=== PATIENT | female | born 1950 | race Caucasian/White ===

== ENCOUNTER 2020-03-05 12:56 | Inpatient (IN) | payer MEDICARE, BC ==
[~2020-03-05] VITALS: Ht 165.1 cm; Wt 76.0 kg
[2020-03-05 16:20] VITALS: BP 187/70
[2020-03-05 17:00] VITALS: BP 168/80
--- NOTE | 2020-03-05 17:10 | HPEPDOC ---
[facility] Medical History & Physical Date of Admission Mar 05, 2020 Date of Service: Mar 05, 2020 History and Physical CHIEF COMPLAINT: facial droop HISTORY OF PRESENT ILLNESS: 69yo F with a hx of L sided CVA (4 years ago, with no residual deficits), [place] (10 years ago, s/p stenting), HTN, GERD, HLD, was transfered from [facility]. She presented there on 03/04/20 after she developed severe R sided temporal headache and nasal pain which was accompanied by profuse and repeated vomiting. On examination in the ER, she was noted to have R sided facial droop, as well as drift to upper extremities. Pateint was noted to in hypertensive urgency in ED with SBP [address] head showed as ymmetric atrophy worse on R, global volume loss with no hemorrhage, shift, or mass-effect. Per OSH notes, patient having difficulty speaking, had hoarse voice, and was unable to hold food in mouth as well as coughing/choking. Patient was transferred to [facility] for further CVA workup, as OSH facility did not have MRI capabilities, and no [employer] service. On arrival to [facility], patient was hypertensive SBP 180s. MRI brain wo contrast was ordered on arrival. Spoke to radiologist, patient has a L sided ischemic cerebellar infarct, along with R carotid artery stenosis. PAST MEDICAL HISTORY: HTN [place] s/p stenting CVA HLD GERD PAST SURGICAL HISTORY: Reviewed with patient, reports no prior surgery SOCIAL HISTORY: Active smoker, 1/2 ppd denies etoh use denies illicit drug use FAMILY HISTORY: Reviewed with patient, reports no pertinent family history ALLERGIES: Please see below. REVIEW OF SYSTEMS: CONSTITUTIONAL: patient denies fevers, chills HEENT: patient denies blurred vision, loss of vision, headache,. CARDIOVASCULAR: patient denies chest pain, palpitations. RESPIRATORY: patient denies shortness of breath, cough, hemoptysis. GASTROINTESTINAL: patient denies abdominal pain, n/v/d, blood in stool. GENITOURINARY: patient denies dysuria, discharge. SKIN: patient denies rashes. MUSCULOSKELETAL: patient denies joint pain, neck pain. NEUROLOGICAL: R facial drop, slurred speech, choking, unable to hold food in mouth, hoarse voice, dysathria. PSYCHIATRIC: patient denies SI/HI. ENDOCRINE: patient denies polyuria, heat intolerance, cold intolerance. HEMATOLOGIC/LYMPHATIC: patient denies easy bruising. HOME MEDICATIONS: Please see below. PHYSICAL EXAMINATION: VITAL SIGNS: please see below General: NAD, comfortable HEENT: PERRLA, EOMI, sclerae clear. R facial droop. Neck: supple, normal ROM, no JVD Respiratory: lungs CTAB, no wheeze, no rales, no crackles CVS: RRR, normal S1, S2, no murmurs Abdo: soft, no masses, no hepatosplenomegaly, BS+, no rebound tenderness Extremities: no edema, pulses 2+ MSK: no joint deformities, normal ROM Neuro: RUE pronator drift. 4 out of 5 strength in the right upper extremity. 4/5 strength in the right lower extremity. No loss of visual funes. 5 out of 5 strength in the left upper extremity and the left lower extremity. Cerebellar examination positive for past-pointing. Horizontal nystagmus. Psych: calm, cooperative, AAO x 3 LABORATORY DATA: See below. IMAGING: CXR 03/05/20: TECHNIQUE: Imaging protocol: XR of the chest Views: 1 view. COMPARISON: No relevant prior studies available. FINDINGS: Lungs: Unremarkable. No consolidation. Pleural space: Unremarkable. No pleural effusion. No pneumothorax. Heart/Mediastinum: Unremarkable. No cardiomegaly. Bones/joints: Unremarkable. IMPRESSION: No acute findings. MICROBIOLOGY: Please see below. ASSESSMENT: . PLAN: # L cerebllar CVA: - MRI showing acute/subacute L cerebellar CVA. Last known normal > 24 hours. tPA was not administered at outside hospital. MRA showing R carotid occlusion. L internal carotid stenosis 50-69% with increased velocities. - Discussed with Dr. Crow Reviewed MRI. Patient has a large 3-4 cm left cerebellar hemisphere stroke extending into the pontine midbrain junction. Check CT brain in am and 24 hours later to follow up on edema. Given 300 mg ASA ND. Check 2D echo. Check lipid panel. PT/OT. [employer] eval for dysphagia/aphasia. NPO for now. Start asa/plavix with lipitor 80 mg qhs. #R internal carotid occlusion: - d/w Dr. Gonzales, no further operative management #L internal carotid stenosis - 50-69%, consulted vascular surgery - Dr. Gonzales will see patient, review imaging - will need outpatient surveillance #HTN: labetalol 10 mg IV prn for SBP > 180 mmHg. takes bystolic 20 mg daily. #CAD: c/w asa/statin #HDL: statin Vital Signs Vital Signs Date Time Temp Pulse Resp B/P (MAP) Pulse Ox O2 Delivery O2 Flow Rate FiO2 03/05/20 16:20 97.1 63 20 187/70 (109) 91 Nasal Cannula 2.0 Home Medications Scheduled Aspirin (Aspirin) 81 Mg Tab.chew, 324 MG PO DAILY Nebivolol HCl (Bystolic) 20 Mg Tablet, 20 MG PO DAILY Allergies Coded Allergies: No Known Allergies (Verified Allergy, Unknown, 03/05/20) A-FIB/CHADSVASC A-FIB History Current/History of A-Fib/PAF?: No Current PO Anticoag Therapy: No DADA PAUL MD Mar 05, 2020 17:10
[2020-03-05] MEDS ORDERED: MOM 30ML SUSPENSION UDC PO PRN (17:15)
[2020-03-05] MEDS ORDERED: MAALOX 30 ML SUSP *UDC PO PRN (17:15)
[2020-03-05] MEDS ORDERED: ACETAMINOPHEN TAB 650MG DOSE (2X325MG) PO PRN (17:15)
--- NOTE | 2020-03-05 17:29 | REPVR ---
PROCEDURE INFORMATION: Exam: XR Chest, 1 View Exam date and time: 03/05/2020 5:24 PM Age: 69 years old Clinical indication: Other: Fluid overload; Additional info: Suspected fluid overload TECHNIQUE: Imaging protocol: XR of the chest Views: 1 view. COMPARISON: No relevant prior studies available. FINDINGS: Lungs: Unremarkable. No consolidation. Pleural space: Unremarkable. No pleural effusion. No pneumothorax. Heart/Mediastinum: Unremarkable. No cardiomegaly. Bones/joints: Unremarkable. IMPRESSION: No acute findings. Electronically signed by: Akbar Reyes On 03/05/2020 17:29:52 PM
[2020-03-05 18:30] VITALS: BP 172/78
[2020-03-05] MEDS ORDERED: SLF 3 ML SYR IV PRN (18:30)
--- NOTE | 2020-03-05 18:31 | REPVR ---
PROCEDURE INFORMATION: Exam: MR Head Without Contrast Exam date and time: 03/05/2020 5:09 PM Age: 69 years old Clinical indication: Speech disturbance and weakness, extremity; Bilateral; Unspecified; Additional info: Suspected CVA TECHNIQUE: Imaging protocol: MR of the head without contrast. COMPARISON: No relevant prior studies available. FINDINGS: Brain: Large focus of acute ischemia demonstrated on diffusion weighted and ADC map images in the left cerebellar hemisphere which is T1 dark and T2 bright suggesting and acute to subacute infarct. Multiple foci of T2 lengthening are demonstrated in the subcortical, periventricular and centrum semiovale white matter consistent with age-related small vessel gliosis. There is mild parenchymal atrophy. Cerebral ventricles: Normal. No ventriculomegaly. Bones/joints: Unremarkable. Paranasal sinuses: Normal as visualized. No acute sinusitis. Mastoid air cells: Normal as visualized. No mastoid effusion. Orbits: Unremarkable. Soft tissues: Unremarkable. IMPRESSION: 1. Large focus of acute ischemia demonstrated on diffusion weighted and ADC map images in the left cerebellar hemisphere which is T1 dark and T2 bright suggesting and acute to subacute infarct. 2. Multiple foci of T2 lengthening are demonstrated in the subcortical, periventricular and centrum semiovale white matter consistent with age-related small vessel gliosis. Electronically signed by: Akbar Reyes On 03/05/2020 18:31:19 PM
[2020-03-05] MEDS ORDERED: BYST20TA2 PO (18:35)
--- NOTE | 2020-03-05 18:35 | REPVR ---
PROCEDURE INFORMATION: Exam: MR Angiogram Head Without Contrast, Arteries Exam date and time: 03/05/2020 5:09 PM Age: 69 years old Clinical indication: Speech disturbance and weakness; Type not specified; Additional info: Suspected CVA TECHNIQUE: Imaging protocol: MR angiogram head without contrast. Exam focused on the arteries. COMPARISON: No relevant prior studies available. FINDINGS: ANTERIOR CIRCULATION: Right internal carotid artery: Occluded right carotid artery. Right middle cerebral artery: No occlusion or significant stenosis. No aneurysm. Right anterior cerebral artery: No occlusion or significant stenosis. No aneurysm. Left internal carotid artery: Atherosclerotic changes in the left cavernous carotid artery. Left middle cerebral artery: No occlusion or significant stenosis. No aneurysm. Left anterior cerebral artery: No occlusion or significant stenosis. No aneurysm. POSTERIOR CIRCULATION: Right vertebral artery: No occlusion or significant stenosis. No aneurysm. Left vertebral artery: No occlusion or significant stenosis. No aneurysm. Basilar artery: No occlusion or significant stenosis. No aneurysm. Right posterior cerebral artery: Right posterior cerebral artery fills via the posterior communicating and basilar arteries. Left posterior cerebral artery: No occlusion or significant stenosis. No aneurysm. IMPRESSION: Occluded right carotid artery. THIS REPORT CONTAINS FINDINGS THAT MAY BE CRITICAL TO PATIENT CARE. The findings were verbally communicated via telephone conference with DADA PAUL at 6:34 PM EDT on 03/05/2020. The findings were acknowledged and understood. Electronically signed by: Akbar Reyes On 03/05/2020 18:35:22 PM
[2020-03-05 18:49] LABS: BASO % 0.4 % (0.0-1.0); EOS # 0.2 10^3/uL (0.0-0.5); EOS % 2.1 % (0.0-3.0); HEMATOCRIT 40.2 % (36.0-47.0); HEMOGLOBIN 13.2 g/dl (12.0-15.5); LYMPH # 2.3 10^3/uL (1.5-5.0); LYMPH % 25.8 % (24.0-44.0); MEAN CORPUSCULAR HEMOGLOBIN 29.9 pg (27.0-33.0); MEAN CORPUSCULAR HGB CONC 32.8 g/dl (32.0-36.5); MONO # 0.8 10^3/uL (0.0-0.8); MONO % 9.1 % (0.0-5.0); NEUTROPHILS # 5.6 10^3/uL (1.5-8.5); NEUTROPHILS % 62.3 % (36.0-66.0); PLATELET COUNT, AUTOMATED 219 10^3/uL (150-450); RED BLOOD COUNT 4.42 10^6/uL (4.00-5.40)
--- NOTE | 2020-03-05 19:02 | REPVR ---
PROCEDURE INFORMATION: Exam: US Duplex Bilateral Extracranial Arteries Exam date and time: 03/05/2020 6:14 PM Age: 69 years old Clinical indication: Speech disturbance; Slurred speech; Additional info: Suspected CVA, weakness TECHNIQUE: Imaging protocol: Real-time Duplex ultrasound scan of the bilateral carotid and vertebral arteries combining grubbs scale, color Doppler and spectral waveform analysis. Bilateral exam. COMPARISON: MRI-Brain without Contrast 03/05/2020 5:44 PM FINDINGS: Right common carotid artery: Mild atherosclerosis in intimal thickening. No occlusion or significant stenosis. Waveforms are normal. Right internal carotid artery: Occluded. Right ICA/CCA ratio: Within normal limits. Right external carotid artery: No stenosis in the origin. Right vertebral artery: Atherosclerotic narrowing at the origin. Otherwise unremarkable. Antegrade flow. Left common carotid artery: Diffuse intimal thickening. No occlusion or significant stenosis. Waveforms are normal. Left internal carotid artery: Moderate atherosclerosis. Elevated peak systolic velocity 235 cm/s. Unremarkable. No occlusion or stenosis. Spectral broadening demonstrated in the waveform. Left ICA/CCA ratio: Within normal limits. Left external carotid artery: No stenosis in the origin. Left vertebral artery: Atherosclerotic narrowing at the origin. Otherwise unremarkable. Antegrade flow. Thryroid: Large calcified thyroid nodule on the right measures 3.2 x 1.4 x 1.5 cm. IMPRESSION: 1. Occluded right carotid artery. 2. Moderate atherosclerotic changes with elevated velocities in the proximal left internal carotid artery consistent with a 50-69% or moderate stenosis. 3. Antegrade flow in the vertebral arteries. 4. Large calcified right thyroid nodule. REFERENCES: SRU CRITERIA. The degree of internal carotid artery stenosis is based on criteria defined by the Society of Radiologists in Ultrasound (SRU). Normal is no stenosis. Mild is less than 50% stenosis. Moderate is 50-69% stenosis. Severe is greater than 69% stenosis to near occlusion. Near occlusion is a markedly narrowed lumen. Total occlusion is no detectable patent lumen. Electronically signed by: Akbar Reyes On 03/05/2020 19:02:18 PM
[2020-03-05 19:11] LABS: HEMOGLOBIN A1c 5.3 %; TROPONIN I 0.03 NG/ML (< 0.10)
[2020-03-05 19:17] LABS: ALBUMIN 3.3 GM/DL (3.2-5.2); BILIRUBIN,TOTAL 0.3 MG/DL (0.2-1.0); CALCIUM LEVEL 9.3 MG/DL (8.8-10.2); CHOLESTEROL RISK RATIO 4.525 (<5); CREATININE FOR GFR 1.16 MG/DL (0.55-1.30); GLOMERULAR FILTRATION RATE 49.5 (>45); MAGNESIUM LEVEL 2.3 MG/DL (1.8-2.4); PHOSPHORUS LEVEL 3.2 MG/DL (2.5-4.9); POTASSIUM SERUM 3.5 MEQ/L (3.5-5.1); THYROID STIMULATING HORMONE 0.684 uIU/ML (0.358-3.740); TOTAL PROTEIN 6.3 GM/DL (6.4-8.2)
[2020-03-05 19:19] LABS: FOLATE 15.9 NG/ML (>5.4)
[2020-03-05 20:00] VITALS: BP 184/86
[2020-03-05] MEDS ORDERED: ASPI81CH48 PO (20:02)
[2020-03-05] MEDS ORDERED: NS 1,000 ML IV SCH (20:09)
[2020-03-05] MEDS: DOCUSATE SODIUM 100 MG CAP PO SCH (20:10)
[2020-03-05] MEDS ORDERED: ASPIRIN 300 MG SUPP PR ONE (20:30)
[2020-03-05] MEDS: SLF 3 ML SYR IV SCH (21:09)
[2020-03-05] MEDS: LABETALOL 100MG/20ML VIAL IV SCH (21:10)
[2020-03-05 22:00] VITALS: BP 172/92
[2020-03-05] MEDS: hydrALAZINE 20MG/ML 1ML VIAL (J0360 PER 20MG) IV SCH (23:21)
[2020-03-06] VITALS (8 sets, daily range): BP systolic 143–198; BP diastolic 73–96
[2020-03-06 05:18] LABS: BASO # 0.1 10^3/uL (0.0-0.2); BASO % 0.5 % (0.0-1.0); EOS # 0.2 10^3/uL (0.0-0.5); EOS % 2.1 % (0.0-3.0); HEMATOCRIT 44.7 % (36.0-47.0); HEMOGLOBIN 14.9 g/dl (12.0-15.5); LYMPH # 1.9 10^3/uL (1.5-5.0); LYMPH % 19.3 % (24.0-44.0); MEAN CORPUSCULAR HEMOGLOBIN 30.1 pg (27.0-33.0); MEAN CORPUSCULAR HGB CONC 33.3 g/dl (32.0-36.5); MEAN CORPUSCULAR VOLUME 90.3 fl (80.0-96.0); MONO # 0.7 10^3/uL (0.0-0.8); MONO % 7.4 % (0.0-5.0); NEUTROPHILS # 6.9 10^3/uL (1.5-8.5); NEUTROPHILS % 70.4 % (36.0-66.0); PLATELET COUNT, AUTOMATED 240 10^3/uL (150-450); RED BLOOD COUNT 4.95 10^6/uL (4.00-5.40); WHITE BLOOD COUNT 9.7 10^3/uL (4.0-10.0)
[2020-03-06 05:45] LABS: ALBUMIN 3.4 GM/DL (3.2-5.2); BILIRUBIN,TOTAL 0.6 MG/DL (0.2-1.0); CALCIUM LEVEL 8.8 MG/DL (8.8-10.2); CREATININE FOR GFR 1.02 MG/DL (0.55-1.30); GLOMERULAR FILTRATION RATE 57.4 (>45); MAGNESIUM LEVEL 2.3 MG/DL (1.8-2.4); POTASSIUM SERUM 3.5 MEQ/L (3.5-5.1); TOTAL PROTEIN 6.5 GM/DL (6.4-8.2)
[2020-03-06] MEDS: SLF 3 ML SYR IV SCH ×3 (06:30→21:44)
[2020-03-06] MEDS: hydrALAZINE 20MG/ML 1ML VIAL (J0360 PER 20MG) IV SCH ×3 (06:30→17:46)
--- NOTE | 2020-03-06 07:30 | IPNPDOC ---
Date Seen The patient was seen on 03/06/20. Progress Note SUBJECTIVE: Patient appears comfortable in bed. She is alert and oriented 3. She denies any new weakness or numbness. She is moving all 4 extremities. She denies chest pain, shortness of breath, fevers, chills as well as nausea, vomiting and diarrhea. She remains nothing by mouth until speech therapy evaluation. OBJECTIVE PHYSICAL EXAMINATION: VITAL SIGNS: Please see below. General: NAD, comfortable HEENT: PERRLA, EOMI, sclerae clear. R facial droop. Neck: supple, normal ROM, no JVD Respiratory: lungs CTAB, no wheeze, no rales, no crackles CVS: RRR, normal S1, S2, no murmurs Abdo: soft, no masses, no hepatosplenomegaly, BS+, no rebound tenderness Extremities: no edema, pulses 2+ MSK: no joint deformities, normal ROM Neuro: RUE pronator drift. Noted improvement in R hemiplegia. 4+/5 strength in the right upper extremity. 4+/5 strength in the right lower extremity. No loss of visual funes. 5 out of 5 strength in the left upper extremity and the left lower extremity. Cerebellar examination positive for past-pointing. Horizontal nystagmus. Psych: calm, cooperative, AAO x 3 LABORATORY DATA, IMAGING STUDIES, MICROBIOLOGY: Please see below. CT head (03/06/20): FINDINGS: Brain: Examination reveals stable appearance of large acute hypodense infarction involving the superior left cerebellar hemisphere and extending into the adjacent carson and midbrain with stable mild mass effect but without significant midline shift. No acute hemorrhage, mass or midline shift is seen. There is mild ill-defined patchy hypodensity within the bilateral cerebral periventricular white matter, consistent with chronic microvascular ischemic changes. There is mild diffuse cerebral atrophy present, consistent with this patient's age. Cerebral ventricles: The ventricular system demonstrates mild diffuse compensatory enlargement. Bones/joints: Unremarkable. No acute fracture. Paranasal sinuses: Visualized sinuses are unremarkable. No fluid levels. Mastoid air cells: Visualized mastoid air cells are well aerated. Vasculature: There is atherosclerotic calcification of the bilateral cavernous carotid arteries. There is moderate dolichoectasia and atherosclerotic calcification of the vertebrobasilar system. Soft tissues: Unremarkable. IMPRESSION: Examination reveals stable appearance of large acute hypodense infarction involving the superior left cerebellar hemisphere and extending into the adjacent carson and midbrain with stable mild mass effect but without significant midline shift. No acute hemorrhage, mass or midline shift is seen. Echocardiogram: 2D echo ordered and pending. DVT prophylaxis ordered?: stephy Whaley ASSESSMENT AND PLAN: 69 yo F with a history of HTN, CVA, [place] (s/p stenting), GERD, presenting to [facility] with R facial droop, R hemiplegia and dysarthria. CT imaging at outside hospital showed R cortical atrophy, without hemorrhage, edema or midline shift. MRI at [facility] showing large (3-4 cm) L hemisphere cerebellar ischemic infarct extending to the pontine-midbrain junction. MRA showing R IC occlusion, L IC stenosis. Neurology and vascualar surgery consulted. Pending repeat CT brain to evaluate for edema/shift given size of ischemic infarct. Pending eval with PT/OT/ST given concerns for gait instability and risk for aspiration. # L cerebllar CVA: - MRI showing acute/subacute L cerebellar CVA. Last known normal > 24 hours. tPA was not administered at outside hospital. MRA showing R carotid occlusion. L internal carotid stenosis 50-69% with increased velocities. - Discussed with Dr. Crow Reviewed MRI. Patient has a large 3-4 cm left cerebellar hemisphere stroke extending into the pontine midbrain junction. Given 300 mg ASA IA. Check 2D echo. Check lipid panel. 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 NPO for now. - asa/plavix with lipitor 80 mg qhs. - CT head 03/06/20 showing stable mild mass effect without midline shift - repeat CT planned for 03/25/20 - ARU consult placed #R internal carotid occlusion: - d/w Dr. Gonzales, no further operative management #L internal carotid stenosis - 50-69%, consulted vascular surgery - Dr. Gonzales will see patient, review imaging - will need outpatient surveillance #HTN: labetalol 10 mg IV prn for SBP > 180 mmHg. takes bystolic 20 mg daily. #CAD: c/w asa/statin. EKG at OSH showing q wave in lead III, c/w prior infarct. #HDL: atorvastatin 80 mg qhs. Dispo: patient will required PT/OT/ST evaluation, possibility for acute/subacute rehab after discharge pending medical clearance. VS, I&O, 24H, Fishbone Vital Signs/I&O Vital Signs Date Time Temp Pulse Resp B/P (MAP) Pulse Ox O2 Delivery O2 Flow Rate FiO2 03/06/20 06:31 184/89 (120) 03/06/20 04:00 97.5 68 18 93 Nasal Cannula 2.0 I&O- Last 24 Hours up to 6 AM 03/06/20 05:59 Intake Total 200 ml Output Total 300 ml Balance -100 ml Laboratory Data 24H LABS Laboratory Tests 2 03/05/20 18:27: Immature Granulocyte % (Auto) 0.3, Neutrophils (%) (Auto) 62.3, Lymphocytes (%) (Auto) 25.8, Monocytes (%) (Auto) 9.1H, Eosinophils (%) (Auto) 2.1, Basophils (% ) (Auto) 0.4, Neutrophils # (Auto) 5.6, Lymphocytes # (Auto) 2.3, Monocytes # (Auto) 0.8, Eosinophils # (Auto) 0.2, Basophils # (Auto) 0.0, Nucleated Red Blood Cells % (auto) 0.0, Anion Gap 6L, Glomerular Filtration Rate 49.5, Estimated Mean Plasma Glucose 105, Hemoglobin A1c 5.3, Calcium Level 9.3, Phosphorus Level 3.2, Magnesium Level 2.3, Total Bilirubin 0.3, Aspartate Amino Transf (AST/SGOT) 17, Alanine Aminotransferase (ALT/SGPT) 15, Alkaline Phosphatase 93, Troponin I 0.03, LA-Lcl-W-Type Natriuretic Peptide 8092H, Total Protein 6.3L, Albumin 3.3, Albumin/Globulin Ratio 1.1L, Triglycerides Level 79, Total Cholesterol 181, LDL Cholesterol 125H, Non-HDL Cholesterol (LDL + VLDL) 141, Total HDL Cholesterol 40, Cholesterol/HDL Ratio 4.525, Folate 15.9, Thyroid Stimulating Hormone (TSH) 0.684 03/06/20 04:43: Immature Granulocyte % (Auto) 0.3, Neutrophils (%) (Auto) 70.4H, Lymphocytes (%) (Auto) 19.3L, Monocytes (%) (Auto) 7.4H, Eosinophils (%) (Auto) 2.1, Basophils (%) (Auto) 0.5, Neutrophils # (Auto) 6.9, Lymphocytes # (Auto) 1.9, Monocytes # (Auto) 0.7, Eosinophils # (Auto) 0.2, Basophils # (Auto) 0.1, Nucleated Red Blood Cells % (auto) 0.0, Anion Gap 6L, Glomerular Filtration Rate 57.4, Calcium Level 8.8, Magnesium Level 2.3, Total Bilirubin 0.6#, Aspartate Amino Transf (AST/SGOT) 24, Alanine Aminotransferase (ALT/SGPT) 14, Alkaline Phosphatase 91, Total Protein 6.5, Albumin 3.4, Albumin/Globulin Ratio 1.1L CBC/BMP Laboratory Tests 03/05/20 18:27 03/06/20 04:43 DADA PAUL MD Mar 06, 2020 07:30
--- NOTE | 2020-03-06 08:10 | REPVR ---
PROCEDURE INFORMATION: Exam: CT Head Without Contrast Exam date and time: 03/06/2020 7:22 AM Age: 69 years old Clinical indication: Other: CVA; Additional info: R/O edema given large L cerebellar CVA TECHNIQUE: Imaging protocol: Computed tomography of the head without contrast. Radiation optimization: All CT scans at this facility use at least one of these dose optimization techniques: automated exposure control; mA and/or kV adjustment per patient size (includes targeted exams where dose is matched to clinical indication); or iterative reconstruction. Other technique: STROKE PROTOCOL was implemented. COMPARISON: MRI-Brain without Contrast 03/05/2020 5:44 PM FINDINGS: Brain: Examination reveals stable appearance of large acute hypodense infarction involving the superior left cerebellar hemisphere and extending into the adjacent carson and midbrain with stable mild mass effect but without significant midline shift. No acute hemorrhage, mass or midline shift is seen. There is mild ill-defined patchy hypodensity within the bilateral cerebral periventricular white matter, consistent with chronic microvascular ischemic changes. There is mild diffuse cerebral atrophy present, consistent with this patient's age. Cerebral ventricles: The ventricular system demonstrates mild diffuse compensatory enlargement. Bones/joints: Unremarkable. No acute fracture. Paranasal sinuses: Visualized sinuses are unremarkable. No fluid levels. Mastoid air cells: Visualized mastoid air cells are well aerated. Vasculature: There is atherosclerotic calcification of the bilateral cavernous carotid arteries. There is moderate dolichoectasia and atherosclerotic calcification of the vertebrobasilar system. Soft tissues: Unremarkable. IMPRESSION: Examination reveals stable appearance of large acute hypodense infarction involving the superior left cerebellar hemisphere and extending into the adjacent carson and midbrain with stable mild mass effect but without significant midline shift. No acute hemorrhage, mass or midline shift is seen. ASSESSMENT: ASPECTS ([place] Stroke Program Early CT Score) is 10. Electronically signed by: Van Trejo On 03/06/2020 08:10:41 AM
[2020-03-06] MEDS: ASPIRIN 81 MG CHEW TABLET PO SCH (09:00)
[2020-03-06] MEDS ORDERED: ASPIRIN 81 MG ENTERIC TAB PO SCH (09:00)
[2020-03-06] MEDS ORDERED: NEBIVOLOL 5 MG TAB (BYSTOLIC) PO SCH (09:00)
[2020-03-06] MEDS: DOCUSATE SODIUM 100 MG CAP PO SCH ×2 (09:00→21:44)
[2020-03-06] MEDS: ENOXAPARIN 40MG/0.4ML SYRINGE (J1650 PER 10MG) SC SCH (09:00)
[2020-03-06] MEDS: CLOPIDOGREL 75 MG TAB PO SCH (09:00)
--- NOTE | 2020-03-06 14:27 | CR.PDOC ---
General Date of Consultation: Mar 06, [address] Gonzales REASON FOR CONSULTATION: Carotid stenosis HISTORY OF PRESENT ILLNESS: The patient is a 69-year-old female with history of left-sided CVA 4 years ago with no residual deficits, transferred from outside hospital after presenting there 03/04/20 with right sided temporal headache, accompanied by vomiting. In the emergency room there she was noted to have right-sided facial droop, dysarthria, hoarseness of her voice, and dysphagia. Blood pressure was elevated to 215 systolic. Vascular surgery is consulted regarding carotid stenosis. ALLERGIES: Please see below. HOME MEDICATIONS: Please see below. PAST MEDICAL HISTORY: Hypertension CAD/[place]/cardiac stent 2009 CVA Dyslipidemia GERD PAST SURGICAL HISTORY: Denies any prior surgeries FAMILY HISTORY: Hypertension SOCIAL HISTORY: Smoker, one half pack per day. REVIEW OF SYSTEMS: As noted in HPI otherwise 11 point review of systems is unremarkable. PHYSICAL EXAMINATION: General: NAD HEENT: MMM, R facial droop. Neck: supple, Respiratory: lungs CTA CV: S1S2 RRR Abdo: soft,NT Extremities: no edema Psych: A/O Imaging. Carotid ultrasound IMPRESSION: 1. Occluded right carotid artery. 2. Moderate atherosclerotic changes with elevated velocities in the proximal left internal carotid artery consistent with a 50-69% or moderate stenosis. 3. Antegrade flow in the vertebral arteries. 4. Large calcified right thyroid nodule. ASSESSMENT/PLAN: Carotid stenosis. The patient's carotid ultrasound has been reviewed by Dr. Gonzales. The right ICA is occluded. On the left, left ICA peak systolic velocity 235, end-diastolic velocity 87 and ICA/CCA ratio 1.98, vertebrals antegrade bilaterally. No vascular intervention is recommended at this time. Plan is to continue with surveillance. Continue to follow as outpatient, Recheck carotid ultrasound in 6 months. Continue Lipitor/Plavix/aspirin. Vital Signs/I&O Vital Signs Date Time Temp Pulse Resp B/P (MAP) Pulse Ox O2 Delivery O2 Flow Rate FiO2 03/06/20 06:31 184/89 (120) 03/06/20 04:00 97.5 68 18 93 Nasal Cannula 2.0 I&O- Last 24 Hours up to 6 AM 03/06/20 05:59 Intake Total 200 ml Output Total 300 ml Balance -100 ml Laboratory Data Labs 24H Laboratory Tests 2 03/05/20 18:27: Immature Granulocyte % (Auto) 0.3, Neutrophils (%) (Auto) 62.3, Lymphocytes (%) (Auto) 25.8, Monocytes (%) (Auto) 9.1H, Eosinophils (%) (Auto) 2.1, Basophils (%) (Auto) 0.4, Neutrophils # (Auto) 5.6, Lymphocytes # (Auto) 2.3, Monocytes # (Auto) 0.8, Eosinophils # (Auto) 0.2, Basophils # (Auto) 0.0, Nucleated Red Blood Cells % (auto) 0.0, Anion Gap 6L, Glomerular Filtration Rate 49.5, Estimated Mean Plasma Glucose 105, Hemoglobin A1c 5.3, Calcium Level 9.3, Phosphorus Level 3.2, Magnesium Level 2.3, Total Bilirubin 0.3, Aspartate Amino Transf (AST/SGOT) 17, Alanine Aminotransferase (ALT/SGPT) 15, Alkaline Phosphatase 93, Troponin I 0.03, HT-Nlz-R-Type Natriuretic Peptide 8092H, Total Protein 6.3L, Albumin 3.3, Albumin/Globulin Ratio 1.1L, Triglycerides Level 79, Total Cholesterol 181, LDL Cholesterol 125H, Non-HDL Cholesterol (LDL + VLDL) 141, Total HDL Cholesterol 40, Cholesterol/HDL Ratio 4.525, Folate 15.9, Thyroid Stimulating Hormone (TSH) 0.684 03/06/20 04:43: Immature Granulocyte % (Auto) 0.3, Neutrophils (%) (Auto) 70.4H, Lymphocytes (%) (Auto) 19.3L, Monocytes (%) (Auto) 7.4H, Eosinophils (%) (Auto) 2.1, Basophils (%) (Auto) 0.5, Neutrophils # (Auto) 6.9, Lymphocytes # (Auto) 1.9, Monocytes # (Auto) 0.7, Eosinophils # (Auto) 0.2, Basophils # (Auto) 0.1, Nucleated Red Blood Cells % (auto) 0.0, Anion Gap 6L, Glomerular Filtration Rate 57.4, Calcium Level 8.8, Magnesium Level 2.3, Total Bilirubin 0.6#, Aspartate Amino Transf (AST/SGOT) 24, Alanine Aminotransferase (ALT/SGPT) 14, Alkaline Phosphatase 91, Total Protein 6.5, Albumin 3.4, Albumin/Globulin Ratio 1.1L CBC/BMP Laboratory Tests 03/05/20 18:27 03/06/20 04:43 Allergies Coded Allergies: No Known Allergies (Verified Allergy, Unknown, 03/05/20) Home Medications Scheduled Aspirin (Aspirin) 81 Mg Tab.chew, 324 MG PO DAILY, (Reported) Nebivolol HCl (Bystolic) 20 Mg Tablet, 20 MG PO DAILY, (Reported) Abigail Lowery Mar 06, 2020 08:02
[2020-03-06] MEDS ORDERED: OXYMETAZOLINE 0.05% NASAL SPRAY (AFRIN) ONE (16:45)
[2020-03-06] MEDS: ATORVASTATIN 20 MG TAB PO SCH (21:44)
[2020-03-07] VITALS: BP 158/92
[2020-03-07 04:00] VITALS: BP 164/86
[2020-03-07 05:38] LABS: BASO % 0.5 % (0.0-1.0); EOS # 0.4 10^3/uL (0.0-0.5); EOS % 4.1 % (0.0-3.0); HEMATOCRIT 44.2 % (36.0-47.0); HEMOGLOBIN 14.9 g/dl (12.0-15.5); LYMPH # 1.9 10^3/uL (1.5-5.0); LYMPH % 22.3 % (24.0-44.0); MEAN CORPUSCULAR HEMOGLOBIN 30.3 pg (27.0-33.0); MEAN CORPUSCULAR HGB CONC 33.7 g/dl (32.0-36.5); MONO # 0.9 10^3/uL (0.0-0.8); MONO % 10.2 % (0.0-5.0); NEUTROPHILS # 5.4 10^3/uL (1.5-8.5); NEUTROPHILS % 62.7 % (36.0-66.0); PLATELET COUNT, AUTOMATED 248 10^3/uL (150-450); RED BLOOD COUNT 4.91 10^6/uL (4.00-5.40); WHITE BLOOD COUNT 8.6 10^3/uL (4.0-10.0)
[2020-03-07] MEDS: hydrALAZINE 20MG/ML 1ML VIAL (J0360 PER 20MG) IV SCH ×4 (06:00→17:25)
[2020-03-07] MEDS: SLF 3 ML SYR IV SCH ×3 (06:06→22:41)
[2020-03-07 06:21] LABS: ALBUMIN 3.1 GM/DL (3.2-5.2); BILIRUBIN,TOTAL 0.8 MG/DL (0.2-1.0); CALCIUM LEVEL 8.5 MG/DL (8.8-10.2); CREATININE FOR GFR 1.04 MG/DL (0.55-1.30); GLOMERULAR FILTRATION RATE 56.1 (>45); MAGNESIUM LEVEL 2.1 MG/DL (1.8-2.4); POTASSIUM SERUM 3.7 MEQ/L (3.5-5.1); TOTAL PROTEIN 6.5 GM/DL (6.4-8.2)
[2020-03-07 08:00] VITALS: BP 130/62
[2020-03-07] MEDS ORDERED: OXYMETAZOLINE 0.05% NASAL SPRAY (AFRIN) ONE (08:00)
--- NOTE | 2020-03-07 08:38 | REPVR ---
PROCEDURE INFORMATION: Exam: CT Head Without Contrast Exam date and time: 03/07/2020 6:00 AM Age: 69 years old Clinical indication: Abnormal findings; Abnormal radiologic findings of head/skull; Not specified; Additional info: R/O edema given large L cerebellar CVA TECHNIQUE: Imaging protocol: Computed tomography of the head without contrast. Radiation optimization: All CT scans at this facility use at least one of these dose optimization techniques: automated exposure control; mA and/or kV adjustment per patient size (includes targeted exams where dose is matched to clinical indication); or iterative reconstruction. COMPARISON: CT Head without contrast 03/06/2020 7:49 AM FINDINGS: Brain: Generalized parenchymal atrophy and evidence of microvascular ischemic disease involving periventricular subcortical white matter bilaterally. Evolving left cerebellar infarct significantly changed from previous exam. Local mass effect without midline shift. No intracranial hemorrhage. Cerebral ventricles: No ventriculomegaly. Bones/joints: Unremarkable. No acute fracture. Paranasal sinuses: Visualized sinuses are unremarkable. No fluid levels. Mastoid air cells: Visualized mastoid air cells are well aerated. Soft tissues: Unremarkable. IMPRESSION: No significant interval change. Electronically signed by: Trevon Carreno On 03/07/2020 08:37:59 AM
--- NOTE | 2020-03-07 08:57 | IPNPDOC ---
Date Seen The patient was seen on 03/06/20. Progress Note Patient seen and examined. I discussed with her that at this point, I think the elevated velocities in her left internal carotid artery are secondary to the occlusion on the right. Sometimes we see this in a compensatory fashion. When I looked at the grayscale and the color images, the patient has minimal plaque in the left ICA and common carotid artery bulb. Therefore, at this time, there is no indication for intervention on the left ICA. Regarding the right ICA occlusion, no further intervention is required for an occlusion of the carotid artery. We would like to follow the patient in 6 months in clinic with a repeat carotid duplex. I discussed this with her and she is agreeable. Regarding her left cerebellar stroke, her left vertebral artery is widely patent, so I suspect this may have been an embolic event, possibly from a cardiac etiology. We recommend best medical management for this patient with aspirin and Plavix and statin if she can tolerate, and the hospitalists have provided this for her. We appreciate the opportunity to participate in the care of this patient. VS, I&O, 24H, [place] Vital Signs/I&O Vital Signs Date Time Temp Pulse Resp B/P (MAP) Pulse Ox O2 Delivery O2 Flow Rate FiO2 03/07/20 08:00 98.0 55 18 130/62 (84) 93 Room Air 03/06/20 04:00 2.0 I&O- Last 24 Hours up to 6 AM 03/07/20 06:00 Intake Total 780 ml Output Total 500 ml Balance 280 ml Laboratory Data 24H LABS Laboratory Tests 2 03/07/20 05:07: Immature Granulocyte % (Auto) 0.2, Neutrophils (%) (Auto) 62.7, Lymphocytes (%) (Auto) 22.3L, Monocytes (%) (Auto) 10.2H, Eosinophils (%) (Auto) 4.1H, Basophils (%) (Auto) 0.5, Neutrophils # (Auto) 5.4, Lymphocytes # (Auto) 1.9, Monocytes # (Auto) 0.9H, Eosinophils # (Auto) 0.4, Basophils # (Auto) 0.0, Nucleated Red Blood Cells % (auto) 0.0, Anion Gap 5L, Glomerular Filtration Rate 56.1, Calcium Level 8.5L, Magnesium Level 2.1, Total Bilirubin 0.8, Aspartate Amino Transf (AST/SGOT) 24, Alanine Aminotransferase (ALT/SGPT) 15, Alkaline Phosphatase 86, Total Protein 6.5, Albumin 3.1L, Albumin/Globulin Ratio 0.9L CBC/BMP Laboratory Tests 03/07/20 05:07 GERARD JUAREZ MD Mar 07, 2020 08:57
[2020-03-07] MEDS: DOCUSATE SODIUM 100 MG CAP PO SCH ×2 (10:49→22:40)
[2020-03-07] MEDS: CLOPIDOGREL 75 MG TAB PO SCH (10:49)
[2020-03-07] MEDS: ENOXAPARIN 40MG/0.4ML SYRINGE (J1650 PER 10MG) SC SCH (10:49)
[2020-03-07] MEDS: ASPIRIN 81 MG CHEW TABLET PO SCH (10:49)
[2020-03-07 12:25] VITALS: BP 165/80
[2020-03-07 16:00] VITALS: BP 149/89
[2020-03-07 20:00] VITALS: BP 152/69
--- NOTE | 2020-03-07 20:13 | IPNPDOC ---
Date Seen The patient was seen on 03/07/20. Progress Note SUBJECTIVE: She was seen and examined at bedside. present. Patient very insistent on returning home. Explained that acute rehabilitation is tremendously important for future recovery. Patient is currently unsteady on her feet. An unsteady gait sway to the right. Denies chest pain, shortness of breath, nausea, vomiting, diarrhea. Tolerating mechanically altered diet as per speech therapy recommendations. OBJECTIVE PHYSICAL EXAMINATION: VITAL SIGNS: Please see below. General: NAD, comfortable HEENT: PERRLA, EOMI, sclerae clear. R facial droop. Neck: supple, normal ROM, no JVD Respiratory: lungs CTAB, no wheeze, no rales, no crackles CVS: RRR, normal S1, S2, no murmurs Abdo: soft, no masses, no hepatosplenomegaly, BS+, no rebound tenderness Extremities: no edema, pulses 2+ MSK: no joint deformities, normal ROM Neuro: RUE pronator drift. Noted improvement in R hemiplegia. 4+/5 strength in the right upper extremity. 4+/5 strength in the right lower extremity. No loss of visual funes. 5 out of 5 strength in the left upper extremity and the left lower extremity. Cerebellar examination positive for past-pointing. Horizontal nystagmus. Unsteady gait, sway to right. Psych: calm, cooperative, AAO x 3 LABORATORY DATA, IMAGING STUDIES, MICROBIOLOGY: Please see below. CT head wo contrast: FINDINGS: Brain: Generalized parenchymal atrophy and evidence of microvascular ischemic disease involving periventricular subcortical white matter bilaterally. Evolving left cerebellar infarct significantly changed from previous exam. Local mass effect without midline shift. No intracranial hemorrhage. Cerebral ventricles: No ventriculomegaly. Bones/joints: Unremarkable. No acute fracture. Paranasal sinuses: Visualized sinuses are unremarkable. No fluid levels. Mastoid air cells: Visualized mastoid air cells are well aerated. Soft tissues: Unremarkable. IMPRESSION: No significant interval change. Echocardiogram: Performed. Discussed with Dr. Garza on 03/06/2020., Mild mitral stenosis. Enlarged left atrium. Concern for possible underlying A. fib. However, none seen on telemetry for the past 48 hours DVT prophylaxis ordered?: Y, lovenox ASSESSMENT AND PLAN: 69 yo F with a history of HTN, CVA, [place] (s/p stenting), GERD, presenting to [facility] with R facial droop, R hemiplegia and dysarthria. CT imaging at outside hospital showed R cortical atrophy, without hemorrhage, edema or midline shift. MRI at [facility] showing large (3-4 cm) L hemisphere cerebellar ischemic infarct extending to the pontine-midbrain junction. MRA showing R IC occlusion, L IC stenosis. Neurology and vascualar surgery consulted. Pending repeat CT brain to evaluate for edema/shift given size of ischemic infarct. Pending eval with PT/OT/ST given concerns for gait instability and risk for aspiration. # L cerebllar CVA: - MRI showing acute/subacute L cerebellar CVA. Last known normal > 24 hours. tPA was not administered at outside hospital. MRA showing R carotid occlusion. L internal carotid stenosis 50-69% with increased velocities. - Discussed with Dr. Crow Reviewed MRI. Patient has a large 3-4 cm left cerebellar hemisphere stroke extending into the pontine midbrain junction. Given 300 mg ASA CA. Check 2D echo. Check lipid panel. PT/OT. NICK SETTER eval for dysphagia/aphasia. - s/p Flex endoscopic laryngoscopy. Rec outpatient ST. Rec outpatient ENT eval, to assess function of larynx and vocal fols as suspiciopsn for disrupted resp coordination and vocal fold movement. Lvl 3 mech soft diet with thin liqs. - . Discussed echo findings, i.e., enlarged left atrium and mitral stenosis, w ith Dr. Garza. Possible underlying atrial fibrillation. No A. fib noted on telemetry for the past 48 hours. Will recommend follow-up with cardiology as an outpatient for prolonged cardiac rhythm monitoring. - asa/plavix with lipitor 80 mg qhs. - CT head 03/06/20 showing stable mild local mass effect without midline shift - CT head 03/07/20 showing stable local mass effect without midline shift - Discussed with Dr. Sow had no repeat CT on 03 08, required as the CT scan on 03/07 represents 72 hour imaging after initial stroke. Stable change. No increase in mass effect. - [facility] consult placed, patient is a good candidate, however, refusing inpatient rehabilitation at [facility] wishes to go to [place] close to her residence #R internal carotid occlusion: - d/w Dr. Gonzales, no further operative management #L internal carotid stenosis - 50-69%, consulted vascular surgery - Dr. Gonzales will see patient, review imaging - will need outpatient surveillance #First degree AV block with bradycardia: EKG reviewed today. CA interval 200 ms, asymptomatic. Holding BB. #HTN: labetalol 10 mg IV prn for SBP > 180 mmHg. Holding bystolic as HR 40s. #CAD: c/w asa/statin. EKG at OSH showing q wave in lead III, c/w prior infarct. #HDL: atorvastatin 80 mg qhs. Dispo: Ongoing physical therapy. Recommending acute rehabilitation. Patient refusing a review. Wishes to go for acute rehabilitation in [place], near to her residence. VS, I&O, 24H, [place]bone Vital Signs/I&O Vital Signs Date Time Temp Pulse Resp B/P (MAP) Pulse Ox O2 Delivery O2 Flow Rate FiO2 03/07/20 16:00 98.0 56 18 149/89 (109) 96 Room Air 03/06/20 04:00 2.0 l I&O- Last 24 Hours up to 6 AM 03/07/20 06:00 Intake Total 780 ml Output Total 500 ml Balance 280 ml Laboratory Data 24H LABS Laboratory Tests 2 03/07/20 05:07: Immature Granulocyte % (Auto) 0.2, Neutrophils (%) (Auto) 62.7, Lymphocytes (%) (Auto) 22.3L, Monocytes (%) (Auto) 10.2H, Eosinophils (%) (Auto) 4.1H, Basophils (%) (Auto) 0.5, Neutrophils # (Auto) 5.4, Lymphocytes # (Auto) 1.9, Monocytes # (Auto) 0.9H, Eosinophils # (Auto) 0.4, Basophils # (Auto) 0.0, Nucleated Red Blood Cells % (auto) 0.0, Anion Gap 5L, Glomerular Filtration Rate 56.1, Calcium Level 8.5L, Magnesium Level 2.1, Total Bilirubin 0.8, Aspartate Amino Transf (AST/SGOT) 24, Alanine Aminotransferase (ALT/SGPT) 15, Alkaline Phosphatase 86, Total Protein 6.5, Albumin 3.1L, Albumin/Globulin Ratio 0.9L CBC/BMP Laboratory Tests 03/07/20 05:07 DADA PAUL MD Mar 07, 2020 20:12
[2020-03-07] MEDS: ATORVASTATIN 20 MG TAB PO SCH (22:41)
[2020-03-08] VITALS (7 sets, daily range): BP systolic 137–182; BP diastolic 66–120
[2020-03-08 05:55] LABS: BASO % 0.4 % (0.0-1.0); EOS # 0.4 10^3/uL (0.0-0.5); EOS % 4.8 % (0.0-3.0); HEMATOCRIT 43.4 % (36.0-47.0); HEMOGLOBIN 14.3 g/dl (12.0-15.5); LYMPH # 1.9 10^3/uL (1.5-5.0); MEAN CORPUSCULAR HEMOGLOBIN 29.8 pg (27.0-33.0); MEAN CORPUSCULAR HGB CONC 32.9 g/dl (32.0-36.5); MEAN CORPUSCULAR VOLUME 90.4 fl (80.0-96.0); MONO # 0.7 10^3/uL (0.0-0.8); MONO % 9.8 % (0.0-5.0); NEUTROPHILS # 4.5 10^3/uL (1.5-8.5); NEUTROPHILS % 59.7 % (36.0-66.0); PLATELET COUNT, AUTOMATED 222 10^3/uL (150-450); WHITE BLOOD COUNT 7.5 10^3/uL (4.0-10.0)
[2020-03-08] MEDS: hydrALAZINE 20MG/ML 1ML VIAL (J0360 PER 20MG) IV SCH ×5 (06:00→23:42)
[2020-03-08] MEDS: SLF 3 ML SYR IV SCH ×3 (06:08→20:27)
[2020-03-08 06:24] LABS: ALBUMIN 3.1 GM/DL (3.2-5.2); BILIRUBIN,TOTAL 0.6 MG/DL (0.2-1.0); CREATININE FOR GFR 1.02 MG/DL (0.55-1.30); GLOMERULAR FILTRATION RATE 57.4 (>45); MAGNESIUM LEVEL 2.2 MG/DL (1.8-2.4); TOTAL PROTEIN 5.9 GM/DL (6.4-8.2)
[2020-03-08] MEDS: CLOPIDOGREL 75 MG TAB PO SCH (08:45)
[2020-03-08] MEDS: ASPIRIN 81 MG CHEW TABLET PO SCH (08:45)
[2020-03-08] MEDS: ENOXAPARIN 40MG/0.4ML SYRINGE (J1650 PER 10MG) SC SCH (08:45)
[2020-03-08] MEDS: DOCUSATE SODIUM 100 MG CAP PO SCH ×2 (08:45→20:27)
--- NOTE | 2020-03-08 11:50 | IPNPDOC ---
Date Seen The patient was seen on 03/08/20. Progress Note SUBJECTIVE: Patient was seen and examined at bedside this morning. Patient denies new onset vision changes or subjective focal weakness or numbness. Patient is very adamant about returning home. I explained at length that she requires inpatient rehabilitation or otherwise a form of subacute rehabilitation prior to be deemed safe to return home as was outlined by physical therapy. She has requested me to call her [id number] Shruthi. I spoke with her at phone #[phone]. The family is in the process of making Shruthi her healthcare proxy. She agrees that for safety reasons physical therapy is appropriate. I explained that we will do our best to arrange for subacute rehabilitation closer to the patient's home. This can be addressed on Tuesday03/10/20 with [facility]. OBJECTIVE PHYSICAL EXAMINATION: VITAL SIGNS: Please see below. General: NAD, comfortable HEENT: PERRLA, EOMI, sclerae clear. R facial droop. Neck: supple, normal ROM, no JVD Respiratory: lungs CTAB, no wheeze, no rales, no crackles CVS: RRR, normal S1, S2, no murmurs Abdo: soft, no masses, no hepatosplenomegaly, BS+, no rebound tenderness Extremities: no edema, pulses 2+ MSK: no joint deformities, normal ROM Neuro: RUE pronator drift. Noted improvement in R hemiplegia. 4+/5 strength in the right upper extremity. 4+/5 strength in the right lower extremity. No loss of visual funes. 5 out of 5 strength in the left upper extremity and the left lower extremity. Cerebellar examination positive for past-pointing. Horizontal nystagmus. Unsteady gait, sway to right. Psych: calm, cooperative, AAO x 3 LABORATORY DATA, IMAGING STUDIES, MICROBIOLOGY: Please see below. CT head wo contrast: FINDINGS: Brain: Generalized parenchymal atrophy and evidence of microvascular ischemic disease involving periventricular subcortical white matter bilaterally. Evolving left cerebellar infarct significantly changed from previous exam. Local mass effect without midline shift. No intracranial hemorrhage. Cerebral ventricles: No ventriculomegaly. Bones/joints: Unremarkable. No acute fracture. Paranasal sinuses: Visualized sinuses are unremarkable. No fluid levels. Mastoid air cells: Visualized mastoid air cells are well aerated. Soft tissues: Unremarkable. IMPRESSION: No significant interval change. Echocardiogram: Performed. Discussed with Dr. Garza on 03/06/2020., Mild mitral stenosis. Enlarged left atrium. Concern for possible underlying A. fib. However, none seen on telemetry for the past 48 hours DVT prophylaxis ordered?: stephy Whaley ASSESSMENT AND PLAN: 69 yo F with a history of HTN, CVA, [place] (s/p stenting), GERD, presenting to [facility] with R facial droop, R hemiplegia and dysarthria. CT imaging at outside hospital showed R cortical atrophy, without hemorrhage, edema or midline shift. MRI at [facility] showing large (3-4 cm) L hemisphere cerebellar ischemic infarct extending to the pontine-midbrain junction. MRA showing R IC occlusion, L IC stenosis. Neurology and vascualar surgery consulted. Pending repeat CT brain to evaluate for edema/shift given size of ischemic infarct. Physical therapy recommending acute inpatient rehabilitation, which the patient has declined. Patient asking to be transferred to subacute rehabilitation closer to her place of residence at [place]. # L cerebellar CVA: - MRI showing acute/subacute L cerebellar CVA. Last known normal > 24 hours. tPA was not administered at outside hospital. MRA showing R carotid occlusion. L internal carotid stenosis 50-69% with increased velocities. - Discussed with Dr. Crow Reviewed MRI. Patient has a large 3-4 cm left cerebe llar hemisphere stroke extending into the pontine midbrain junction. Given 300 mg ASA MO. Check 2D echo. Check lipid panel. PT/OT. CASTING MOLDER eval for dysphagia/aphasia. - s/p Flex endoscopic laryngoscopy. Rec outpatient ST. Rec outpatient ENT eval, to assess function of larynx and vocal fols as suspiciopsn for disrupted resp coordination and vocal fold movement. Lvl 3 mech soft diet with thin liqs. - . Discussed echo findings, i.e., enlarged left atrium and mitral stenosis, with Dr. Garza. Possible underlying atrial fibrillation. No A. fib noted on telemetry for the past 48 hours. Will recommend follow-up with cardiology as an outpatient for prolonged cardiac rhythm monitoring. - asa/plavix with lipitor 80 mg qhs. - CT head 03/06/20 showing stable mild local mass effect without midline shift - CT head 03/07/20 showing stable local mass effect without midline shift - Discussed with Dr. Sow had no repeat CT on 03 08, required as the CT scan on 03/07 represents 72 hour imaging after initial stroke. Stable change. No increase in mass effect. - ARU consult placed, patient is a good candidate, however, refusing inpatient rehabilitation at [facility] wishes to go to [place] close to her residence #R internal carotid occlusion: - d/w Dr. Gonzales, no further operative management #L internal carotid stenosis - 50-69%, consulted vascular surgery - Dr. Gonzales will see patient, review imaging - will need outpatient surveillance #First degree AV block with bradycardia: EKG reviewed today. MO interval 200 ms, asymptomatic. Holding BB. #HTN: labetalol 10 mg IV prn for SBP > 180 mmHg. Holding bystolic as HR 40s. #CAD: c/w asa/statin. EKG at OSH showing q wave in lead III, c/w prior infarct. #HDL: atorvastatin 80 mg qhs. Dispo: Ongoing physical therapy. Recommending acute rehabilitation, patient has declined. Patient has expressed wishes to go home several times. At this time, this would be unsafe, which I have discussed with her and her family. Family agrees for rehab. Will work with [facility] for subacute rehab near to patient residence. VS, I&O, 24H, [facility] Vital Signs/I&O Vital Signs Date Time Temp Pulse Resp B/P (MAP) Pulse Ox O2 Delivery O2 Flow Rate FiO2 03/08/20 11:46 98.5 68 18 140/80 (100) 92 Room Air 03/06/20 04:00 2.0 I&O- Last 24 Hours up to 6 AM 03/08/20 06:00 Intake Total 1280 ml Output Total 1300 ml Balance -20 ml Laboratory Data 24H LABS Laboratory Tests 2 03/08/20 05:15: Immature Granulocyte % (Auto) 0.3, Neutrophils (%) (Auto) 59.7, Lymphocytes (%) (Auto) 25.0, Monocytes (%) (Auto) 9.8H, Eosinophils (%) (Auto) 4.8H, Basophils (%) (Auto) 0.4, Neutrophils # (Auto) 4.5, Lymphocytes # (Auto) 1.9, Monocytes # (Auto) 0.7, Eosinophils # (Auto) 0.4, Basophils # (Auto) 0.0, Nucleated Red Bloo d Cells % (auto) 0.0, Anion Gap 7L, Glomerular Filtration Rate 57.4, Calcium Level 9.0, Magnesium Level 2.2, Total Bilirubin 0.6, Aspartate Amino Transf (AST/SGOT) 23, Alanine Aminotransferase (ALT/SGPT) 17, Alkaline Phosphatase 91, Total Protein 5.9L, Albumin 3.1L, Albumin/Globulin Ratio 1.1L CBC/BMP Laboratory Tests 03/08/20 05:15 DADA PAUL MD Mar 08, 2020 11:50
[2020-03-08] MEDS: ATORVASTATIN 20 MG TAB PO SCH (20:27)
[2020-03-09] VITALS (9 sets, daily range): BP systolic 120–184; BP diastolic 62–90
[2020-03-09 05:11] LABS: BASO % 0.5 % (0.0-1.0); EOS # 0.3 10^3/uL (0.0-0.5); EOS % 4.4 % (0.0-3.0); HEMATOCRIT 42.7 % (36.0-47.0); HEMOGLOBIN 14.3 g/dl (12.0-15.5); LYMPH # 1.6 10^3/uL (1.5-5.0); LYMPH % 22.1 % (24.0-44.0); MEAN CORPUSCULAR HEMOGLOBIN 30.3 pg (27.0-33.0); MEAN CORPUSCULAR HGB CONC 33.5 g/dl (32.0-36.5); MEAN CORPUSCULAR VOLUME 90.5 fl (80.0-96.0); MONO # 0.7 10^3/uL (0.0-0.8); MONO % 9.4 % (0.0-5.0); NEUTROPHILS # 4.7 10^3/uL (1.5-8.5); NEUTROPHILS % 63.5 % (36.0-66.0); PLATELET COUNT, AUTOMATED 228 10^3/uL (150-450); RED BLOOD COUNT 4.72 10^6/uL (4.00-5.40); WHITE BLOOD COUNT 7.4 10^3/uL (4.0-10.0)
[2020-03-09] MEDS: hydrALAZINE 20MG/ML 1ML VIAL (J0360 PER 20MG) IV SCH ×4 (05:14→17:59)
[2020-03-09] MEDS: SLF 3 ML SYR IV SCH ×3 (05:14→21:31)
[2020-03-09 05:36] LABS: ALBUMIN 3.1 GM/DL (3.2-5.2); BILIRUBIN,TOTAL 0.7 MG/DL (0.2-1.0); CALCIUM LEVEL 8.5 MG/DL (8.8-10.2); CREATININE FOR GFR 1.15 MG/DL (0.55-1.30); MAGNESIUM LEVEL 2.1 MG/DL (1.8-2.4); POTASSIUM SERUM 3.9 MEQ/L (3.5-5.1); TOTAL PROTEIN 5.9 GM/DL (6.4-8.2)
[2020-03-09] MEDS ORDERED: lisinopriL 5 MG TAB PO SCH (09:00)
[2020-03-09] MEDS: ENOXAPARIN 40MG/0.4ML SYRINGE (J1650 PER 10MG) SC SCH (09:15)
[2020-03-09] MEDS: CLOPIDOGREL 75 MG TAB PO SCH (09:15)
[2020-03-09] MEDS: DOCUSATE SODIUM 100 MG CAP PO SCH ×2 (09:15→20:57)
[2020-03-09] MEDS: ASPIRIN 81 MG CHEW TABLET PO SCH (09:15)
--- NOTE | 2020-03-09 12:04 | ECGEPIP ---
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
--- NOTE | 2020-03-09 12:11 | IPNPDOC ---
Date Seen The patient was seen on 03/09/20. Progress Note SUBJECTIVE: Patient was seen and examined at bedside this morning. Patient denies new onset vision changes or subjective focal weakness or numbness. She is agreeable to rehab this morning, which I will work on with PFS on 03/10/20. She denies chest pain, shortness of breath, palpitations, n/v/d. OBJECTIVE PHYSICAL EXAMINATION: VITAL SIGNS: Please see below. General: NAD, comfortable HEENT: PERRLA, EOMI, sclerae clear. R facial droop. Neck: supple, normal ROM, no JVD Respiratory: lungs CTAB, no wheeze, no rales, no crackles CVS: RRR, normal S1, S2, no murmurs Abdo: soft, no masses, no hepatosplenomegaly, BS+, no rebound tenderness Extremities: no edema, pulses 2+ MSK: no joint deformities, normal ROM Neuro: stable exam. RUE pronator drift. Noted improvement in R hemiplegia. 4+/5 strength in the right upper extremity. 4+/5 strength in the right lower extremity. No loss of visual funes. 5 out of 5 strength in the left upper extremity and the left lower extremity. Cerebellar examination positive for past-pointing. Horizontal nystagmus. Unsteady gait, sway to right. Psych: calm, cooperative, AAO x 3 LABORATORY DATA, IMAGING STUDIES, MICROBIOLOGY: Please see below. Echocardiogram: Performed. Discussed with Dr. Garza on 03/06/2020., Mild mitral stenosis. Enlarged left atrium. Concern for possible underlying A. fib. However, none seen on telemetry for the past 48 hours DVT prophylaxis ordered?: Y, lovenox ASSESSMENT AND PLAN: 69 yo F with a history of HTN, CVA, [place] (s/p stenting), GERD, presenting to [facility] with R facial droop, R hemiplegia and dysarthria. CT imaging at outside hospital showed R cortical atrophy, without hemorrhage, edema or midline shift. MRI at [facility] showing large (3-4 cm) L hemisphere cerebellar ischemic infarct extending to the pontine-midbrain junction. MRA showing R IC occlusion, L IC stenosis. Neurology and vascualar surgery consulted. Pending repeat CT brain to evaluate for edema/shift given size of ischemic infarct. Physical therapy recommending acute inpatient rehabilitation, which the patient has declined. Patient asking to be transferred to subacute rehabilitation closer to her place of residence at [place]. # L cerebellar CVA: - MRI showing acute/subacute L cerebellar CVA. Last known normal > 24 hours. tPA was not administered at outside hospital. MRA showing R carotid occlusion. L internal carotid stenosis 50-69% with increased velocities. - Discussed with Dr. Crow Reviewed MRI. Patient has a large 3-4 cm left cerebellar hemisphere stroke extending into the pontine midbrain junction. Given 300 mg ASA SD. Check 2D echo. Check lipid panel. PT/OT. [employer] eval for dysphagia/aphasia. - s/p Flex endoscopic laryngoscopy. Rec outpatient ST[facility] outpatient ENT eval, to assess function of larynx and vocal fols as suspiciops for disrupted resp coordination and vocal fold movement. Lvl 3 mech soft diet with thin liqs. - . Discussed echo findings, i.e., enlarged left atrium and mitral stenosis, with Dr. Garza. Possible underlying atrial fibrillation. No A. fib noted on telemetry for the past 48 hours. Will recommend follow-up with cardiology as an outpatient for prolonged cardiac rhythm monitoring. - asa/plavix with lipitor 80 mg qhs. - CT head 03/06/20 showing stable mild local mass effect without midline shift - CT head 03/07/20 showing stable local mass effect without midline shift - ARU consult placed, patient is a good candidate, however, refusing inpatient rehabilitation at [facility] wishes to go to [place] close to her residence #R internal carotid artery occlusion: - d/w Dr. Gonzales, no further operative management #L internal carotid stenosis - 50-69%, consulted vascular surgery - elevated velocities in L IC, likely secondary to occlusion in R IC. - minimal plaque in L ICA and common carotid artery bulb - no surgical intervention on the L ICA at this time - no surgical intervention on the R ICA due to occlusion - f/u in 6 mo in vascular surgery clinic for a repeat carotid duplex. #First degree AV block with bradycardia: SD interval 200 ms, asymptomatic. DC beta sofi. #HTN: labetalol 10 mg IV prn for SBP > 180 mmHg. HR normalized. DC bb. Start amlodipine, lisinopril for BP control. #CAD: c/w asa/statin. EKG at OSH showing q wave in lead III, c/w prior infarct. ACEi. DC BB due to bradycardia/1st deg AV block #HDL: atorvastatin 80 mg qhs. Dispo: Ongoing physical therapy. Recommending acute rehabilitation, patient has declined. Patient has expressed wishes to go home several times. At this time, this would be unsafe, which I have discussed with her and her family. Family agrees for rehab. Patient agrees at this time. Will work with PFS for subacute rehab near to patient residence. VS, I&O, 24H, Fishbone Vital Signs/I&O Vital Signs Date Time Temp Pulse Resp B/P (MAP) Pulse Ox O2 Delivery O2 Flow Rate FiO2 03/09/20 11:52 172/88 03/09/20 11:46 98.1 70 18 92 Room Air 03/06/20 04:00 2.0 I&O- Last 24 Hours up to 6 AM 03/09/20 06:00 Intake Total 1200 ml Output Total 250 ml Balance 950 ml Laboratory Data 24H LABS Laboratory Tests 2 03/09/20 04:52: Immature Granulocyte % (Auto) 0.1, Neutrophils (%) (Auto) 63.5, Lymphocytes (%) (Auto) 22.1L, Monocytes (%) (Auto) 9.4H, Eosinophils (%) (Auto) 4.4H, Basophils (%) (Auto) 0.5, Neutrophils # (Auto) 4.7, Lymphocytes # (Auto) 1.6, Monocytes # (Auto) 0.7, Eosinophils # (Auto) 0.3, Basophils # (Auto) 0.0, Nucleated Red Blood Cells % (auto) 0.0, Anion Gap 7L, Glomerular Filtration Rate 50.0, Calcium Level 8.5L, Magnesium Level 2.1, Total Bilirubin 0.7, Aspartate Amino Transf (AST/SGOT) 24, Alanine Aminotransferase (ALT/SGPT) 18, Alkaline Phosphatase 87, Total Protein 5.9L, Albumin 3.1L, Albumin/Globulin Ratio 1.1L CBC/BMP Laboratory Tests 03/09/20 04:52 DADA PAUL MD Mar 09, 2020 12:10
[2020-03-09] MEDS ORDERED: amLODIPine 5 MG TAB PO ONE (12:15)
--- NOTE | 2020-03-09 17:00 | ECHO ---
DATE OF PROCEDURE: 03/06/2020 Height: 157 cm Weight: 76 kg REFERRING PHYSICIAN: Dr. Gomez INDICATION: Cerebrovascular accident. MEASUREMENTS: IVS 1.3 LV 4.0 LVPW 1.1 LA 3.7 Aorta 2.7 IVC 1.7 Mitral E wave velocity 102, A wave 111. E prime septal 4.7 E prime lateral 4.6 FINDINGS: This study is of rather limited technical quality with difficult visualization. The patient is in sinus rhythm with frequent supraventricular ectopy. Left ventricle is normal size and overall normal systolic function, estimated left ventricular ejection fraction (LVEF) approximately 70%. I cannot rule out subtle wall motion abnormalities. Right ventricle appears normal. Left atrium is at least moderately enlarged. Right atrium is normal size. Limited views of atrial septum appear intact. Aortic valve is sclerotic, but has normal mobility. There are very prominent degenerative abnormalities of mitral valve with prominent mitral annular calcification mostly at the base of the posterior mitral leaflet. There is at least mild restriction of leaflet mobility. Tricuspid valve appears normal. Pulmonic valve is poorly visualized, but grossly appears normal. No pericardial effusion is noted. Inferior vena cava is normal size and appropriately collapses with inspiration indicative of normal central venous pressure. Aortic root, aortic arch and visualized segment of abdominal aorta all appear grossly normal. Doppler interrogation of the aortic valve reveals no significant stenosis or insufficiency. There is trivial mitral stenosis with mean gradient 3 mmHg and no insufficiency of the valve. Tricuspid valve is functionally competent. Mitral inflow pattern and tissue Doppler imaging of mitral annulus reveal grade 1 diastolic dysfunction. Injection of agitated saline with and without Valsalva maneuver reveals no evidence for right to left or right to left shunt, but the opacification of the right-sided chamber was poor and this should not be considered completely reliable. CONCLUSIONS: 1. The study is of limited technical quality. The patient is in sinus rhythm. 2. Normal LV size with hyperdynamic LV systolic function and grade 1 diastolic dysfunction. 3. Aortic sclerosis, but no stenosis or insufficiency. 4. Degenerative abnormalities of mitral valve with no insufficiency and mild stenosis. 5. Normal central venous pressure. 6. Unable to estimate pulmonary artery pressure. 7. Negative, but poor quality bubble study. COMMENTS: No obvious explanation of cerebrovascular accident. [facility]
--- NOTE | 2020-03-09 17:06 | CR ---
DATE OF CONSULTATION: 03/06/2020 REQUESTING PHYSICIAN: Dr. Sinan Melgar REASON FOR CONSULTATION: Stroke. HISTORY OF PRESENT ILLNESS: Venessa Richard is a 69-year-old woman who had an ischemic stroke causing left hemiparesis. Patient was admitted at [facility]. History was obtained from patient, and her was present in the room. According to patient's , they were not pleased with care she received at [facility]. She was at her usual state of health until 03/04/2020 in evening around 6 p.m., when she developed severe headache associated with several profuse repeated vomiting episodes. Headache was in right frontal and temporal region. called their [id number], who is a nurse, who gave her a medicine for nausea, but it did not help. decided to put her in the truck, and they met emergency medical services (EMS) intermediate to [facility]. According to patient's , patient had difficulty walking and moving her right leg at home. When they reached [facility], she had difficulty speaking, and her words were not clear at all. In the emergency department, her blood pressure was systolic 215. CT scan of head show asymmetric atrophy, worse on right side, with global volume loss but no hemorrhage, mass effect. According to records from outside hospital, patient had difficulty speaking, had hoarse voice, and had difficulty holding food in her mouth, coughing and choking. According to patient's , they refused transfer to [facility] due to poor care she received during her last stroke, causing left hemiparesis. No tPA was given. Patient was transferred to [facility] 24 hours later. I received first call about her around 8 p.m. on 03/05/2020. This was 26 hours after onset of symptoms. I was told that MRI scan of brain showed large cerebellar stroke. The patient also had right- sided hemiparesis and right-sided facial droop. I reviewed the scans, and explained that there is a clear extension of ischemic stroke into left mid brain/carson junction into ventral surface effecting corticospinal tracts. I recommended aspirin 300 mg rectal until patient is able to swallow. Patient had swallow evaluation this morning and will have more tests tomorrow. She states that she was cleared to have pureed diet. She continues to have dysarthria. She has mild right-sided weakness and facial weakness. According to patient and her , they did not follow with any neurologist since her previous stroke. They were not aware of right internal carotid artery occlusion in past, and it was seen on her scans this time. DIAGNOSTIC STUDIES: MRI scan of brain and CT scans of head were reviewed and showed acute left cerebellar, mid brain/carson ischemic stroke without mass effect or edema. She had a repeat CT scan of head this morning, which showed stable findings. MRA brain and carotid ultrasound showed occlusion of right internal carotid artery with normal rest of the vasculature. MEDICAL HISTORY: 1. Hypertension. 2. Myocardial infarction/coronary artery disease, status post stent. 3. Stroke, causing left hemiparesis in past, for which patient was treated at [facility]. 4. Dyslipidemia. 5. Acid reflux. SOCIAL HISTORY: Patient smokes half pack per day. She denies any alcohol or illicit drug. FAMILY HISTORY: Unremarkable and noncontributory. REVIEW OF SYSTEMS: All systems were reviewed and found to be noncontributory except as mentioned in the history of present illness. HOME MEDICATIONS: - aspirin 81 mg, four tablets by mouth daily - Bystolic 20 mg by mouth daily - Patient's states that she has been taking Plavix 75 mg by mouth daily and has not missed doses. ALLERGIES: None. PHYSICAL EXAMINATION: Temperature 97.8, pulse 60, respiratory rate 18, blood pressure 143/73, 96% saturation on room air. HEART: Regular rate and rhythm. LUNGS: Clear to auscultation. ABDOMEN: Nondistended. No pedal edema. MUSCULOSKELETAL: No abnormalities. No mass. No signs of meningeal irritation. Patient is awake, alert, oriented to place, person, and time. She has significant dysarthria of her speech. Normal comprehension and repetition. Recent and distant memory is intact. Visual funes are full to confrontation. No nystagmus. Extraocular muscles are intact. No facial weakness on left side. She has right-sided upper motor neuron type facial weakness. Tingue midline. She has 4/5 right sided strength and 5/5 left side. Normal sensations. She has bilatreal dysmetria. Gait could not be tested. ASSESSMENT: 1. Left Carson/Midbrain and cerbellar CVA. 2. Old CVA causing hemiparesis. 3. Hypertension and Dyslipidemia. PLAN: 1. Repeat CT scan of head tomorrow and day after tomorrow to rule out edema and hydrocephalus. 2. Aspirin 300 mg per rectum until she is able to swallow. 3. Check fasting lipid profile. 4. Atorvastatin 40 mg by mouth daily. 5. No intervention can be done, for right internal carotid artery complete occlusion. Vascular surgery said the same. She has 50%-69% left internal carotic artery stenosis, for which she will require periodic ultrasounds for surveillance. 6. Physical and occupational therapy and rehabilitation. 7. Keep systolic blood pressure below 180 and diastolic blood pressure below 90. 8. Follow with our office within 2 weeks after hospital discharge. ROSINA
[2020-03-09] MEDS: hydroCHLOROthiazide 12.5 MG CAPSULE PO SCH (17:59)
[2020-03-09] MEDS: LOSARTAN 25 MG TAB PO SCH (17:59)
[2020-03-09] MEDS: ATORVASTATIN 20 MG TAB PO SCH (20:57)
[2020-03-09] MEDS: LABETALOL 100MG/20ML VIAL IV SCH (21:17)
[2020-03-10] VITALS (7 sets, daily range): BP systolic 147–180; BP diastolic 60–90
[2020-03-10 05:30] LABS: BASO % 0.4 % (0.0-1.0); EOS # 0.4 10^3/uL (0.0-0.5); EOS % 4.4 % (0.0-3.0); HEMATOCRIT 42.4 % (36.0-47.0); HEMOGLOBIN 13.9 g/dl (12.0-15.5); LYMPH % 24.7 % (24.0-44.0); MEAN CORPUSCULAR HEMOGLOBIN 29.8 pg (27.0-33.0); MEAN CORPUSCULAR HGB CONC 32.8 g/dl (32.0-36.5); MONO # 0.9 10^3/uL (0.0-0.8); MONO % 10.6 % (0.0-5.0); NEUTROPHILS # 4.9 10^3/uL (1.5-8.5); NEUTROPHILS % 59.4 % (36.0-66.0); PLATELET COUNT, AUTOMATED 230 10^3/uL (150-450); RED BLOOD COUNT 4.66 10^6/uL (4.00-5.40); WHITE BLOOD COUNT 8.2 10^3/uL (4.0-10.0)
[2020-03-10 05:52] LABS: ALBUMIN 3.3 GM/DL (3.2-5.2); BILIRUBIN,TOTAL 0.7 MG/DL (0.2-1.0); CALCIUM LEVEL 8.8 MG/DL (8.8-10.2); CREATININE FOR GFR 1.19 MG/DL (0.55-1.30); MAGNESIUM LEVEL 2.2 MG/DL (1.8-2.4); POTASSIUM SERUM 4.2 MEQ/L (3.5-5.1); TOTAL PROTEIN 6.5 GM/DL (6.4-8.2)
[2020-03-10] MEDS: hydrALAZINE 20MG/ML 1ML VIAL (J0360 PER 20MG) IV SCH ×4 (06:12→17:57)
[2020-03-10] MEDS: SLF 3 ML SYR IV SCH ×2 (06:12→14:00)
[2020-03-10] MEDS ORDERED: hydroCHLOROthiazide 25 MG TAB PO SCH (09:00)
[2020-03-10] MEDS: ASPIRIN 81 MG CHEW TABLET PO SCH (09:02)
[2020-03-10] MEDS: LOSARTAN 25 MG TAB PO SCH (09:02)
[2020-03-10] MEDS: ENOXAPARIN 40MG/0.4ML SYRINGE (J1650 PER 10MG) SC SCH (09:02)
[2020-03-10] MEDS: hydroCHLOROthiazide 12.5 MG CAPSULE PO SCH (09:03)
[2020-03-10] MEDS: DOCUSATE SODIUM 100 MG CAP PO SCH (09:03)
[2020-03-10] MEDS: CLOPIDOGREL 75 MG TAB PO SCH (09:03)
--- NOTE | 2020-03-10 13:36 | IPNPDOC ---
Date Seen The patient was seen on 03/10/20. Progress Note SUBJECTIVE: Patient was seen and examined at bedside this morning. Patient denies new onset vision changes or subjective focal weakness or numbness. She denies chest pain, shortness of breath, palpitations, n/v/d. OBJECTIVE PHYSICAL EXAMINATION: VITAL SIGNS: Please see below. General: NAD, comfortable HEENT: PERRLA, EOMI, sclerae clear. R facial droop. Neck: supple, normal ROM, no JVD Respiratory: lungs CTAB, no wheeze, no rales, no crackles CVS: RRR, normal S1, S2, no murmurs Abdo: soft, no masses, no hepatosplenomegaly, BS+, no rebound tenderness Extremities: no edema, pulses 2+ MSK: no joint deformities, normal ROM Neuro: stable exam. RUE pronator drift. Noted improvement in R hemiplegia. 4+/5 strength in the right upper extremity. 4+/5 strength in the right lower extremity. No loss of visual funes. 5 out of 5 strength in the left upper extremity and the left lower extremity. Cerebellar examination positive for past-pointing. Horizontal nystagmus. Unsteady gait, sway to right. Psych: calm, cooperative, AAO x 3 LABORATORY DATA, IMAGING STUDIES, MICROBIOLOGY: Please see below. Echocardiogram: Performed. Discussed with Dr. Garza on 03/06/2020., Mild mitral stenosis. Enlarged left atrium. Concern for possible underlying A. fib. However, none seen on telemetry for the past 48 hours DVT prophylaxis ordered?: Y, lovenox ASSESSMENT AND PLAN: 69 yo F with a history of HTN, CVA, [place] (s/p stenting), GERD, presenting to [facility] with R facial droop, R hemiplegia and dysarthria. CT imaging at outside hospital showed R cortical atrophy, without hemorrhage, edema or midline shift. MRI at [facility] showing large (3-4 cm) L hemisphere cerebellar ischemic infarct extending to the pontine-midbrain junction. MRA showing R IC occlusion, L IC stenosis. Neurology and vascualar surgery consulted. Pending repeat CT brain to evaluate for edema/shift given size of ischemic infarct. Physical therapy recommending acute inpatient rehabilitation, which the patient has declined. Patient asking to be transferred to subacute rehabilitation closer to her place of residence at [place]. # L cerebellar CVA: - MRI showing acute/subacute L cerebellar CVA. Last known normal > 24 hours. tPA was not administered at outside hospital. MRA showing R carotid occlusion. L internal carotid stenosis 50-69% with increased velocities. - Discussed with Dr. Crow Reviewed MRI. Patient has a large 3-4 cm left cerebellar hemisphere stroke extending into the pontine midbrain junction. Given 300 mg ASA GA. Check 2D echo. LDL 125. HDL 40. PT/OT. [employer] REPRESENTATIVE eval for dysphagia/aphasia. - s/p Flex endoscopic laryngoscopy. Rec outpatient . [facility] outpatient ENT eval, to assess function of larynx and vocal fols as suspicious for disrupted resp coordination and vocal fold movement. Lvl 3 mech soft diet with thin liqs. - . Discussed echo findings, i.e., enlarged left atrium and mitral stenosis, with Dr. Garza. Possible underlying atrial fibrillation. No A. fib noted on telemetry. Will recommend follow-up with cardiology as an outpatient for prolonged cardiac rhythm monitoring. - asa/plavix with lipitor 80 mg qhs. - CT head 03/06/20 showing stable mild local mass effect without midline shift - CT head 03/07/20 showing stable local mass effect without midline shift - ARU consult placed, patient is a good candidate, pending family and patient decision at this time. #R internal carotid artery occlusion: - d/w Dr. Gonzales, no further operative management #L internal carotid stenosis - 50-69%, consulted vascular surgery - elevated velocities in L IC, likely secondary to occlusion in R IC. - minimal plaque in L ICA and common carotid artery bulb - no surgical intervention on the L ICA at this time - no surgical intervention on the R ICA due to occlusion - f/u in 6 mo in vascular surgery clinic for a repeat carotid duplex. #First degree AV block with bradycardia: HR 68. GA interval 200 ms, a symptomatic. DC beta sofi. #HTN: labetalol 10 mg IV prn for SBP > 180 mmHg. HR normalized. DC bb. Start amlodipine, lisinopril for BP control. #CAD: c/w asa/statin. EKG at OSH showing q wave in lead III, c/w prior infarct. ACEi. DC BB due to bradycardia/1st deg AV block #HDL: atorvastatin 80 mg qhs. Dispo: Ongoing physical therapy. Discussed with patient's son Carlos this morning at phone #[phone], the family would like patient to receive rehab at [facility]. Planned family meeting this afternoon. Dr. Guzmán aware. VS, I&O, 24H, Jose David Vital Signs/I&O Vital Signs Date Time Temp Pulse Resp B/P (MAP) Pulse Ox O2 Delivery O2 Flow Rate FiO2 03/10/20 12:00 98.6 68 20 147/90 (109) 94 Room Air 03/06/20 04:00 2.0 I&O- Last 24 Hours up to 6 AM 03/10/20 06:00 Intake Total 1020 ml Output Total 625 ml Balance 395 ml Laboratory Data 24H LABS Laboratory Tests 2 03/10/20 04:45: Immature Granulocyte % (Auto) 0.5, Neutrophils (%) (Auto) 59.4, Lymphocytes (%) (Auto) 24.7, Monocytes (%) (Auto) 10.6H, Eosinophils (%) (Auto) 4.4H, Basophils (%) (Auto) 0.4, Neutrophils # (Auto) 4.9, Lymphocytes # (Auto) 2.0, Monocytes # (Auto) 0.9H, Eosinophils # (Auto) 0.4, Basophils # (Auto) 0.0, Nucleated Red Blood Cells % (auto) 0.0, Anion Gap 7L, Glomerular Filtration Rate 48.0, Calcium Level 8.8, Magnesium Level 2.2, Total Bilirubin 0.7, Aspartate Amino Transf (AST/SGOT) 29, Alanine Aminotransferase (ALT/SGPT) 25, Alkaline Phosphatase 100, Total Protein 6.5, Albumin 3.3, Albumin/Globulin Ratio 1.0L CBC/BMP Laboratory Tests 03/10/20 04:45 DADA PAUL MD Mar 10, 2020 13:36
--- NOTE | 2020-03-10 14:38 | DS.PDOC ---
Discharge Summary General Date of Admission Mar 05, 2020 at 16:13 Date of Discharge 03/10/20 Attending Physician: DADA PAUL MD Discharge Summary PROCEDURES PERFORMED DURING STAY: [None]. 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 HISTORY OF PRESENT ILLNESS: 69yo F with a hx of L sided CVA (4 years ago, with no residual deficits), VT (10 years ago, s/p stenting), HTN, GERD, HLD, was transfered from [facility]. She presented there on 03/04/20 after she developed severe R sided temporal headache and nasal pain which was accompanied by profuse and repeated vomiting. On examination in the ER, she was noted to have R sided facial droop, as well as drift to upper extremities. Pateint was noted to in hypertensive urgency in ED with SBP [address] head showed asymmetric atrophy worse on R, global volume loss with no hemorrhage, shift, or mass-effect. Per OSH notes, patient having difficulty speaking, had hoarse voice, and was unable to hold food in mouth as well as coughing/choking. Patient was transferred to [facility] for further CVA workup, as OSH facility did not have MRI capabilities, and no SPINNING MACHINE OPERATOR service. On arrival to [facility], patient was hypertensive SBP 180s. MRI brain wo contrast was ordered on arrival. Spoke to radiologist, patient has a L sided ischemic cerebe llar infarct, along with R carotid artery stenosis. HOSPITAL COURSE: 69 yo F with a history of HTN, CVA, VT (s/p stenting), GERD, presenting to [facility] with R facial droop, R hemiplegia and dysarthria. CT imaging at outside hospital showed R cortical atrophy, without hemorrhage, edema or midline shift. MRI at [facility] showing large (3-4 cm) L hemisphere cerebellar ischemic infarct extending to the pontine-midbrain junction. MRA showing R IC occlusion, L IC stenosis. Neurology and vascualar surgery consulted. Pending repeat CT brain to evaluate for edema/shift given size of ischemic infarct. Physical therapy recommending acute inpatient rehabilitation, which the patient has declined. Patient asking to be transferred to subacute rehabilitation closer to her place of residence at [place]. # L cerebellar CVA: - MRI showing acute/subacute L cerebellar CVA. Last known normal > 24 hours. tPA was not administered at outside hospital. MRA showing R carotid occlusion. L internal carotid stenosis 50-69% with increased velocities. - Discussed with Dr. Crow Reviewed MRI. Patient has a large 3-4 cm left cerebellar hemisphere stroke extending into the pontine midbrain junction. Given 300 mg ASA OK. Check 2D echo. LDL 125. HDL 40. PT/OT. SPINNING MACHINE OPERATOR eval for dysphagia/aphasia. - s/p Flex endoscopic laryngoscopy. Rec outpatient ST. Rec outpatient ENT eval, to assess function of larynx and vocal fols as suspicious for disrupted resp coordination and vocal fold movement. Lvl 3 mech soft diet with thin liqs. - . Discussed echo findings, i.e., enlarged left atrium and mitral stenosis, with Dr. Garza. Possible underlying atrial fibrillation. No A. fib noted on telemetry. Will recommend follow-up with cardiology as an outpatient for prolonged cardiac rhythm monitoring. - asa/plavix with lipitor 80 mg qhs. - CT head 03/06/20 showing stable mild local mass effect without midline shift - CT head 03/07/20 showing stable local mass effect without midline shift - ARU consult placed, patient accepted for acute rehab. #R internal carotid artery occlusion: - d/w Dr. Gonzales, no further operative management #L internal carotid stenosis - 50-69%, consulted vascular surgery - elevated velocities in L IC, likely secondary to occlusion in R IC. - minimal plaque in L ICA and common carotid artery bulb - no surgical intervention on the L ICA at this time - no surgical intervention on the R ICA due to occlusion - f/u in 6 mo in vascular surgery clinic for a repeat carotid duplex. #First degree AV block with bradycardia: HR 68. OK interval 200 ms, asymptomatic. DC beta sofi. #HTN: labetalol 10 mg IV prn for SBP > 180 mmHg. HR normalized. DC bb. Start amlodipine, lisinopril for BP control. #CAD: c/w asa/statin. EKG at OSH showing q wave in lead III, c/w prior infarct. ACEi. DC BB due to bradycardia/1st deg AV block #HDL: atorvastatin 80 mg qhs. Dispo: Ongoing physical therapy. Discussed with patient's son Carlos this morning at phone #[phone], the family would like patient to receive rehab at [facility]. Following family meeting, patient agreed for ARU. DISCHARGE MEDICATIONS: Please see below. ALLERGIES: Please see below. PHYSICAL EXAMINATION ON DISCHARGE: VITAL SIGNS: Please see below. General: NAD, comfortable HEENT: PERRLA, EOMI, sclerae clear. R facial droop. Neck: supple, normal ROM, no JVD Respiratory: lungs CTAB, no wheeze, no rales, no crackles CVS: RRR, normal S1, S2, no murmurs Abdo: soft, no masses, no hepatosplenomegaly, BS+, no rebound tenderness Extremities: no edema, pulses 2+ MSK: no joint deformities, normal ROM Neuro: stable exam. RUE pronator drift. Noted improvement in R hemiplegia. 4+/5 strength in the right upper extremity. 4+/5 strength in the right lower extremity. No loss of visual funes. 5 out of 5 strength in the left upper extremity and the left lower extremity. Cerebellar examination positive for past-pointing. Horizontal nystagmus. Unsteady gait, sway to right. Psych: calm, cooperative, AAO x 3 LABORATORY DATA: Please see below. IMAGING: MRI brain wo contrast (03/10/20): FINDINGS: Brain: Large focus of acute ischemia demonstrated on diffusion weighted and ADC map images in the left cerebellar hemisphere which is T1 dark and T2 bright suggesting and acute to subacute infarct. Multiple foci of T2 lengthening are demonstrated in the subcortical, periventricular and centrum semiovale white matter consistent with age-related small vessel gliosis. There is mild parenchymal atrophy. Cerebral ventricles: Normal. No ventriculomegaly. Bones/joints: Unremarkable. Paranasal sinuses: Normal as visualized. No acute sinusitis. Mastoid air cells: Normal as visualized. No mastoid effusion. Orbits: Unremarkable. Soft tissues: Unremarkable. IMPRESSION: 1. Large focus of acute ischemia demonstrated on diffusion weighted and ADC map images in the left cerebellar hemisphere which is T1 dark and T2 bright suggesting and acute to subacute infarct. 2. Multiple foci of T2 lengthening are demonstrated in the subcortical, periventricular and centrum semiovale white matter consistent with age-related small vessel gliosis. MRA without contrast (03/05/20): FINDINGS: ANTERIOR CIRCULATION: Right internal carotid artery: Occluded right carotid artery. Right middle cerebral artery: No occlusion or significant stenosis. No aneurysm. Right anterior cerebral artery: No occlusion or significant stenosis. No aneurysm. Left internal carotid artery: Atherosclerotic changes in the left cavernous carotid artery. Left middle cerebral artery: No occlusion or significant stenosis. No aneurysm. Left anterior cerebral artery: No occlusion or significant stenosis. No aneurysm. POSTERIOR CIRCULATION: Right vertebral artery: No occlusion or significant stenosis. No aneurysm. Left vertebral artery: No occlusion or significant stenosis. No aneurysm. Basilar artery: No occlusion or significant stenosis. No aneurysm. Right posterior cerebral artery: Right posterior cerebral artery fills via the posterior communicating and basilar arteries. Left posterior cerebral artery: No occlusion or significant stenosis. No aneurysm. IMPRESSION: Occluded right carotid artery. US Duplex Carotids bilateral (03/05/20): FINDINGS: Right common carotid artery: Mild atherosclerosis in intimal thickening. No occlusion or significant stenosis. Waveforms are normal. Right internal carotid artery: Occluded. Right ICA/CCA ratio: Within normal limits. Right external carotid artery: No stenosis in the origin. Right vertebral artery: Atherosclerotic narrowing at the origin. Otherwise unremarkable. Antegrade flow. Left common carotid artery: Diffuse intimal thickening. No occlusion or significant stenosis. Waveforms are normal. Left internal carotid artery: Moderate atherosclerosis. Elevated peak systolic velocity 235 cm/s. Unremarkable. No occlusion or stenosis. Spectral broadening demonstrated in the waveform. Left ICA/CCA ratio: Within normal limits. Left external carotid artery: No stenosis in the origin. Left vertebral artery: Atherosclerotic narrowing at the origin. Otherwise unremarkable. Antegrade flow. Thyroid: Large calcified thyroid nodule on the right measures 3.2 x 1.4 x 1.5 cm. IMPRESSION: 1. Occluded right carotid artery. 2. Moderate atherosclerotic changes with elevated velocities in the proximal left internal carotid artery consistent with a 50-69% or moderate stenosis. 3. Antegrade flow in the vertebral arteries. 4. Large calcified right thyroid nodule. CT head wo contrast (03/06/20): FINDINGS: Brain: Examination reveals stable appearance of large acute hypodense infarction involving the superior left cerebellar hemisphere and extending into the adjacent carson and midbrain with stable mild mass effect but without significant midline shift. No acute hemorrhage, mass or midline shift is seen. There is mild ill-defined patchy hypodensity within the bilateral cerebral periventricular white matter, consistent with chronic microvascular ischemic changes. There is mild diffuse cerebral atrophy present, consistent with this patient's age. Cerebral ventricles: The ventricular system demonstrates mild diffuse compensatory enlargement. Bones/joints: Unremarkable. No acute fracture. Paranasal sinuses: Visualized sinuses are unremarkable. No fluid levels. Mastoid air cells: Visualized mastoid air cells are well aerated. Vasculature: There is atherosclerotic calcification of the bilateral cavernous carotid arteries. There is moderate dolichoectasia and atherosclerotic calcification of the vertebrobasilar system. Soft tissues: Unremarkable. IMPRESSION: Examination reveals stable appearance of large acute hypodense infarction involving the superior left cerebellar hemisphere and extending into the adjacent carson and midbrain with stable mild mass effect but without significant midline shift. No acute hemorrhage, mass or midline shift is seen. CT head wo contrast (03/07/20): FINDINGS: Brain: Generalized parenchymal atrophy and evidence of microvascular ischemic disease involving periventricular subcortical white matter bilaterally. Evolving left cerebellar infarct significantly changed from previous exam. Local mass effect without midline shift. No intracranial hemorrhage. Cerebral ventricles: No ventriculomegaly. Bones/joints: Unremarkable. No acute fracture. Paranasal sinuses: Visualized sinuses are unremarkable. No fluid levels. Mastoid air cells: Visualized mastoid air cells are well aerated. Soft tissues: Unremarkable. IMPRESSION: No significant interval change. PROGNOSIS: good ACTIVITY: [As tolerated]. DIET: level 1/pureed, honey thick liquids, meds crushed in puree assist. DISCHARGE PLAN: ARU, specialist and PCP f/u DISPOSITION: ARU DISCHARGE INSTRUCTIONS: 1. Please follow-up with PCP in 3-5 days. 2. Please follow up with neurology in 2-4 weeks. 3. Need referral to ENT for possible vocal cord dysfunction in 1-2 weeks 4. Need referral/f/u with Cardiology for prolonged cardiac rhythm monitoring to ensure lack of atrial fibrilation 5. Please take your medications as prescribed. 6. If you develop fevers, chills, n/v/d, falls, chest pain, palpitations or otherwise worsening of your symptoms, please call 911 or return to the emergency department. ITEMS TO FOLLOWUP ON ON OUTPATIENT: 1. neurology follow up 2. ENT follow up for vocal cord function 3. cardio for holter/rhythm monitoring DISCHARGE CONDITION: [Stable]. TIME SPENT ON DISCHARGE: Greater than 30 minutes. Vital Signs/I&Os Vital Signs Date Time Temp Pulse Resp B/P (MAP) Pulse Ox O2 Delivery O2 Flow Rate FiO2 03/10/20 12:00 98.6 68 20 147/90 (109) 94 Room Air 03/06/20 04:00 2.0 I&O- Last 24 Hours up to 6 AM 03/10/20 05:59 Intake Total 1020 ml Output Total 625 ml Balance 395 ml Laboratory Data Labs 24H Laboratory Tests 2 03/10/20 04:45: Immature Granulocyte % (Auto) 0.5, Neutrophils (%) (Auto) 59.4, Lymphocytes (%) (Auto) 24.7, Monocytes (%) (Auto) 10.6H, Eosinophils (%) (Auto) 4.4H, Basophils (%) (Auto) 0.4, Neutrophils # (Auto) 4.9, Lymphocytes # (Auto) 2.0, Monocytes # (Auto) 0.9H, Eosinophils # (Auto) 0.4, Basophils # (Auto) 0.0, Nucleated Red Blood Cells % (auto) 0.0, Anion Gap 7L, Glomerular Filtration Rate 48.0, Calcium Level 8.8, Magnesium Level 2.2, Total Bilirubin 0.7, Aspartate Amino Transf (AST/SGOT) 29, Alanine Aminotransferase (ALT/SGPT) 25, Alkaline Phosphatase 100, Total Protein 6.5, Albumin 3.3, Albumin/Globulin Ratio 1.0L CBC/BMP Laboratory Tests 03/10/20 04:45 Discharge Medications Scheduled Aspirin (Children's Aspirin) 81 Mg Tab.chew, 81 MG PO DAILY Atorvastatin Calcium (Atorvastatin Calcium) 80 Mg Tablet, 80 MG PO QHS Clopidogrel Bisulfate (Clopidogrel) 75 Mg Tablet, 75 MG PO DAILY Docusate Sodium (Docusate Sodium) 100 Mg Capsule, 100 MG PO BID Hydrochlorothiazide (Hydrochlorothiazide) 12.5 Mg Capsule, 12.5 MG PO DAILY Losartan Potassium (Cozaar) 25 Mg Tablet, 25 MG PO DAILY Scheduled PRN Acetaminophen (Acetaminophen) 325 Mg Tablet, 650 MG PO Q4H PRN for PAIN OR FEVER Aluminum/Magnesium/Simeth (Mag-Al Plus Suspension) 30 Ml Oral.susp, 30 ML PO DAILY PRN for DYSPEPSIA Allergies Coded Allergies: No Known Allergies (Verified Allergy, Unknown, 03/05/20) DADA PAUL MD Mar 10, 2020 14:37
[2020-03-10] MEDS ORDERED: ACET1TAB55 PO (14:55)
[2020-03-10] MEDS ORDERED: CLOP75TA2 PO (14:55)
[2020-03-10] MEDS ORDERED: HYDR12CA PO (14:55)
[2020-03-10] MEDS ORDERED: MYLASSUD PO (14:55)
[2020-03-10] MEDS ORDERED: DOCU100C16 PO (14:55)
[2020-03-10] MEDS ORDERED: ASPI81CH8 PO (14:55)
[2020-03-10] MEDS ORDERED: COZA1TAB PO (14:55)
[2020-03-10] MEDS ORDERED: ATOR80TA59 PO (14:55)
== END 2020-03-10 18:23 | DRG 65 ==
LOC: EDBD → M PCU 16:13
PROVIDERS: ADMIT Family Medicine; ATTEND Family Medicine
DX: I63.442 Cerebral infarction due to embolism of left cerebellar artery (principal); G81.91 Hemiplegia, unspecified affecting right dominant side; I25.2 Old myocardial infarction; K21.9 Gastro-esophageal reflux disease without esophagitis; E78.5 Hyperlipidemia, unspecified; I44.0 Atrioventricular block, first degree; F17.200 Nicotine dependence, unspecified, uncomplicated; R47.81 Slurred speech; R26.81 Unsteadiness on feet; R29.810 Facial weakness; R47.1 Dysarthria and anarthria; R13.10 Dysphagia, unspecified; I65.23 Occlusion and stenosis of bilateral carotid arteries; Z79.82 Long term (current) use of aspirin; Z95.5 Presence of coronary angioplasty implant and graft; Z79.899 Other long term (current) drug therapy

== ENCOUNTER 2020-03-07 10:30 | Inpatient (IN) | payer MEDICARE, BC ==
[~2020-03-07] VITALS: Ht 157.5 cm; Wt 77.9 kg
[~2020-03-07 10:30] MED LIST: ASPI81CH48 PO; BYST20TA2 PO
[2020-03-10] MEDS ORDERED: ACET1TAB55 PO (14:55)
[2020-03-10] MEDS ORDERED: HYDR12CA PO (14:55)
[2020-03-10] MEDS ORDERED: ASPI81CH8 PO (14:55)
[2020-03-10] MEDS ORDERED: COZA1TAB PO (14:55)
[2020-03-10] MEDS ORDERED: CLOP75TA2 PO (14:55)
[2020-03-10] MEDS ORDERED: ATOR80TA59 PO (14:55)
[2020-03-10] MEDS ORDERED: MYLASSUD PO (14:55)
[2020-03-10] MEDS ORDERED: DOCU100C16 PO (14:55)
--- NOTE | 2020-03-10 17:29 | HPEPDOC ---
Radiology Technician Note DATE OF ADMISSION: 03-10-20 DATE OF SERVICE: 03-10-20 TIME OF ADMISSION: Please refer to physician's admission order. SOURCE OF ADMISSION INFORMATION: [facility] record and patient CHIEF COMPLAINT: stroke HISTORY OF PRESENT ILLNESS: 69F pmh left sided CVA without residual deficits, NH s/p stenting, HTN, HLD who developed right sided headache, vomiting, and right sided facial droop presenting to [facility] on 03-04-20 where she was diagnosed likely stroke and transferred to [facility] for further work-up. MRI brain 03-05-20 showed, Large focus of acute ischemia demonstrated on diffusion weighted and ADC map images in the left cerebellar hemisphere which is T1 dark and T2 bright suggesting and acute to subacute infarct. MRA showed a right IC occlusion which was evaluated by vascular surgery who did not recommend surgical intervention, but to continue ASA and Plavix which was also recommended by neurology for stroke treatment. Patient was monitored on telemetry due to concerns for Afib, however none was identified, but her beta-sofi was discontinued due to 1st degree AV block with bradycardia. She was found to have considerable ADl and mobility impairments below her prior level of function and deemed medically appropriate for discharge to ARU on 03-10-20. REVIEW OF SYSTEMS: The following is a completed review of systems and has been reviewed. Review of systems otherwise unremarkable. PAIN: Patient self reports no pain EYES: No recent vision changes EARS, NOSE, & THROAT: No throat pain, +dysphagia CARDIOVASCULAR: Denies chest pain or palpitations PULMONARY: Denies shortness of breath, +cough GASTROINTESTINAL: Denies constipation/diarrhea GENITOURINARY: denies dysuria MUSCULOSKELETAL: right sided weakness NEUROLOGICAL:apraxia/dysmetria, right sided paresis HEMATOLOGICAL: denies easy bruising SKIN: denies rash PSYCHIATRIC: Unremarkable All other review of systems found to be negative. PAST MEDICAL HISTORY: as per hpi ALLERGIES: Please see below. MEDICATIONS: Please see below. SOCIAL HISTORY: +smoker, no etoh/illicit drugs DIET: level 3 and thins PHYSICAL EXAMINATION: VITAL SIGNS: Please see below. GENERAL: Pleasant and cooperative. No acute distress. HEENT: PERRL. Extraocular movements intact. Clear conjunctiva CARDIOVASCULAR: Regular rate and rhythm. No murmurs, rubs, or gallops LUNGS: scattered rhonchi ABDOMEN: Soft, nontender, nondistended. Positive bowel sounds. Normal active bowel sounds NEUROLOGICAL: Alert and oriented times three. Cranial nerves II through XII grossly intact. Sensation grossly intact with extinction to tough on right side +brisk patellar reflexes bilat +dysmetria L>R EXTREMITIES: 5\5 strength LUE, 4/5 RUE, 5\5 strength right lower extremity. /5 strength in left lower extremity. SKIN: intact LABORATORY DATA: Please see below. IMAGING:Imaging documentation personally reviewed by record FUNCTIONAL STATUS: Premorbid: Independent with all activities of daily life as well as mobility with occasional 4 RW use On Admission: Min assist for ambulation x 10 feet with RW, min-mod assist for functional transfers, GOALS: Mod-I ambulating household distances, dressing, toileting, bed mobility, supervision for bathing ASSESSMENT:69-year-old F with past medical history of NH s/p stent and CVA who presents status post right cerebellar and midbrain infarct PLAN: 1. Rehab- PT/OT advance gait and mobility, strengthen/stretch/maintain ROM all 4 limbs -PROGRAM TECHNICIAN for dysphagia and cognition 2. Neuro- hx of CVA with right cerebellar midbrain infarct with right carotid artery stenosis- c/u ASA/Plavix, statin for secondary stroke prevention, tight BP control -SSRI for motor recovery, meclizine and Zofran prn for possible vertigo/nausea/vomiting due to stroke -f/u vascular in 6 months for repeat carotid doppler 3. CArdiac- hx of NH s/p stenting, recent ECHO + for diastolic CHF, will order daily weights, on diuretics, will avoid fluid restriction for now while on dysphagia diet and monitor for fluid overload- medicine consulted to assist in overall management -1 st degree AVB with recent bradycardia, c/ut oa void beta-sofi -HTN c/u Cozaar/HCTZ, will add hydralazine with holding parameters for elevated BPs 4. resp- monitor for infection, encourage incentive spirometry -current smoker, will start duonebs and mucinex 5. GI ppx- protonix 6. DVT ppx- lovenox, teds 7. Pain- tylenol prn 8. Dispo- TBD POST ADMISSION PHYSICIAN EVALUATION: Medical and functional status: Description of medical status, medical assessment: As above. Rehabilitation diagnosis and current and prior cold morbid medical conditions as above. Risk of complications and plans to mitigate them as above. Description of functional status current status is as above. Prior status as above. Status compared to preadmission: There are no clinically significant differences between the patient's current status and the information described on the preadmission screening document. Treatment plan anticipated: Treatment plan is as described above. Required disciplines including physical therapy, occupational therapy, others as noted above. Intensity of services: 3 hours a day, 6 days a week. Special considerations: There are no specific special or safety considerations that would likely preclude immediate implementation of an intensive rehabilitation program or subsequently influence the plan of care. ATTESTATION: Considering all the information above, it is my best judgment that this patient requires intensive rehabilitation therapy as described above and an inpatient hospital environment due to the complexity of nursing, medical, and rehabilitation needs required by the patient. Furthermore, this patient can reasonably be expected to participate in an benefit from an inpatient rehabilitation stay with an interdisciplinary team approach to the delivery of rehabilitation care under the direction and supervision of rehabilitation physician. PROGNOSIS: good ESTIMATED LENGTH OF STAY:16-20 days. PROJECTED DISCHARGE DESTINATION: Home with family support and any durable medical equipment required to increase functional safety and mobility. TIME SPENT COUNSELING AND COORDINATING INITIAL CARE: Greater than 70 minutes. Vital Signs Vital Signs Date Time Temp Pulse Resp B/P (MAP) Pulse Ox O2 Delivery O2 Flow Rate FiO2 03/10/20 18:30 97.2 63 20 139/79 (99) 94 Room Air Home Medications Scheduled Aspirin (Children's Aspirin) 81 Mg Tab.chew, 81 MG PO DAILY Atorvastatin Calcium (Atorvastatin Calcium) 80 Mg Tablet, 80 MG PO QHS Clopidogrel Bisulfate (Clopidogrel) 75 Mg Tablet, 75 MG PO DAILY Docusate Sodium (Docusate Sodium) 100 Mg Capsule, 100 MG PO BID Hydrochlorothiazide (Hydrochlorothiazide) 12.5 Mg Capsule, 12.5 MG PO DAILY Losartan Potassium (Cozaar) 25 Mg Tablet, 25 MG PO DAILY Scheduled PRN Acetaminophen (Acetaminophen) 325 Mg Tablet, 650 MG PO Q4H PRN for PAIN OR FEVER Aluminum/Magnesium/Simeth (Mag-Al Plus Suspension) 30 Ml Oral.susp, 30 ML PO DAILY PRN for DYSPEPSIA Allergies Coded Allergies: No Known Allergies (Verified Allergy, Unknown, 03/05/20) A-FIB/CHADSVASC A-FIB History Current/History of A-Fib/PAF?: No CHRISTINE ROMO MD Mar 10, 2020 17:28
[2020-03-10] MEDS ORDERED: ONDANSETRON 4 MG ORAL DISINTEGRATING TAB PO PRN (17:30)
[2020-03-10] MEDS ORDERED: MOM 30ML SUSPENSION UDC PO PRN (17:30)
[2020-03-10] MEDS ORDERED: BISACODYL 10 MG SUPP PR PRN (17:30)
[2020-03-10] MEDS ORDERED: MECLIZINE 12.5 MG TAB PO PRN (17:30)
[2020-03-10 18:30] VITALS: BP 139/79
[2020-03-10 20:00] VITALS: BP 150/78
[2020-03-10] MEDS: IPRATROPIUM 0.5MG/ALBUTEROL 2.5MG INH SOL UD 3ML (DUONEB) NEB SCH (20:00)
[2020-03-10] MEDS: REMEDY PHYTOPLEX Z-GUARD PASTE 113GM TUBE (FROM STOREROOM PRODUCT) TOP SCH (21:00)
[2020-03-10] MEDS: SENNA 8.6 MG TAB (SENOKOT) PO SCH (21:00)
[2020-03-10] MEDS: DOCUSATE SODIUM 100 MG CAP PO SCH (21:00)
[2020-03-10] MEDS: PANTOPRAZOLE 40MG TAB (PROTONIX) PO SCH (21:01)
[2020-03-10] MEDS: ATORVASTATIN 20 MG TAB PO SCH (21:01)
[2020-03-10] MEDS: guaiFENesin 200 MG TAB PO SCH (21:02)
[2020-03-10 23:17] VITALS: BP 146/84
[2020-03-10] MEDS: **hydrALAZINE HCL** 25 MG TAB PO SCH (23:20)
[2020-03-11] MEDS: **hydrALAZINE HCL** 25 MG TAB PO SCH ×3 (05:51→17:05)
[2020-03-11 06:02] VITALS: BP 152/80
[2020-03-11 06:33] LABS: BASO % 0.3 % (0.0-1.0); EOS # 0.4 10^3/uL (0.0-0.5); EOS % 4.9 % (0.0-3.0); HEMATOCRIT 43.4 % (36.0-47.0); HEMOGLOBIN 14.4 g/dl (12.0-15.5); LYMPH # 1.9 10^3/uL (1.5-5.0); LYMPH % 22.1 % (24.0-44.0); MEAN CORPUSCULAR HEMOGLOBIN 30.2 pg (27.0-33.0); MEAN CORPUSCULAR HGB CONC 33.2 g/dl (32.0-36.5); MONO # 0.8 10^3/uL (0.0-0.8); MONO % 9.2 % (0.0-5.0); NEUTROPHILS # 5.5 10^3/uL (1.5-8.5); NEUTROPHILS % 63.2 % (36.0-66.0); PLATELET COUNT, AUTOMATED 244 10^3/uL (150-450); RED BLOOD COUNT 4.77 10^6/uL (4.00-5.40); WHITE BLOOD COUNT 8.7 10^3/uL (4.0-10.0)
[2020-03-11 07:00] LABS: ALBUMIN 3.4 GM/DL (3.2-5.2); BILIRUBIN,TOTAL 0.9 MG/DL (0.2-1.0); CALCIUM LEVEL 9.1 MG/DL (8.8-10.2); CREATININE FOR GFR 0.99 MG/DL (0.55-1.30); GLOMERULAR FILTRATION RATE 59.4 (>45); POTASSIUM SERUM 4.3 MEQ/L (3.5-5.1); TOTAL PROTEIN 6.5 GM/DL (6.4-8.2)
[2020-03-11] MEDS: IPRATROPIUM 0.5MG/ALBUTEROL 2.5MG INH SOL UD 3ML (DUONEB) NEB SCH ×4 (07:29→19:40)
[2020-03-11] MEDS: CLOPIDOGREL 75 MG TAB PO SCH (08:16)
[2020-03-11] MEDS: ASPIRIN 81 MG ENTERIC TAB PO SCH (08:16)
[2020-03-11] MEDS: FLUoxetine 20 MG CAP PO SCH (08:16)
[2020-03-11] MEDS: PANTOPRAZOLE 40MG TAB (PROTONIX) PO SCH ×2 (08:16→20:33)
[2020-03-11] MEDS: DOCUSATE SODIUM 100 MG CAP PO SCH ×2 (08:17→20:26)
[2020-03-11] MEDS: ENOXAPARIN 40MG/0.4ML SYRINGE (J1650 PER 10MG) SC SCH (08:17)
[2020-03-11] MEDS: hydroCHLOROthiazide 12.5 MG CAPSULE PO SCH (08:17)
[2020-03-11] MEDS: guaiFENesin 200 MG TAB PO SCH ×3 (08:17→20:33)
[2020-03-11] MEDS: REMEDY PHYTOPLEX Z-GUARD PASTE 113GM TUBE (FROM STOREROOM PRODUCT) TOP SCH ×3 (08:18→20:26)
[2020-03-11] MEDS: LOSARTAN 25 MG TAB PO SCH (08:23)
[2020-03-11 12:22] VITALS: BP 128/78
--- NOTE | 2020-03-11 12:30 | IPNPDOC ---
PM&R Progress Note DATE OF SERVICE: Mar 11, 2020 Briar Cutter Progress Note Subjective: Patient reporting she feels well today, no difficulties swallowing since admission and that her cough has improved since last night with breathing treatments. REVIEW OF SYSTEMS: The following is a completed review of systems and has been reviewed. Review of systems otherwise unremarkable. PAIN: Patient self reports no pain EYES: No recent vision changes EARS, NOSE, & THROAT: No throat pain, +dysphagia CARDIOVASCULAR: Denies chest pain or palpitations PULMONARY: Denies shortness of breath, +cough (improving) GASTROINTESTINAL: Denies constipation/diarrhea GENITOURINARY: denies dysuria MUSCULOSKELETAL: right sided weakness NEUROLOGICAL:apraxia/dysmetria, right sided paresis HEMATOLOGICAL: denies easy bruising SKIN: denies rash PSYCHIATRIC: Unremarkable All other review of systems found to be negative. PHYSICAL EXAMINATION: VITAL SIGNS: Please see below. GENERAL: Pleasant and cooperative. No acute distress. HEENT: PERRL. Extraocular movements intact. Clear conjunctiva CARDIOVASCULAR: Regular rate and rhythm. No murmurs, rubs, or gallops LUNGS: scattered rhonchi ABDOMEN: Soft, nontender, nondistended. Positive bowel sounds. Normal active bowel sounds NEUROLOGICAL: Alert and oriented times three. Cranial nerves II through XII grossly intact. Sensation grossly intact with extinction to tough on right side +brisk patellar reflexes bilat +dysmetria L>R EXTREMITIES: 5\5 strength LUE, 4/5 RUE, 5\5 strength right lower extremity. /5 s trength in left lower extremity. SKIN: intact ASSESSMENT:69-year-old F with past medical history of PA s/p stent and CVA who presents status post right cerebellar and midbrain infarct PLAN: 1. Rehab- PT/OT advance gait and mobility, strengthen/stretch/maintain ROM all 4 limbs, ambulating with RW -SKATE MAKER for dysphagia and cognition 2. Neuro- hx of CVA with right cerebellar midbrain infarct with right carotid artery stenosis- c/u ASA/Plavix, statin for secondary stroke prevention, tight BP control -SSRI for motor recovery, meclizine and Zofran prn for possible vertigo/nausea/vomiting due to stroke -f/u vascular in 6 months for repeat carotid doppler 3. CArdiac- hx of PA s/p stenting, recent ECHO + for diastolic CHF, daily weights, on diuretics, will avoid fluid restriction for now while on dysphagia diet and monitor for fluid overload- medicine consulted to assist in overall management -1 st degree AVB with recent bradycardia, c/ut oa void beta-sofi -HTN c/u Cozaar/HCTZ, c/u hydralazine with holding parameters for elevated BPs 4. resp- monitor for infection, encourage incentive spirometry -current smoker, c/u duonebs and mucinex-cough today improving 5. GI ppx- protonix 6. DVT ppx- lovenox, teds 7. Pain- tylenol prn 8. Dispo- TBD Allergies Coded Allergies: No Known Allergies (Verified Allergy, Unknown, 03/05/20) Vital Signs Vital Signs Date Time Temp Pulse Resp B/P (MAP) Pulse Ox O2 Delivery O2 Flow Rate FiO2 03/11/20 12:22 128/78 (95) 03/11/20 06:02 97.9 76 19 94 Room Air Laboratory Data CBC/BMP Laboratory Tests 03/11/20 06:19 Labs 24H Laboratory Tests 2 03/11/20 06:19: Immature Granulocyte % (Auto) 0.3, Neutrophils (%) (Auto) 63.2, Lymphocytes (%) (Auto) 22.1L, Monocytes (%) (Auto) 9.2H, Eosinophils (%) (Auto) 4.9H, Basophils (%) (Auto) 0.3, Neutrophils # (Auto) 5.5, Lymphocytes # (Auto) 1.9, Monocytes # (Auto) 0.8, Eosinophils # (Auto) 0.4, Basophils # (Auto) 0.0, Nucleated Red Blood Cells % (auto) 0.0, Anion Gap 6L, Glomerular Filtration Rate 59.4, Calcium Level 9.1, Total Bilirubin 0.9, Aspartate Amino Transf (AST/SGOT) 37, Alanine Aminotransferase (ALT/SGPT) 35, Alkaline Phosphatase 96, Total Protein 6.5, Albumin 3.4, Albumin/Globulin Ratio 1.1L Current Medications Current Medications Current Medications Medications (Trade) Dose Ordered Sig/Dianna Route PRN Reason Start Time Stop Time Status Last Admin Dose Admin Acetaminophen (Tylenol Tab) 650 mg Q4HP PRN PO fever/MILD PAIN (PS 1-4) 03/10/20 17:30 Albuterol/ Ipratropium (Duoneb (Ipr 0.5mg/Alb 2.5mg)) 3 ml RQID NEB 03/10/20 20:00 03/11/20 11:27 Aspirin (Ecotrin) 81 mg DAILY PO 03/11/20 09:00 03/11/20 08:16 Atorvastatin Calcium (Lipitor) 80 mg QHS PO 03/10/20 21:00 03/10/20 21:01 Bisacodyl (Dulcolax Suppository) 10 mg DAILYPRN PRN [place] CONSTIPATION 03/10/20 17:30 Clopidogrel Bisulfate (PLAVix) 75 mg DAILY PO 03/11/20 09:00 03/11/20 08:16 Docusate Sodium (Colace) 100 mg BID PO 03/10/20 21:00 Enoxaparin Sodium (Lovenox) 40 mg DAILY SC 03/11/20 09:00 03/11/20 08:17 Fluoxetine HCl (PROzac) 20 mg DAILY PO 03/11/20 09:00 03/11/20 08:16 Guaifenesin (Robitussin Tab) 400 mg TID PO 03/10/20 21:00 03/11/20 08:17 Hydralazine HCl (Apresoline) 25 mg Q6H PO 03/11/20 00:00 03/11/20 05:51 Hydrochlorothiazide (Hydrodiuril) 12.5 mg DAILY PO 03/11/20 09:00 03/11/20 08:17 Losartan Potassium (Cozaar) 25 mg DAILY PO 03/11/20 09:00 03/11/20 08:23 Magnesium Hydroxide (Milk Of Magnesia) 30 ml DAILYPRN PRN PO CONSTIPATION 03/10/20 17:30 Meclizine HCl (Antivert) 12.5 mg TIDP PRN PO DIZZINESS 03/10/20 17:30 Ondansetron HCl (Zofran Odt) 4 mg Q4HP PRN PO NAUSEA OR VOMITING 03/10/20 17:30 Pantoprazole Sodium (Protonix) 40 mg BID PO 03/10/20 21:00 03/11/20 08:16 Senna (Senokot) 1 tab QHS PO 03/10/20 21:00 CHRISTINE ROMO MD Mar 11, 2020 12:30
[2020-03-11 14:00] VITALS: BP 140/55
[2020-03-11 17:02] VITALS: BP 140/78
--- NOTE | 2020-03-11 18:08 | CR.PDOC ---
General Date of Consultation: Mar 11, 2020 Referring Provider: CHRISTINE ROMO MD Consultation REASON FOR CONSULTATION/CHIEF COMPLAINT: Medicine HISTORY OF PRESENT ILLNESS: Mrs. Sheets is a 69 year old female with left sided CVA (4 years ago), NV, HTN, GERD, HLD, who was initially transferred here from [facility]. She was transferred to [facility] for CVA work up for right sided facial droop and drift in the upper extremities. She also has hypertensive urgency in the ED with SBP 215. When she was transferred here, she was found to have a L sided ischemic cerebellar infarct with right carotid artery stenosis. While here, she was evaluated by vascular surgery, no intervention required at this time, but vascular surgery would like to see her in 6 months in clinic with repeat carotid duplex. Neurology evaluated and would like to see her in office 2 weeks after hospital discharge. She was stabilized and sent to ARU for rehab. This afternoon, I have seen her in the ARU. She is feeling well today. Last night, she was not able to urinate, and they had to straight catheterization. Otherwise, she has a chronic cough. She has residual right leg paresthesias since the stroke. Otherwise, she denies fever/chills, chest pain, dyspnea, abdominal pain, or dysuria. She has urinary retention. ALLERGIES: Please see below. HOME MEDICATIONS: Please see below. PAST MEDICAL HISTORY: 1. HTN 2. NV s/p stenting 3. CVA 4. HLD 5. GERD PAST SURGICAL HISTORY: 1. No prior surgery FAMILY HISTORY: No pertinent family history SOCIAL HISTORY: Active smoker 1/2 ppd Denies alcohol use Denies illicit drug use REVIEW OF SYSTEMS: CONSTITUTIONAL: Denies any fever or chills. Denies lightheadedness or dizziness. ENT: Denies sore throat. RESPIRATORY: Reports chronic cough. Denies shortness of breath. CARDIOVASCULAR: Denies chest pain. Denies palpitations. GASTROINTESTINAL: Denies abdominal pain. Denies diarrhea. Denies constipation GENITOURINARY: Denies dysuria. CUTANEOUS: Denies rashes. MUSCULOSKELETAL: Denies muscle weakness. NEUROLOGICAL: Reports paresthesias in right leg since the CVA PSYCHOLOGICAL: Denies anxiety. Denies depression. PHYSICAL EXAMINATION: VITAL SIGNS: Please see below. GENERAL: Comfortable, in no apparent distress. HEENT: Head normocephalic/atraumatic, EOMI, sclera clear. NECK: Supple RESPIRATORY: Lungs clear to auscultation bilaterally, no rales, wheeze or rhonchi. CARDIOVASCULAR: Regular rate and rhythm. ABDOMEN: Soft, nontender, no guarding or rebound tenderness. Normal bowel sounds. MUSCLE SKELETAL: Mild bilateral pitting edema NEUROLOGICAL: CN 312 grossly intact PSYCHOLOGICAL: Normal mood and affect LABORATORY DATA: Please see below. ASSESSMENT/PLAN: 1. Acute urinary retention -She had to be straight catheterized last night. -UA has been ordered to look for infection -Will do a trial with tamsulosin to see if it would help with urination 2. CVA -Here with CVA and in rehab -Continue aspirin, clopidogrel, and statin -Follow up with Dr. Crow's clinic in 2 weeks after discharge 3. Right carotid artery stenosis -Follow up with Dr. Gonzales in 6 months with repeat US of the carotids -Continue aspirin, clopidogrel, and statin 4. Hypertension -Continue losartan, HCTZ, and hydralazine -Continue to monitor 5. DVT ppx -Lovenox Vital Signs/I&O Vital Signs Date Time Temp Pulse Resp B/P (MAP) Pulse Ox O2 Delivery O2 Flow Rate FiO2 03/11/20 17:05 140/78 03/11/20 14:00 97.9 86 18 95 Room Air I&O- Last 24 Hours up to 6 AM 03/11/20 06:00 Intake Total 0 ml Output Total 1950 ml Balance -1950 ml Laboratory Data Labs 24H Laboratory Tests 2 03/11/20 06:19: Immature Granulocyte % (Auto) 0.3, Neutrophils (%) (Auto) 63.2, Lymphocytes (%) (Auto) 22.1L, Monocytes (%) (Auto) 9.2H, Eosinophils (%) (Auto) 4.9H, Basophils (%) (Auto) 0.3, Neutrophils # (Auto) 5.5, Lymphocytes # (Auto) 1.9, Monocytes # (Auto) 0.8, Eosinophils # (Auto) 0.4, Basophils # (Auto) 0.0, Nucleated Red Blood Cells % (auto) 0.0, Anion Gap 6L, Glomerular Filtration Rate 59.4, Calcium Level 9.1, Total Bilirubin 0.9, Aspartate Amino Transf (AST/SGOT) 37, Alanine Aminotransferase (ALT/SGPT) 35, Alkaline Phosphatase 96, Total Protein 6.5, Albumin 3.4, Albumin/Globulin Ratio 1.1L CBC/BMP Laboratory Tests 03/11/20 06:19 Allergies Coded Allergies: No Known Allergies (Verified Allergy, Unknown, 03/05/20) Home Medications Scheduled Aspirin (Children's Aspirin) 81 Mg Tab.chew, 81 MG PO DAILY for 30 Days, #30 Atorvastatin Calcium (Atorvastatin Calcium) 80 Mg Tablet, 80 MG PO QHS for 30 Days Clopidogrel Bisulfate (Clopidogrel) 75 Mg Tablet, 75 MG PO DAILY for 30 Days, #30 Docusate Sodium (Docusate Sodium) 100 Mg Capsule, 100 MG PO BID for 30 Days, #60 Hydrochlorothiazide (Hydrochlorothiazide) 12.5 Mg Capsule, 12.5 MG PO DAILY for 30 Days, #30 Losartan Potassium (Cozaar) 25 Mg Tablet, 25 MG PO DAILY for 30 Days, #30 Scheduled PRN Acetaminophen (Acetaminophen) 325 Mg Tablet, 650 MG PO Q4H PRN for PAIN OR FEVER for 30 Days, #30 Aluminum/Magnesium/Simeth (Mag-Al Plus Suspension) 30 Ml Oral.susp, 30 ML PO DAILY PRN for DYSPEPSIA for 14 Days, #1 OSCAR NUGENT DO Mar 11, 2020 18:08
[2020-03-11 20:00] VITALS: BP 150/70
[2020-03-11] MEDS: SENNA 8.6 MG TAB (SENOKOT) PO SCH (20:26)
[2020-03-11] MEDS: TAMSULOSIN 0.4 MG CAP PO SCH (20:33)
[2020-03-11] MEDS: ATORVASTATIN 20 MG TAB PO SCH (20:33)
[2020-03-12 00:16] VITALS: BP 168/70
[2020-03-12] MEDS: **hydrALAZINE HCL** 25 MG TAB PO SCH ×5 (00:16→22:11)
[2020-03-12 06:25] LABS: BASO % 0.5 % (0.0-1.0); EOS # 0.3 10^3/uL (0.0-0.5); HEMATOCRIT 40.2 % (36.0-47.0); HEMOGLOBIN 13.4 g/dl (12.0-15.5); LYMPH # 1.6 10^3/uL (1.5-5.0); LYMPH % 20.8 % (24.0-44.0); MEAN CORPUSCULAR HGB CONC 33.3 g/dl (32.0-36.5); MEAN CORPUSCULAR VOLUME 89.9 fl (80.0-96.0); MONO # 0.8 10^3/uL (0.0-0.8); NEUTROPHILS # 4.8 10^3/uL (1.5-8.5); NEUTROPHILS % 64.3 % (36.0-66.0); PLATELET COUNT, AUTOMATED 226 10^3/uL (150-450); RED BLOOD COUNT 4.47 10^6/uL (4.00-5.40); WHITE BLOOD COUNT 7.5 10^3/uL (4.0-10.0)
[2020-03-12 06:31] VITALS: BP 162/74
[2020-03-12 06:46] LABS: CALCIUM LEVEL 8.3 MG/DL (8.8-10.2); CREATININE FOR GFR 1.07 MG/DL (0.55-1.30); GLOMERULAR FILTRATION RATE 54.3 (>45); POTASSIUM SERUM 4.1 MEQ/L (3.5-5.1)
[2020-03-12] MEDS: IPRATROPIUM 0.5MG/ALBUTEROL 2.5MG INH SOL UD 3ML (DUONEB) NEB SCH ×4 (07:25→20:10)
[2020-03-12] MEDS: REMEDY PHYTOPLEX Z-GUARD PASTE 113GM TUBE (FROM STOREROOM PRODUCT) TOP SCH ×3 (09:00→22:05)
[2020-03-12] MEDS: DOCUSATE SODIUM 100 MG CAP PO SCH ×3 (09:00→22:10)
[2020-03-12] MEDS: guaiFENesin 200 MG TAB PO SCH ×3 (09:03→22:10)
[2020-03-12] MEDS: hydroCHLOROthiazide 12.5 MG CAPSULE PO SCH (09:04)
[2020-03-12] MEDS: CLOPIDOGREL 75 MG TAB PO SCH (09:04)
[2020-03-12] MEDS: FLUoxetine 20 MG CAP PO SCH (09:04)
[2020-03-12] MEDS: PANTOPRAZOLE 40MG TAB (PROTONIX) PO SCH ×2 (09:04→22:10)
[2020-03-12] MEDS: ENOXAPARIN 40MG/0.4ML SYRINGE (J1650 PER 10MG) SC SCH (09:04)
[2020-03-12] MEDS: ASPIRIN 81 MG ENTERIC TAB PO SCH (09:04)
[2020-03-12] MEDS: LOSARTAN 25 MG TAB PO SCH (09:05)
[2020-03-12] MEDS: ACETAMINOPHEN TAB 650MG DOSE (2X325MG) PO PRN (10:39)
[2020-03-12] MEDS: BACLOFEN 5MG PER 1/2 TABLET PO SCH ×3 (13:04→22:10)
--- NOTE | 2020-03-12 13:13 | IPNPDOC ---
PM&R Progress Note DATE OF SERVICE: Mar 12, 2020 [employer] B Truck Driver Progress Note Subjective: Patient reporting she urinated a little this morning and was able to sense it. She states her upper thighs are cramping when she moves. REVIEW OF SYSTEMS: The following is a completed review of systems and has been reviewed. Review of systems otherwise unremarkable. PAIN: Patient self reports no pain EYES: No recent vision changes EARS, NOSE, & THROAT: No throat pain, +dysphagia CARDIOVASCULAR: Denies chest pain or palpitations PULMONARY: Denies shortness of breath, +cough (improving) GASTROINTESTINAL: Denies constipation/diarrhea GENITOURINARY: denies dysuria MUSCULOSKELETAL: right sided weakness NEUROLOGICAL:apraxia/dysmetria, right sided paresis HEMATOLOGICAL: denies easy bruising SKIN: denies rash PSYCHIATRIC: Unremarkable All other review of systems found to be negative. PHYSICAL EXAMINATION: VITAL SIGNS: Please see below. GENERAL: Pleasant and cooperative. No acute distress. HEENT: PERRL. Extraocular movements intact. Clear conjunctiva CARDIOVASCULAR: Regular rate and rhythm. No murmurs, rubs, or gallops LUNGS: scattered rhonchi ABDOMEN: Soft, nontender, nondistended. Positive bowel sounds. Normal active bowel sounds NEUROLOGICAL: Alert and oriented times three. Cranial nerves II through XII grossly intact. Sensation grossly intact with extinction to tough on right side +brisk patellar reflexes bilat +dysmetria L>R EXTREMITIES: 5\5 strength LUE, 4/5 RUE, 5\5 strength right lower extremity. /5 strength in left lower extremity. SKIN: intact ASSESSMENT:69-year-old F with past medical history of DE s/p stent and CVA who presents status post right cerebellar and midbrain infarct PLAN: 1. Rehab- PT/OT advance gait and mobility, strengthen/stretch/maintain ROM all 4 limbs, ambulating with RW -METER MAKER for dysphagia and cognition 2. Neuro- hx of CVA with right cerebellar midbrain infarct with right carotid artery stenosis- c/u ASA/Plavix, statin for secondary stroke prevention, tight BP control -SSRI for motor recovery, meclizine and Zofran prn for possible vertigo/nausea/vomiting due to stroke -f/u vascular in 6 months for repeat carotid doppler 3. CArdiac- hx of DE s/p stenting, recent ECHO + for diastolic CHF, daily weights, on diuretics, will avoid fluid restriction for now while on dysphagia diet and monitor for fluid overload- medicine consulted to assist in overall management -1 st degree AVB with recent bradycardia, c/u to avoid beta-blockers -HTN c/u Cozaar/HCTZ, c/u hydralazine with holding parameters for elevated BPs 4. resp- monitor for infection, encourage incentive spirometry -current smoker, c/u duonebs and mucinex-cough c/u to improve 5. GI ppx- protonix 6. DVT ppx- lovenox, teds 7. Pain- tylenol prn -patient reporting bilateral leg spasms since stroke, will start baclofen (no hx of seizures) 8. - urinary retention, UA negative, started on Flomax last night, will c/u to do bladder scans and order timed voids for neurogenic bladder ins etting of recent stroke 8. Dispo- TBD Allergies Coded Allergies: No Known Allergies (Verified Allergy, Unknown, 03/05/20) Vital Signs Vital Signs Date Time Temp Pulse Resp B/P (MAP) Pulse Ox O2 Delivery O2 Flow Rate FiO2 03/12/20 13:04 140/80 03/12/20 06:31 98.4 70 20 93 Room Air Laboratory Data CBC/BMP Laboratory Tests 03/12/20 06:07 Labs 24H Laboratory Tests 2 03/11/20 18:10: Urine Color YELLOW, Urine Appearance CLEAR, Urine pH 5.0, Urine Specific Steele 1.010, Urine Protein NEGATIVE, Urine Glucose (UA) NEGATIVE, Urine Ketones NEGATIVE, Urine Blood NEGATIVE, Urine Nitrite NEGATIVE, Urine Bilirubin NEGATIVE, Urine Urobilinogen 0.2, Urine Leukocyte Esterase NEGATIVE, Urine WBC (Auto) 0, Urine RBC (Auto) 1, Urine Hyaline Casts (Auto) 0, Urine Bacteria (Auto) NEGATIVE, Urine Squamous Epithelial Cells 0, Urine Sperm (Auto) 03/12/20 06:07: Immature Granulocyte % (Auto) 0.4, Neutrophils (%) (Auto) 64.3, Lymphocytes (%) (Auto) 20.8L, Monocytes (%) (Auto) 10.0H, Eosinophils (%) (Auto) 4.0H, Basophils (%) (Auto) 0.5, Neutrophils # (Auto) 4.8, Lymphocytes # (Auto) 1.6, Monocytes # (Auto) 0.8, Eosinophils # (Auto) 0.3, Basophils # (Auto) 0.0, Nucleated Red Blood Cells % (auto) 0.0, Anion Gap 8, Glomerular Filtration Rate 54.3, Calcium Level 8.3L Current Medications Current Medications Current Medications Medications (Trade) Dose Ordered Sig/Dianna Route PRN Reason Start Time Stop Time Status Last Admin Dose Admin Acetaminophen (Tylenol Tab) 650 mg Q4HP PRN PO fever/MILD PAIN (PS 1-4) 03/10/20 17:30 03/12/20 10:39 Albuterol/ Ipratropium (Duoneb (Ipr 0.5mg/Alb 2.5mg)) 3 ml RQID NEB 03/10/20 20:00 03/12/20 07:25 Aspirin (Ecotrin) 81 mg DAILY PO 03/11/20 09:00 03/12/20 09:04 Atorvastatin Calcium (Lipitor) 80 mg QHS PO 03/10/20 21:00 03/11/20 20:33 Baclofen (Lioresal) 5 mg TID PO 03/12/20 12:00 03/12/20 13:04 Bisacodyl (Dulcolax Suppository) 10 mg DAILYPRN PRN [place] CONSTIPATION 03/10/20 17:30 Clopidogrel Bisulfate (PLAVix) 75 mg DAILY PO 03/11/20 09:00 03/12/20 09:04 Docusate Sodium (Colace) 100 mg BID PO 03/10/20 21:00 Enoxaparin Sodium (Lovenox) 40 mg DAILY SC 03/11/20 09:00 03/12/20 09:04 Fluoxetine HCl (PROzac) 20 mg DAILY PO 03/11/20 09:00 03/12/20 09:04 Guaifenesin (Robitussin Tab) 400 mg TID PO 03/10/20 21:00 03/12/20 09:03 Hydralazine HCl (Apresoline) 25 mg Q6H PO 03/11/20 00:00 03/12/20 13:04 Hydrochlorothiazide (Hydrodiuril) 12.5 mg DAILY PO 03/11/20 09:00 03/12/20 09:04 Losartan Potassium (Cozaar) 25 mg DAILY PO 03/11/20 09:00 03/12/20 09:05 Magnesium Hydroxide (Milk Of Magnesia) 30 ml DAILYPRN PRN PO CONSTIPATION 03/10/20 17:30 Meclizine HCl (Antivert) 12.5 mg TIDP PRN PO DIZZINESS 03/10/20 17:30 Ondansetron HCl (Zofran Odt) 4 mg Q4HP PRN PO NAUSEA OR VOMITING 03/10/20 17:30 Pantoprazole Sodium (Protonix) 40 mg BID PO 03/10/20 21:00 03/12/20 09:04 Senna (Senokot) 1 tab QHS PO 03/10/20 21:00 Tamsulosin HCl (Flomax) 0.4 mg QHS PO 03/11/20 21:00 03/11/20 20:33 CHRISTINE ROMO MD Mar 12, 2020 13:13
[2020-03-12 14:00] VITALS: BP 136/56
[2020-03-12 22:00] VITALS: BP 160/78
[2020-03-12] MEDS: ATORVASTATIN 20 MG TAB PO SCH (22:10)
[2020-03-12] MEDS: SENNA 8.6 MG TAB (SENOKOT) PO SCH (22:10)
[2020-03-12] MEDS: TAMSULOSIN 0.4 MG CAP PO SCH (22:10)
[2020-03-13 04:59] VITALS: BP 150/68
[2020-03-13] MEDS: ACETAMINOPHEN TAB 650MG DOSE (2X325MG) PO PRN (05:04)
[2020-03-13] MEDS: **hydrALAZINE HCL** 25 MG TAB PO SCH ×3 (05:04→18:31)
[2020-03-13] MEDS: IPRATROPIUM 0.5MG/ALBUTEROL 2.5MG INH SOL UD 3ML (DUONEB) NEB SCH ×4 (07:26→18:30)
[2020-03-13] MEDS: ENOXAPARIN 40MG/0.4ML SYRINGE (J1650 PER 10MG) SC SCH (08:52)
[2020-03-13] MEDS: DOCUSATE SODIUM 100 MG CAP PO SCH ×2 (08:53→20:12)
[2020-03-13] MEDS: guaiFENesin 200 MG TAB PO SCH ×3 (08:53→20:12)
[2020-03-13] MEDS: PANTOPRAZOLE 40MG TAB (PROTONIX) PO SCH ×2 (08:53→20:12)
[2020-03-13] MEDS: BACLOFEN 5MG PER 1/2 TABLET PO SCH ×3 (08:53→20:12)
[2020-03-13] MEDS: ASPIRIN 81 MG ENTERIC TAB PO SCH (08:53)
[2020-03-13] MEDS: hydroCHLOROthiazide 12.5 MG CAPSULE PO SCH (08:53)
[2020-03-13] MEDS: FLUoxetine 20 MG CAP PO SCH (08:53)
[2020-03-13] MEDS: CLOPIDOGREL 75 MG TAB PO SCH (08:53)
[2020-03-13] MEDS: LOSARTAN 25 MG TAB PO SCH (08:55)
[2020-03-13] MEDS: REMEDY PHYTOPLEX Z-GUARD PASTE 113GM TUBE (FROM STOREROOM PRODUCT) TOP SCH ×3 (08:56→20:12)
[2020-03-13] MEDS ORDERED: ANALGESIC BALM CRM 120 GM TOP SCH (09:00)
[2020-03-13 14:00] VITALS: BP 142/83
--- NOTE | 2020-03-13 17:12 | IPNPDOC ---
PM&R Progress Note DATE OF SERVICE: Mar 13, 2020 Long Chain Beamer Progress Note Subjective: Patient reporting her legs feel much better since starting baclofen, but that her arms, specifically her elbows feel sore. She does not want to try icy-hot and is open to trying cymbalta. REVIEW OF SYSTEMS: The following is a completed review of systems and has been reviewed. Review of systems otherwise unremarkable. PAIN: Patient self reports no pain EYES: No recent vision changes EARS, NOSE, & THROAT: No throat pain, +dysphagia CARDIOVASCULAR: Denies chest pain or palpitations PULMONARY: Denies shortness of breath, +cough (improving) GASTROINTESTINAL: Denies constipation/diarrhea GENITOURINARY: denies dysuria MUSCULOSKELETAL: right sided weakness NEUROLOGICAL:apraxia/dysmetria, right sided paresis HEMATOLOGICAL: denies easy bruising SKIN: denies rash PSYCHIATRIC: Unremarkable All other review of systems found to be negative. PHYSICAL EXAMINATION: VITAL SIGNS: Please see below. GENERAL: Pleasant and cooperative. No acute distress. HEENT: PERRL. Extraocular movements intact. Clear conjunctiva CARDIOVASCULAR: Regular rate and rhythm. No murmurs, rubs, or gallops LUNGS: scattered rhonchi ABDOMEN: Soft, nontender, nondistended. Positive bowel sounds. Normal active bowel sounds NEUROLOGICAL: Alert and oriented times three. Cranial nerves II through XII grossly intact. Sensation grossly intact with extinction to tough on right side +brisk patellar reflexes bilat +dysmetria L>R EXTREMITIES: 5\5 strength LUE, 4/5 RUE, 5\5 strength right lower extremity. /5 strength in left lower extremity. SKIN: intact ASSESSMENT:69-year-old F with past medical history of PA s/p stent and CVA who presents status post right cerebellar and midbrain infarct PLAN: 1. Rehab- PT/OT advance gait and mobility, strengthen/stretch/maintain ROM all 4 limbs, ambulating with RW -CORRECTIONAL PROGRAM OFFICER for dysphagia and cognition 2. Neuro- hx of CVA with right cerebellar midbrain infarct with right carotid ar liliana stenosis- c/u ASA/Plavix, statin for secondary stroke prevention, tight BP control -SNRI for motor recovery, meclizine and Zofran prn for possible vertigo/nausea/vomiting due to stroke -f/u vascular in 6 months for repeat carotid doppler 3. CArdiac- hx of PA s/p stenting, recent ECHO + for diastolic CHF, daily weights, on diuretics, will avoid fluid restriction for now while on dysphagia diet and monitor for fluid overload- medicine consulted to assist in overall management -1 st degree AVB with recent bradycardia, c/u to avoid beta-blockers -HTN c/u Cozaar/HCTZ, c/u hydralazine with holding parameters for elevated BPs 4. resp- monitor for infection, encourage incentive spirometry -current smoker, c/u duonebs and mucinex-cough c/u to improve 5. GI ppx- protonix 6. DVT ppx- lovenox, teds 7. Pain- tylenol prn -patient reporting bilateral leg spasms since stroke, c/u baclofe -will switch SSRI to Cymbalta to help with bilateral elbow pain/ UE pain 8. - urinary retention in setting of suspected neurogenic bladder-gradually improving, c/u flomax, UA negative 8. Dispo- TBD Allergies Coded Allergies: No Known Allergies (Verified Allergy, Unknown, 03/05/20) Vital Signs Vital Signs Date Time Temp Pulse Resp B/P (MAP) Pulse Ox O2 Delivery O2 Flow Rate FiO2 03/13/20 14:00 97.8 79 18 142/83 (102) 93 Room Air Current Medications Current Medications Current Medications Medications (Trade) Dose Ordered Sig/Dianna Route PRN Reason Start Time Stop Time Status Last Admin Dose Admin Acetaminophen (Tylenol Tab) 650 mg Q4HP PRN PO fever/MILD PAIN (PS 1-4) 03/10/20 17:30 03/13/20 05:04 Albuterol/ Ipratropium (Duoneb (Ipr 0.5mg/Alb 2.5mg)) 3 ml RQID NEB 03/10/20 20:00 03/13/20 13:03 Aspirin (Ecotrin) 81 mg DAILY PO 03/11/20 09:00 03/13/20 08:53 Atorvastatin Calcium (Lipitor) 80 mg QHS PO 03/10/20 21:00 03/12/20 22:10 Baclofen (Lioresal) 5 mg TID PO 03/12/20 12:00 03/13/20 15:43 Bisacodyl (Dulcolax Suppository) 10 mg DAILYPRN PRN [place] CONSTIPATION 03/10/20 17:30 Clopidogrel Bisulfate (PLAVix) 75 mg DAILY PO 03/11/20 09:00 03/13/20 08:53 Docusate Sodium (Colace) 100 mg BID PO 03/10/20 21:00 03/13/20 08:53 Duloxetine HCl (Cymbalta) 20 mg DAILY PO 03/14/20 09:00 Enoxaparin Sodium (Lovenox) 40 mg DAILY SC 03/11/20 09:00 03/13/20 08:52 Fluoxetine HCl (PROzac) 20 mg DAILY PO 03/11/20 09:00 03/13/20 16:25 DC 03/13/20 08:53 Guaifenesin (Robitussin Tab) 400 mg TID PO 03/10/20 21:00 03/13/20 15:43 Hydralazine HCl (Apresoline) 25 mg Q6H PO 03/11/20 00:00 03/13/20 12:11 Hydrochlorothiazide (Hydrodiuril) 12.5 mg DAILY PO 03/11/20 09:00 03/13/20 08:53 Losartan Potassium (Cozaar) 25 mg DAILY PO 03/11/20 09:00 03/13/20 08:55 Magnesium Hydroxide (Milk Of Magnesia) 30 ml DAILYPRN PRN PO CONSTIPATION 03/10/20 17:30 Meclizine HCl (Antivert) 12.5 mg TIDP PRN PO DIZZINESS 03/10/20 17:30 Menthol/Methyl Salicylate (Bengay Cream) APPLY TO BILATERAL UP... BID TOP 03/13/20 09:00 03/13/20 15:35 DC Ondansetron HCl (Zofran Odt) 4 mg Q4HP PRN PO NAUSEA OR VOMITING 03/10/20 17:30 Pantoprazole Sodium (Protonix) 40 mg BID PO 03/10/20 21:00 03/13/20 08:53 Senna (Senokot) 1 tab QHS PO 03/10/20 21:00 03/12/20 22:10 Tamsulosin HCl (Flomax) 0.4 mg QHS PO 03/11/20 21:00 03/12/20 22:10 CHRISTINE ROMO MD Mar 13, 2020 17:12
[2020-03-13 20:00] VITALS: BP 132/85
[2020-03-13] MEDS: ATORVASTATIN 20 MG TAB PO SCH (20:12)
[2020-03-13] MEDS: SENNA 8.6 MG TAB (SENOKOT) PO SCH (20:12)
[2020-03-13] MEDS: TAMSULOSIN 0.4 MG CAP PO SCH (20:12)
[2020-03-14] MEDS: **hydrALAZINE HCL** 25 MG TAB PO SCH ×4 (00:11→18:00)
[2020-03-14 06:00] VITALS: BP 141/80
[2020-03-14 07:01] LABS: BASO % 0.3 % (0.0-1.0); EOS # 0.3 10^3/uL (0.0-0.5); EOS % 4.5 % (0.0-3.0); HEMATOCRIT 39.9 % (36.0-47.0); HEMOGLOBIN 13.5 g/dl (12.0-15.5); LYMPH # 1.4 10^3/uL (1.5-5.0); LYMPH % 20.2 % (24.0-44.0); MEAN CORPUSCULAR HEMOGLOBIN 30.3 pg (27.0-33.0); MEAN CORPUSCULAR HGB CONC 33.8 g/dl (32.0-36.5); MEAN CORPUSCULAR VOLUME 89.7 fl (80.0-96.0); MONO # 0.8 10^3/uL (0.0-0.8); MONO % 11.4 % (0.0-5.0); NEUTROPHILS # 4.4 10^3/uL (1.5-8.5); NEUTROPHILS % 63.2 % (36.0-66.0); PLATELET COUNT, AUTOMATED 225 10^3/uL (150-450); RED BLOOD COUNT 4.45 10^6/uL (4.00-5.40); WHITE BLOOD COUNT 6.9 10^3/uL (4.0-10.0)
[2020-03-14] MEDS: IPRATROPIUM 0.5MG/ALBUTEROL 2.5MG INH SOL UD 3ML (DUONEB) NEB SCH ×5 (07:16→20:33)
[2020-03-14 07:23] LABS: CALCIUM LEVEL 8.6 MG/DL (8.8-10.2); CREATININE FOR GFR 1.07 MG/DL (0.55-1.30); GLOMERULAR FILTRATION RATE 54.3 (>45); POTASSIUM SERUM 3.7 MEQ/L (3.5-5.1)
[2020-03-14] MEDS: CLOPIDOGREL 75 MG TAB PO SCH (08:34)
[2020-03-14] MEDS: DULoxetine 20 MG CAP (CYMBALTA) PO SCH (08:34)
[2020-03-14] MEDS: PANTOPRAZOLE 40MG TAB (PROTONIX) PO SCH ×2 (08:34→21:37)
[2020-03-14] MEDS: guaiFENesin 200 MG TAB PO SCH ×3 (08:34→21:37)
[2020-03-14] MEDS: ASPIRIN 81 MG ENTERIC TAB PO SCH (08:34)
[2020-03-14] MEDS: BACLOFEN 5MG PER 1/2 TABLET PO SCH ×3 (08:34→21:37)
[2020-03-14] MEDS: LOSARTAN 25 MG TAB PO SCH (08:34)
[2020-03-14] MEDS: hydroCHLOROthiazide 12.5 MG CAPSULE PO SCH (08:35)
[2020-03-14] MEDS: ENOXAPARIN 40MG/0.4ML SYRINGE (J1650 PER 10MG) SC SCH (08:35)
[2020-03-14] MEDS: DOCUSATE SODIUM 100 MG CAP PO SCH ×2 (08:35→21:37)
[2020-03-14] MEDS: REMEDY PHYTOPLEX Z-GUARD PASTE 113GM TUBE (FROM STOREROOM PRODUCT) TOP SCH ×3 (08:35→21:00)
[2020-03-14 16:00] VITALS: BP 133/61
[2020-03-14] MEDS: ACETAMINOPHEN TAB 650MG DOSE (2X325MG) PO PRN (16:26)
[2020-03-14 20:00] VITALS: BP 152/62
[2020-03-14] MEDS: ATORVASTATIN 20 MG TAB PO SCH (21:37)
[2020-03-14] MEDS: TAMSULOSIN 0.4 MG CAP PO SCH (21:37)
[2020-03-14] MEDS: SENNA 8.6 MG TAB (SENOKOT) PO SCH (21:37)
[2020-03-15] MEDS: **hydrALAZINE HCL** 25 MG TAB PO SCH ×4 (00:22→17:05)
[2020-03-15 06:20] VITALS: BP 150/78
[2020-03-15] MEDS: IPRATROPIUM 0.5MG/ALBUTEROL 2.5MG INH SOL UD 3ML (DUONEB) NEB SCH ×4 (07:51→20:38)
[2020-03-15] MEDS: REMEDY PHYTOPLEX Z-GUARD PASTE 113GM TUBE (FROM STOREROOM PRODUCT) TOP SCH ×3 (09:00→20:53)
[2020-03-15] MEDS: DOCUSATE SODIUM 100 MG CAP PO SCH ×3 (09:00→20:53)
[2020-03-15 09:30] VITALS: BP 156/74
[2020-03-15] MEDS: ENOXAPARIN 40MG/0.4ML SYRINGE (J1650 PER 10MG) SC SCH (09:31)
[2020-03-15] MEDS: guaiFENesin 200 MG TAB PO SCH ×3 (09:31→20:52)
[2020-03-15] MEDS: CLOPIDOGREL 75 MG TAB PO SCH (09:31)
[2020-03-15] MEDS: BACLOFEN 5MG PER 1/2 TABLET PO SCH ×3 (09:31→20:52)
[2020-03-15] MEDS: DULoxetine 20 MG CAP (CYMBALTA) PO SCH (09:32)
[2020-03-15] MEDS: PANTOPRAZOLE 40MG TAB (PROTONIX) PO SCH ×2 (09:32→20:52)
[2020-03-15] MEDS: LOSARTAN 25 MG TAB PO SCH (09:32)
[2020-03-15] MEDS: ASPIRIN 81 MG ENTERIC TAB PO SCH (09:32)
[2020-03-15] MEDS: hydroCHLOROthiazide 12.5 MG CAPSULE PO SCH (09:32)
[2020-03-15 14:00] VITALS: BP 136/67
[2020-03-15 20:00] VITALS: BP 150/70
[2020-03-15] MEDS: ATORVASTATIN 20 MG TAB PO SCH (20:52)
[2020-03-15] MEDS: TAMSULOSIN 0.4 MG CAP PO SCH (20:52)
[2020-03-15] MEDS: SENNA 8.6 MG TAB (SENOKOT) PO SCH (20:53)
[2020-03-16] MEDS: **hydrALAZINE HCL** 25 MG TAB PO SCH ×4 (00:48→17:26)
[2020-03-16] MEDS: ACETAMINOPHEN TAB 650MG DOSE (2X325MG) PO PRN (00:51)
[2020-03-16 06:12] VITALS: BP 152/68
[2020-03-16] MEDS: IPRATROPIUM 0.5MG/ALBUTEROL 2.5MG INH SOL UD 3ML (DUONEB) NEB SCH ×4 (07:44→19:58)
[2020-03-16] MEDS: REMEDY PHYTOPLEX Z-GUARD PASTE 113GM TUBE (FROM STOREROOM PRODUCT) TOP SCH ×3 (09:00→20:50)
[2020-03-16] MEDS: CLOPIDOGREL 75 MG TAB PO SCH (09:46)
[2020-03-16] MEDS: BACLOFEN 5MG PER 1/2 TABLET PO SCH ×3 (09:46→20:50)
[2020-03-16] MEDS: guaiFENesin 200 MG TAB PO SCH ×3 (09:46→20:50)
[2020-03-16] MEDS: ASPIRIN 81 MG ENTERIC TAB PO SCH (09:46)
[2020-03-16] MEDS: DULoxetine 20 MG CAP (CYMBALTA) PO SCH (09:48)
[2020-03-16] MEDS: ENOXAPARIN 40MG/0.4ML SYRINGE (J1650 PER 10MG) SC SCH (09:48)
[2020-03-16] MEDS: hydroCHLOROthiazide 12.5 MG CAPSULE PO SCH (09:48)
[2020-03-16] MEDS: PANTOPRAZOLE 40MG TAB (PROTONIX) PO SCH ×2 (09:48→20:50)
[2020-03-16] MEDS: LOSARTAN 25 MG TAB PO SCH (09:48)
[2020-03-16] MEDS: DOCUSATE SODIUM 100 MG CAP PO SCH ×2 (09:49→20:50)
[2020-03-16 15:01] VITALS: BP 150/82
[2020-03-16 20:00] VITALS: BP 146/62
[2020-03-16] MEDS: TAMSULOSIN 0.4 MG CAP PO SCH (20:50)
[2020-03-16] MEDS: ATORVASTATIN 20 MG TAB PO SCH (20:50)
[2020-03-16] MEDS: SENNA 8.6 MG TAB (SENOKOT) PO SCH (20:50)
[2020-03-17] MEDS: **hydrALAZINE HCL** 25 MG TAB PO SCH ×4 (01:00→17:47)
[2020-03-17] MEDS: ACETAMINOPHEN TAB 650MG DOSE (2X325MG) PO PRN ×2 (01:56→19:43)
[2020-03-17] MEDS: IPRATROPIUM 0.5MG/ALBUTEROL 2.5MG INH SOL UD 3ML (DUONEB) NEB SCH ×4 (06:11→19:57)
[2020-03-17 06:44] VITALS: BP 144/70
[2020-03-17] MEDS: BACLOFEN 5MG PER 1/2 TABLET PO SCH ×3 (08:33→19:42)
[2020-03-17] MEDS: ASPIRIN 81 MG ENTERIC TAB PO SCH (08:34)
[2020-03-17] MEDS: DULoxetine 20 MG CAP (CYMBALTA) PO SCH (08:34)
[2020-03-17] MEDS: LOSARTAN 25 MG TAB PO SCH (08:34)
[2020-03-17] MEDS: PANTOPRAZOLE 40MG TAB (PROTONIX) PO SCH ×2 (08:34→19:42)
[2020-03-17] MEDS: guaiFENesin 200 MG TAB PO SCH ×3 (08:34→19:35)
[2020-03-17] MEDS: CLOPIDOGREL 75 MG TAB PO SCH (08:34)
[2020-03-17] MEDS: ENOXAPARIN 40MG/0.4ML SYRINGE (J1650 PER 10MG) SC SCH (08:35)
[2020-03-17] MEDS: hydroCHLOROthiazide 12.5 MG CAPSULE PO SCH (08:35)
[2020-03-17] MEDS: REMEDY PHYTOPLEX Z-GUARD PASTE 113GM TUBE (FROM STOREROOM PRODUCT) TOP SCH ×3 (08:36→19:35)
[2020-03-17] MEDS: DOCUSATE SODIUM 100 MG CAP PO SCH ×2 (08:36→19:34)
[2020-03-17 14:00] VITALS: BP 143/62
[2020-03-17] MEDS: SENNA 8.6 MG TAB (SENOKOT) PO SCH (19:35)
[2020-03-17] MEDS: TAMSULOSIN 0.4 MG CAP PO SCH (19:42)
[2020-03-17] MEDS: ATORVASTATIN 20 MG TAB PO SCH (19:42)
[2020-03-17 20:00] VITALS: BP 160/80
[2020-03-18] MEDS: **hydrALAZINE HCL** 25 MG TAB PO SCH ×3 (00:21→12:51)
[2020-03-18 06:38] VITALS: BP 170/80
[2020-03-18] MEDS: IPRATROPIUM 0.5MG/ALBUTEROL 2.5MG INH SOL UD 3ML (DUONEB) NEB SCH ×4 (08:02→20:49)
[2020-03-18] MEDS: DULoxetine 20 MG CAP (CYMBALTA) PO SCH (08:19)
[2020-03-18] MEDS: PANTOPRAZOLE 40MG TAB (PROTONIX) PO SCH ×2 (08:19→20:43)
[2020-03-18] MEDS: hydroCHLOROthiazide 12.5 MG CAPSULE PO SCH (08:19)
[2020-03-18] MEDS: CLOPIDOGREL 75 MG TAB PO SCH (08:19)
[2020-03-18] MEDS: BACLOFEN 5MG PER 1/2 TABLET PO SCH ×3 (08:19→20:42)
[2020-03-18] MEDS: guaiFENesin 200 MG TAB PO SCH ×3 (08:19→20:37)
[2020-03-18] MEDS: ASPIRIN 81 MG ENTERIC TAB PO SCH (08:19)
[2020-03-18] MEDS: LOSARTAN 25 MG TAB PO SCH ×2 (08:20→20:42)
[2020-03-18] MEDS: REMEDY PHYTOPLEX Z-GUARD PASTE 113GM TUBE (FROM STOREROOM PRODUCT) TOP SCH ×3 (08:20→20:43)
[2020-03-18] MEDS: ENOXAPARIN 40MG/0.4ML SYRINGE (J1650 PER 10MG) SC SCH (08:20)
[2020-03-18] MEDS: DOCUSATE SODIUM 100 MG CAP PO SCH ×2 (08:21→20:38)
[2020-03-18] MEDS ORDERED: **hydrALAZINE** 10 MG TAB PO PRN (13:00)
[2020-03-18] MEDS ORDERED: amLODIPine 5 MG TAB PO ONE (13:15)
[2020-03-18 14:00] VITALS: BP 119/73
[2020-03-18 14:21] LABS: BLOOD UREA NITROGEN 21 MG/DL (7-18); CALCIUM LEVEL 8.2 MG/DL (8.8-10.2); CARBON DIOXIDE LEVEL 22 MEQ/L (21-32); CHLORIDE LEVEL 91 MEQ/L (98-107); CREATININE FOR GFR 0.96 MG/DL (0.55-1.30); GLOMERULAR FILTRATION RATE > 60.0 (>45); GLUCOSE, FASTING 123 MG/DL (70-100); POTASSIUM SERUM 3.6 MEQ/L (3.5-5.1); SODIUM LEVEL 123 MEQ/L (136-145)
[2020-03-18 17:41] LABS: THYROID STIMULATING HORMONE 4.07 uIU/ML (0.358-3.740); URIC ACID 5.3 MG/DL (2.6-6.0)
--- NOTE | 2020-03-18 17:44 | REPVR ---
PROCEDURE INFORMATION: Exam: XR Chest, 1 View Exam date and time: 03/18/2020 4:26 PM Age: 69 years old Clinical indication: Shortness of breath; Additional info: Hyponatremia TECHNIQUE: Imaging protocol: XR of the chest Views: 1 view. COMPARISON: CR Chest, 1 view 03/05/2020 5:20 PM FINDINGS: Lungs: Unremarkable. No consolidation. Pleural space: Unremarkable. No pleural effusion. No pneumothorax. Heart/Mediastinum: Unremarkable. No cardiomegaly. Bones/joints: Unremarkable. IMPRESSION: No acute findings. Electronically signed by: Akbar Reyes On 03/18/2020 17:44:47 PM
[2020-03-18] MEDS ORDERED: TOLVAPTAN 7.5 MG HALF-TAB PO ONE (18:00)
[2020-03-18] MEDS ORDERED: TOLVAPTAN 15 MG TAB (SAMSCA) PO ONE (18:00)
[2020-03-18 18:30] LABS: OSMOLALITY URINE 439 MOSM/KG (500-800)
[2020-03-18 18:47] LABS: SODIUM,RANDOM URINE 47 MEQ/L
--- NOTE | 2020-03-18 18:48 | IPNPDOC ---
Date Seen The patient was seen on 03/18/20. Progress Note SUBJECTIVE: Patient denies confusion, but PT/OT noticed difficulty with concentration and remembering commands. Pt c/o headache diffusely without neck rigidity, fever, photophobia, chills. OBJECTIVE PHYSICAL EXAMINATION: VITAL SIGNS: Please see below. GENERAL: able to state [facility] in [place], mar 18, 2020, President Eddie, Fall season. AAOx3. no respiratory distress. no facial asymmetry, fluent speech HEENT: moist mucus membranes. EOMI no JVD CARDIOVASCULAR:S1S2 RRR RESPIRATORY: CTAB ABDOMINAL: soft NT ND EXTREMITIES: no cyanosis or clubbing NEUROLOGICAL: AAOx3, motor 5/5 b/l UE and LE. gait not tested. LABORATORY DATA, IMAGING STUDIES, MICROBIOLOGY: Please see below. ASSESSMENT AND PLAN: 69 y/o w carotid stenosis and cerebellar ischemic CVA 1.Hyponatremia, symptomatic most likely related to CVA and HCTZ. discontinue HCTZ check serum and urine osm, TSH, uric Acid no signs of fluid overload. check bmp q6hrs to goal of sodium 134 by 1300 tomorrow. seizure precautions low dose samsca. check CXR. change to regular diet 2.L sided ischemic cerebellar infarct with right carotid artery stenosis. ARU team for management 3.Hypertensive Urgency dc HCTZ which is most likely contributing to low sodium increase losartan to 25mg bid isosorbide can be added for better control. PRN hydralazine for sbp>150mmHg will follow along. VS, I&O, 24H, Fishbone Vital Signs/I&O Vital Signs Date Time Temp Pulse Resp B/P (MAP) Pulse Ox O2 Delivery O2 Flow Rate FiO2 03/18/20 14:16 72 162/88 03/18/20 14:00 97.8 18 95 Room Air I&O- Last 24 Hours up to 6 AM 03/18/20 06:00 Intake Total 660 ml Output Total 650 ml Balance 10 ml Laboratory Data 24H LABS Laboratory Tests 2 03/18/20 13:15: Anion Gap 10, Glomerular Filtration Rate > 60.0, Calcium Level 8.2L 03/18/20 16:42: Osmolality 253L, Uric Acid 5.3, Thyroid Stimulating Hormone (TSH) 4.070H 03/18/20 18:07: Urine Random Osmolality 439L CBC/BMP Laboratory Tests 03/18/20 13:15 MAKENNA SCHAEFER MD Mar 18, 2020 18:43
[2020-03-18] MEDS: ISOSORBIDE DIN. (ISORDIL) 20 MG TAB PO SCH (18:49)
[2020-03-18] MEDS: ATORVASTATIN 20 MG TAB PO SCH (20:38)
[2020-03-18] MEDS: amLODIPine 5 MG TAB PO SCH (20:41)
[2020-03-18] MEDS: TAMSULOSIN 0.4 MG CAP PO SCH (20:43)
[2020-03-18] MEDS: SENNA 8.6 MG TAB (SENOKOT) PO SCH (20:43)
[2020-03-18] MEDS: LEVOTHYROXINE 12.5MCG PER 1/2 TAB (0.0125MG) PO SCH (21:03)
[2020-03-18 21:51] VITALS: BP 154/80
[2020-03-19] MEDS: ISOSORBIDE DIN. (ISORDIL) 20 MG TAB PO SCH ×4 (00:28→17:52)
[2020-03-19] MEDS: LEVOTHYROXINE 12.5MCG PER 1/2 TAB (0.0125MG) PO SCH (05:29)
[2020-03-19 05:48] VITALS: BP 152/78
[2020-03-19] MEDS: IPRATROPIUM 0.5MG/ALBUTEROL 2.5MG INH SOL UD 3ML (DUONEB) NEB SCH ×4 (07:59→19:41)
[2020-03-19 08:04] LABS: CALCIUM LEVEL 8.4 MG/DL (8.8-10.2); CREATININE FOR GFR 1.17 MG/DL (0.55-1.30); POTASSIUM SERUM 3.9 MEQ/L (3.5-5.1)
[2020-03-19] MEDS: LOSARTAN 25 MG TAB PO SCH ×2 (09:00→20:46)
[2020-03-19] MEDS: REMEDY PHYTOPLEX Z-GUARD PASTE 113GM TUBE (FROM STOREROOM PRODUCT) TOP SCH ×3 (09:00→20:49)
[2020-03-19] MEDS: DULoxetine 20 MG CAP (CYMBALTA) PO SCH (09:53)
[2020-03-19] MEDS: BACLOFEN 5MG PER 1/2 TABLET PO SCH ×3 (09:53→20:46)
[2020-03-19] MEDS: DOCUSATE SODIUM 100 MG CAP PO SCH ×2 (09:53→20:47)
[2020-03-19] MEDS: ENOXAPARIN 40MG/0.4ML SYRINGE (J1650 PER 10MG) SC SCH (09:53)
[2020-03-19] MEDS: guaiFENesin 200 MG TAB PO SCH ×3 (09:53→20:46)
[2020-03-19] MEDS: amLODIPine 5 MG TAB PO SCH ×2 (09:54→20:47)
[2020-03-19] MEDS: CLOPIDOGREL 75 MG TAB PO SCH (09:54)
[2020-03-19] MEDS: ASPIRIN 81 MG ENTERIC TAB PO SCH (09:54)
[2020-03-19] MEDS: PANTOPRAZOLE 40MG TAB (PROTONIX) PO SCH ×2 (09:54→20:47)
[2020-03-19] MEDS ORDERED: TOLVAPTAN 15 MG TAB (SAMSCA) PO ONE (11:00)
--- NOTE | 2020-03-19 11:40 | IPNPDOC ---
PM&R Progress Note DATE OF SERVICE: Mar 18, 2020 Sr Risk Management Consultant Progress Note DATE OF ADMISSION: Mar 10, 2020 at 18:32 INPATIENT REHABILITATION ADMISSION DAY: # 8 DATE OF SERVICE: Mar 18, 2020 SUBJECTIVE: Patient is a 69-year-old female with CVA, dysphagia, chronic respiratory issues related to multipack year history of smoking, mild right hemiparesis, ASCVD with CAD, carotid stenosis, generalized pain. Patient reporting her legs improved since starting baclofen and arms are a little less sore since starting the cymbalta. However Sodium noted to drop from 133 to 123, possibly related to an SSRI effect or some other physiological impact, appreciate hospitalist service input. Spoke with and son who are interested in current plan and laboratory results. Assured that the liver functions were within normal limits. Speech-language therapy treatment, as noted during team meeting raised concern for possible worsening dysfunction, sounding wet, hoarse worsening voice. Modified barium swallow being organized for to steve. She does note regular bowel movements. REVIEW OF SYSTEMS: The following is a completed review of systems and has been reviewed. Review of systems otherwise unremarkable. PAIN: Patient self reports no pain EYES: No recent vision changes EARS, NOSE, & THROAT: No throat pain, +dysphagia CARDIOVASCULAR: Denies chest pain or palpitations PULMONARY: Denies shortness of breath, +cough persists an annoying, receiving regular, respiratory treatments GASTROINTESTINAL: Denies constipation/diarrhea GENITOURINARY: denies dysuria MUSCULOSKELETAL: right sided weakness NEUROLOGICAL:apraxia/dysmetria, right sided paresis HEMATOLOGICAL: denies easy bruising SKIN: denies rash PSYCHIATRIC: Unremarkable All other review of systems found to be negative. ALLERGIES: See Below MEDICATIONS: Reviewed, see below. PHYSICAL EXAMINATION: VITAL SIGNS: Please see below. GENERAL: Pleasant and cooperative. No acute distress. HEENT: PERRL. Extraocular movements intact. Clear conjunctiva CARDIOVASCULAR: Regular rate and rhythm. No murmurs, rubs, or gallops LUNGS: scattered rhonchi and wheezes. Both funes ABDOMEN: Soft, nontender, nondistended. Positive bowel sounds. Normal active bowel sounds NEUROLOGICAL: Alert and oriented times three. Cranial nerves II through XII grossly intact. Sensation grossly intact with extinction to tough on right side EXTREMITIES: 5\5 strength KARI/LE, 4/5 RUE, 5-\5 strength right lower extremity. SKIN: intact . Multiple ecchymoses noted ASSESSMENT:69-year-old F with past medical history of [place] s/p stent and CVA who presents status post right cerebellar and midbrain infarct PLAN: 1. Rehab- PT/OT advance gait and mobility, strengthen/stretch/maintain ROM all 4 limbs, ambulating with RW -NURSING SPECIALIST for dysphagia and cognition proceed with modified barium swallow and adjust dietary needs as indicated 2. Neuro- hx of CVA with right cerebellar midbrain infarct with right carotid artery stenosis- c/u ASA/Plavix, statin for secondary stroke prevention, tight BP control , -SNRI for motor recovery, meclizine and Zofran prn for possible vertigo/ nausea/vomiting due to stroke - f/u family, requesting follow-up with vascular surgery on discharge, regarding carotid issues. 3. Cardiac- hx of [place] s/p stenting, recent ECHO + for diastolic CHF, daily weights, on diuretics, will avoid fluid restriction for now while on dysphagia diet and monitor for fluid overload- medicine consulted to assist in overall management -1 st degree AVB with recent bradycardia, c/u to avoid beta-blockers -HTN c/u Cozaar/HCTZ, c/u hydralazine with holding parameters for elevated BPs 4. resp- monitor for infection, encourage incentive spirometry -current smoker, c/u duonebs and mucinex-cough c/u to improve repeat chest x-ray pending 5. GI ppx- protonix 6. DVT ppx- lovenox, teds 7. Pain- tylenol prn -patient reporting bilateral leg spasms since stroke, c/u baclofen -Continue observe response to Cymbalta to help with bilateral elbow pain/ UE pain 8. - urinary retention in setting of suspected neurogenic bladder-gradually improving, c/u flomax, UA negative . fewer accidents, residual volumes decreased to under 200. Continue bladder training 8. Dispo- TBD family would like to bring her home if possible. OBJECTIVE: VITAL SIGNS: Please see below. PHYSICAL EXAMINATION: GENERAL: Cachectic, well developed, sitting up in bed, no acute distress. HEENT: Normocephalic, atraumatic. No facial droop. Poor dentition, missing teeth. PERRL, EOMI. CARDIOVASCULAR: S1, S2, irregular rate. No lower limb edema or calf tenderness. LUNGS: Decreased breath sounds, coarse throughout. ABDOMEN: Soft, nontender, nondistended. Normoactive bowel sounds throughout. MUSCULOSKELETAL: MMT: /5 strength proximally bilateral shoulder abduction, forward flexion and bilateral hip flexion. /5 strength bilateral elbow flexion, knee flexion, /5 bilateral elbow extension and knee extension. /5 director of channel marketing, dorsiflexion, plantar flexion. NEUROLOGICAL: Alert and oriented times three. Answers all question appropriately. SKIN: . LABORATORY DATA: Reviewed. Please see below. MICROBIOLOGY: Please see below. TIME SPENT: Chart Review, examination and documentation 40 minutes. Allergies Coded Allergies: No Known Allergies (Verified Allergy, Unknown, 03/05/20) Vital Signs Vital Signs Date Time Temp Pulse Resp B/P (MAP) Pulse Ox O2 Delivery O2 Flow Rate FiO2 03/18/20 14:16 72 162/88 03/18/20 14:00 97.8 18 95 Room Air Laboratory Data CBC/BMP Laboratory Tests 03/18/20 13:15 Labs 24H Laboratory Tests 2 03/18/20 13:15: Anion Gap 10, Glomerular Filtration Rate > 60.0, Calcium Level 8.2L 03/18/20 16:42: Osmolality 253L, Uric Acid 5.3, Thyroid Stimulating Hormone (TSH) 4.070H Current Medications Current Medications Current Medications Medications (Trade) Dose Ordered Sig/Dianna Route PRN Reason Start Time Stop Time Status Last Admin Dose Admin Acetaminophen (Tylenol Tab) 650 mg Q4HP PRN PO fever/MILD PAIN (PS 1-4) 03/10/20 17:30 03/17/20 19:43 Albuterol/ Ipratropium (Duoneb (Ipr 0.5mg/Alb 2.5mg)) 3 ml RQID NEB 03/10/20 20:00 03/18/20 14:26 Amlodipine Besylate (Norvasc) 5 mg BID PO 03/18/20 21:00 Aspirin (Ecotrin) 81 mg DAILY PO 03/11/20 09:00 03/18/20 08:19 Atorvastatin Calcium (Lipitor) 80 mg QHS PO 03/10/20 21:00 03/17/20 19:42 Baclofen (Lioresal) 5 mg TID PO 03/12/20 12:00 03/18/20 17:35 Bisacodyl (Dulcolax Suppository) 10 mg DAILYPRN PRN [place] CONSTIPATION 03/10/20 17:30 Clopidogrel Bisulfate (PLAVix) 75 mg DAILY PO 03/11/20 09:00 03/18/20 08:19 Docusate Sodium (Colace) 100 mg BID PO 03/10/20 21:00 03/16/20 09:49 Duloxetine HCl (Cymbalta) 20 mg DAILY PO 03/14/20 09:00 03/18/20 08:19 Enoxaparin Sodium (Lovenox) 40 mg DAILY SC 03/11/20 09:00 03/18/20 08:20 Fluoxetine HCl (PROzac) 20 mg DAILY PO 03/11/20 09:00 03/13/20 16:25 DC 03/13/20 08:53 Guaifenesin (Robitussin Tab) 400 mg TID PO 03/10/20 21:00 03/18/20 17:35 Hydralazine HCl (Apresoline) 25 mg Q6H PO 03/11/20 00:00 03/18/20 12:57 DC 03/18/20 12:51 Hydralazine HCl (Apresoline) 30 mg Q6HP PRN PO sbp>150 or dbp>90 03/18/20 13:00 Hydrochlorothiazide (Hydrodiuril) 12.5 mg DAILY PO 03/11/20 09:00 03/18/20 12:57 DC 03/18/20 08:19 Isosorbide Dinitrate (Isordil) 20 mg Q6H PO 03/18/20 18:00 Losartan Potassium (Cozaar) 25 mg BID PO 03/18/20 21:00 Losartan Potassium (Cozaar) 25 mg DAILY PO 03/11/20 09:00 03/18/20 12:58 DC 03/18/20 08:20 Magnesium Hydroxide (Milk Of Magnesia) 30 ml DAILYPRN PRN PO CONSTIPATION 03/10/20 17:30 Meclizine HCl (Antivert) 12.5 mg TIDP PRN PO DIZZINESS 03/10/20 17:30 Menthol/Methyl Salicylate (Bengay Cream) APPLY TO BILATERAL UP... BID TOP 03/13/20 09:00 03/13/20 15:35 DC Ondansetron HCl (Zofran Odt) 4 mg Q4HP PRN PO NAUSEA OR VOMITING 03/10/20 17:30 Pantoprazole Sodium (Protonix) 40 mg BID PO 03/10/20 21:00 03/18/20 08:19 Senna (Senokot) 1 tab QHS PO 03/10/20 21:00 03/14/20 21:37 Tamsulosin HCl (Flomax) 0.4 mg QHS PO 03/11/20 21:00 03/14/20 14:21 DC 03/13/20 20:12 Tamsulosin HCl (Flomax) 0.8 mg QHS PO 03/14/20 21:00 03/17/20 19:42 MAI NGUYEN MD Mar 18, 2020 18:00
--- NOTE | 2020-03-19 11:52 | IPNPDOC ---
PM&R Progress Note DATE OF SERVICE: Mar 19, 2020 Mica Plate Layer Progress Note DATE OF ADMISSION: Mar 10, 2020 at 18:32 INPATIENT REHABILITATION ADMISSION DAY: #[9] DATE OF SERVICE: Mar 19, 2020 SUBJECTIVE: Patient is a 69-year-old female with CVA, dysphagia, chronic respiratory issues related to multipack year history of smoking, mild right hemiparesis, ASCVD with CAD, carotid stenosis, generalized pain. Patient reporting some improvement in pain with therapy and since starting baclofen and Cymbalta. However Sodium noted to drop from 133 to 123 yesterday, bumped slightly to 125 today. Discussed case with hospitalist, fluid restrictions and additional salt being recommended. This could possibly related to an SSRI effect or some other physiological impact, appreciate hospitalist service input. Speech-language therapy treatment, as noted during team meeting raised concern for possible worsening dysfunction, sounding wet, hoarse worsening voice. Modified barium swallow being organized for today. She does note regular bowel movements and seems to be in less distress today. REVIEW OF SYSTEMS: The following is a completed review of systems and has been reviewed. Review of systems otherwise unremarkable. PAIN: Patient self reports no pain EYES: No recent vision changes EARS, NOSE, & THROAT: No throat pain, +dysphagia CARDIOVASCULAR: Denies chest pain or palpitations PULMONARY: Denies shortness of breath, +cough persists an annoying, receiving regular, respiratory treatments GASTROINTESTINAL: Denies constipation/diarrhea GENITOURINARY: denies dysuria MUSCULOSKELETAL: right sided weakness NEUROLOGICAL:apraxia/dysmetria, right sided paresis HEMATOLOGICAL: negative SKIN: denies rash PSYCHIATRIC: Unremarkable All other review of systems found to be negative. ALLERGIES: See Below MEDICATIONS: Reviewed, see below. PHYSICAL EXAMINATION: VITAL SIGNS: Please see below. GENERAL: Pleasant and cooperative. No acute distress. HEENT: PERRL. Extraocular movements intact. Clear conjunctiva CARDIOVASCULAR: Regular rate and rhythm. No murmurs, rubs, or gallops LUNGS: fewer rhonchi and wheezes. ABDOMEN: Soft, nontender, nondistended. Positive bowel sounds. Normal active bowel sounds NEUROLOGICAL: Alert and oriented times three. Cranial nerves II through XII grossly intact. Sensation grossly intact EXTREMITIES: 5\5 strength KARI/LE, 4/5 RUE, 5-\5 strength right lower extremity. No calf tenderness, Ubaldo's negative. SKIN: intact . Multiple ecchymoses noted ASSESSMENT:69-year-old F with past medical history of [place] s/p stent and CVA with mild right hemiparesis, dysphagia, who presents status post right cerebellar and midbrain infarct PLAN: 1. Rehab- PT/OT advance gait and mobility, strengthen/stretch/maintain ROM all 4 limbs, ambulating with RW -HOMOGENIZER OPERATOR for dysphagia and cognition proceed with modified barium swallow today, family education and adjust dietary needs as indicated 2. Neuro- hx of CVA with right cerebellar midbrain infarct with right carotid artery stenosis- c/u ASA/Plavix, statin for secondary stroke prevention, tight BP control , -SNRI for motor recovery, meclizine and Zofran prn for possible vertigo/nausea/vomiting due to stroke - f/u family, requesting follow-up with vascular surgery on discharge, regarding carotid issues. 3. Cardiac- hx of [place] s/p stenting, recent ECHO + for diastolic CHF, daily weights, on diuretics, will avoid fluid restriction for now while on dysphagia diet and monitor for fluid overload- medicine consulted to assist in overall management -1 st degree AVB with recent bradycardia, c/u to avoid beta-blockers -HTN c/u Cozaar/HCTZ, c/u hydralazine with holding parameters for elevated BPs 4. resp- monitor for infection, encourage incentive spirometry -current smoker, c/u duonebs and mucinex-cough c/u to improve repeat chest x-ray pending 5. GI ppx- protonix 6. DVT ppx- lovenox, teds 7. Pain- tylenol prn -patient reporting bilateral leg spasms since stroke, c/u baclofen -Continue observe response to Cymbalta to help with bilateral elbow pain/ UE pain 8. - urinary retention in setting of suspected neurogenic bladder-gradually improving, c/u flomax, UA negative . fewer accidents, residual volumes decreased to under 200. Continue bladder training 8. Dispo- TBD family would like to bring her home if possible. TIME SPENT: Chart Review, examination and documentation 40 minutes. Allergies Coded Allergies: No Known Allergies (Verified Allergy, Unknown, 03/05/20) Vital Signs Vital Signs Date Time Temp Pulse Resp B/P (MAP) Pulse Ox O2 Delivery O2 Flow Rate FiO2 03/19/20 09:54 138/72 03/19/20 05:48 98.0 86 18 97 Room Air Laboratory Data CBC/BMP Laboratory Tests 03/18/20 13:15 03/19/20 07:11 Labs 24H Laboratory Tests 2 03/18/20 13:15: Anion Gap 10, Glomerular Filtration Rate > 60.0, Calcium Level 8.2L 03/18/20 16:42: Osmolality 253L, Uric Acid 5.3, Thyroid Stimulating Hormone (TSH) 4.070H 03/18/20 18:07: Urine Random Osmolality 439L, Urine Random Sodium 47 03/19/20 07:11: Anion Gap 10, Glomerular Filtration Rate 49.0, Calcium Level 8.4L Current Medications Current Medications Current Medications Medications (Trade) Dose Ordered Sig/Dianna Route PRN Reason Start Time Stop Time Status Last Admin Dose Admin Acetaminophen (Tylenol Tab) 650 mg Q4HP PRN PO fever/MILD PAIN (PS 1-4) 03/10/20 17:30 03/17/20 19:43 Albuterol/ Ipratropium (Duoneb (Ipr 0.5mg/Alb 2.5mg)) 3 ml RQID NEB 03/10/20 20:00 03/19/20 07:59 Amlodipine Besylate (Norvasc) 5 mg BID PO 03/18/20 21:00 03/19/20 09:54 Aspirin (Ecotrin) 81 mg DAILY PO 03/11/20 09:00 03/19/20 09:54 Atorvastatin Calcium (Lipitor) 80 mg QHS PO 03/10/20 21:00 03/18/20 20:38 Baclofen (Lioresal) 5 mg TID PO 03/12/20 12:00 03/19/20 09:53 Bisacodyl (Dulcolax Suppository) 10 mg DAILYPRN PRN [place] CONSTIPATION 03/10/20 17:30 Clopidogrel Bisulfate (PLAVix) 75 mg DAILY PO 03/11/20 09:00 03/19/20 09:54 Docusate Sodium (Colace) 100 mg BID PO 03/10/20 21:00 03/19/20 09:53 Duloxetine HCl (Cymbalta) 20 mg DAILY PO 03/14/20 09:00 03/19/20 09:53 Enoxaparin Sodium (Lovenox) 40 mg DAILY SC 03/11/20 09:00 03/19/20 09:53 Fluoxetine HCl (PROzac) 20 mg DAILY PO 03/11/20 09:00 03/13/20 16:25 DC 03/13/20 08:53 Guaifenesin (Robitussin Tab) 400 mg TID PO 03/10/20 21:00 03/19/20 09:53 Hydralazine HCl (Apresoline) 25 mg Q6H PO 03/11/20 00:00 03/18/20 12:57 DC 03/18/20 12:51 Hydralazine HCl (Apresoline) 30 mg Q6HP PRN PO sbp>150 or dbp>90 03/18/20 13:00 Hydrochlorothiazide (Hydrodiuril) 12.5 mg DAILY PO 03/11/20 09:00 03/18/20 12:57 DC 03/18/20 08:19 Isosorbide Dinitrate (Isordil) 20 mg Q6H PO 03/18/20 18:00 03/19/20 05:29 Levothyroxine Sodium (Synthroid) 12.5 mcg DAILY@06 PO 03/18/20 18:45 03/19/20 05:29 Losartan Potassium (Cozaar) 25 mg BID PO 03/18/20 21:00 03/18/20 20:42 Losartan Potassium (Cozaar) 25 mg DAILY PO 03/11/20 09:00 03/18/20 12:58 DC 03/18/20 08:20 Magnesium Hydroxide (Milk Of Magnesia) 30 ml DAILYPRN PRN PO CONSTIPATION 03/10/20 17:30 Meclizine HCl (Antivert) 12.5 mg TIDP PRN PO DIZZINESS 03/10/20 17:30 Menthol/Methyl Salicylate (Bengay Cream) APPLY TO BILATERAL UP... BID TOP 03/13/20 09:00 03/13/20 15:35 DC Ondansetron HCl (Zofran Odt) 4 mg Q4HP PRN PO NAUSEA OR VOMITING 03/10/20 17:30 Pantoprazole Sodium (Protonix) 40 mg BID PO 03/10/20 21:00 03/19/20 09:54 Senna (Senokot) 1 tab QHS PO 03/10/20 21:00 03/14/20 21:37 Tamsulosin HCl (Flomax) 0.4 mg QHS PO 03/11/20 21:00 03/14/20 14:21 DC 03/13/20 20:12 Tamsulosin HCl (Flomax) 0.8 mg QHS PO 03/14/20 21:00 03/18/20 20:43 MAI NGUYEN MD Mar 19, 2020 11:43
[2020-03-19 12:39] LABS: CALCIUM LEVEL 8.6 MG/DL (8.8-10.2); CREATININE FOR GFR 1.29 MG/DL (0.55-1.30); GLOMERULAR FILTRATION RATE 43.8 (>45); POTASSIUM SERUM 3.1 MEQ/L (3.5-5.1)
[2020-03-19] MEDS ORDERED: VARIBAR NECTAR 40% w/v 240ML SUSP BTL As Ordered ONE (13:21)
[2020-03-19] MEDS ORDERED: E-Z-PAQUE 96% w/w SUSP 176GM BTL As Ordered ONE (13:21)
[2020-03-19] MEDS ORDERED: VARIBAR PUDDING 40% w/v 230ML TUBE As Ordered ONE (13:21)
[2020-03-19 14:00] VITALS: BP 169/83
[2020-03-19] MEDS ORDERED: POTASSIUM CHLORIDE 10 MEQ SR TABLET PO ONE (15:15)
[2020-03-19] MEDS: ACETAMINOPHEN TAB 650MG DOSE (2X325MG) PO PRN (15:18)
[2020-03-19] MEDS: SODIUM CHLORIDE 1 GM TAB PO SCH (17:54)
[2020-03-19 18:40] LABS: CALCIUM LEVEL 8.5 MG/DL (8.8-10.2); CREATININE FOR GFR 1.08 MG/DL (0.55-1.30); GLOMERULAR FILTRATION RATE 53.7 (>45); POTASSIUM SERUM 3.9 MEQ/L (3.5-5.1)
[2020-03-19 20:00] VITALS: BP 160/80
[2020-03-19] MEDS: TAMSULOSIN 0.4 MG CAP PO SCH (20:48)
[2020-03-19] MEDS: SENNA 8.6 MG TAB (SENOKOT) PO SCH (20:48)
[2020-03-19] MEDS: ATORVASTATIN 20 MG TAB PO SCH (20:48)
[2020-03-20] MEDS: ISOSORBIDE DIN. (ISORDIL) 20 MG TAB PO SCH
[2020-03-20 01:43] LABS: CALCIUM LEVEL 8.6 MG/DL (8.8-10.2); CREATININE FOR GFR 1.18 MG/DL (0.55-1.30); GLOMERULAR FILTRATION RATE 48.5 (>45); POTASSIUM SERUM 3.9 MEQ/L (3.5-5.1)
[2020-03-20] MEDS ORDERED: amLODIPine 10 MG TAB PO ONE (05:45)
[2020-03-20 06:11] VITALS: BP 152/64
[2020-03-20] MEDS: LEVOTHYROXINE 12.5MCG PER 1/2 TAB (0.0125MG) PO SCH (06:27)
[2020-03-20] MEDS: IPRATROPIUM 0.5MG/ALBUTEROL 2.5MG INH SOL UD 3ML (DUONEB) NEB SCH ×4 (07:31→19:43)
[2020-03-20] MEDS ORDERED: CALCIUM CARBONATE 500 MG CHEW U/D PO ONE ×2 (07:45→21:00)
[2020-03-20 07:59] LABS: CALCIUM LEVEL 8.6 MG/DL (8.8-10.2); CREATININE FOR GFR 1.23 MG/DL (0.55-1.30); GLOMERULAR FILTRATION RATE 46.2 (>45); POTASSIUM SERUM 4.3 MEQ/L (3.5-5.1)
[2020-03-20] MEDS ORDERED: CALCIUM CARBONATE 500 MG CHEW U/D PO SCH (08:00)
[2020-03-20] MEDS: SODIUM CHLORIDE 1 GM TAB PO SCH ×3 (08:01→17:35)
[2020-03-20] MEDS: ASPIRIN 81 MG ENTERIC TAB PO SCH (08:01)
[2020-03-20] MEDS: DULoxetine 20 MG CAP (CYMBALTA) PO SCH (08:01)
[2020-03-20] MEDS: guaiFENesin 200 MG TAB PO SCH ×3 (08:01→20:07)
[2020-03-20] MEDS: PANTOPRAZOLE 40MG TAB (PROTONIX) PO SCH ×2 (08:01→20:07)
[2020-03-20] MEDS: CLOPIDOGREL 75 MG TAB PO SCH (08:01)
[2020-03-20] MEDS: DOCUSATE SODIUM 100 MG CAP PO SCH ×2 (08:01→20:07)
[2020-03-20] MEDS: BACLOFEN 5MG PER 1/2 TABLET PO SCH ×3 (08:01→20:07)
[2020-03-20] MEDS: LOSARTAN 50MG TABLET PO SCH (08:02)
[2020-03-20] MEDS: ENOXAPARIN 40MG/0.4ML SYRINGE (J1650 PER 10MG) SC SCH (08:02)
[2020-03-20] MEDS: REMEDY PHYTOPLEX Z-GUARD PASTE 113GM TUBE (FROM STOREROOM PRODUCT) TOP SCH ×3 (08:02→19:59)
[2020-03-20] MEDS: ISOSORBIDE DIN. (ISORDIL) 30 MG TAB PO SCH ×2 (09:00→20:36)
--- NOTE | 2020-03-20 11:35 | IPNPDOC ---
PM&R Progress Note DATE OF SERVICE: Mar 20, 2020 Sock Folder Progress Note DATE OF ADMISSION: Mar 10, 2020 at 18:32 INPATIENT REHABILITATION ADMISSION DAY: #[10] DATE OF SERVICE: Mar 20, 2020 SUBJECTIVE: Patient is a 69-year-old female with CVA, dysphagia, chronic respiratory issues related to multipack year history of smoking, mild right hemiparesis, ASCVD with CAD, carotid stenosis, generalized pain. Patient reporting some improvement in pain with therapy and since starting baclofen and Cymbalta. Hyponatremia below 123 is now improving to apparent baseline at 133. Appreciate assistance from hospitalist, fluid restrictions and additional salt seemed to have helped stabilized and she is clear and there able to cooperate today. Modified barium swallow noted ability to manage cookie and overall reasonable swallowing capability, however, significant reflux, also noted. Education counseling provided to the patient regarding precautions to keep head elevated at 90 and take care with eating slowly interspersed with ingestion of fluids to reduce risk of further vocal cord irritation and possible aspiration. She does note regular bowel movements and less complaint of cough today, although still notes wheezing. FUNCTIONAL STATUS: Improving mobility, transfers with standby to contact guard assistance and regular cues. REVIEW OF SYSTEMS: The following is a completed review of systems and has been reviewed. Review of systems otherwise unremarkable. PAIN: Patient self reports no pain EYES: No recent vision changes EARS, NOSE, & THROAT: No throat pain, +dysphagia CARDIOVASCULAR: Denies chest pain or palpitations PULMONARY: Denies shortness of breath, +cough persists an annoying, receiving regular, respiratory treatments GASTROINTESTINAL: Denies constipation/diarrhea GENITOURINARY: denies dysuria MUSCULOSKELETAL: right sided weakness, notes tender "knot", area of tender ecchymosis posterior right calf , possibly hip leg on something NEUROLOGICAL:apraxia/dysmetria, right sided paresis HEMATOLOGICAL: negative SKIN: denies rash PSYCHIATRIC: Unremarkable All other review of systems found to be negative. ALLERGIES: See Below MEDICATIONS: Reviewed, see below. PHYSICAL EXAMINATION: VITAL SIGNS: Please see below. GENERAL: Pleasant and cooperative. No acute distress. HEENT: PERRL. Extraocular movements intact. Clear conjunctiva, no adenopathy or thyromegaly. However, voice very hoarse. CARDIOVASCULAR: Regular rate and rhythm. II/ SM LUNGS: fewer rhonchi and wheezes. ABDOMEN: Soft, nontender, nondistended. Positive bowel sounds. Normal active bowel sounds NEUROLOGICAL: Alert and oriented times three. Cranial nerves II through XII grossly intact. Sensation grossly intact EXTREMITIES: 5\\5 strength KARI/LE, 4/5 RUE, 5-\\5 strength right lower extremity. No calf tenderness, approximately 1.5 cm tender nodular region, proximal posterior right calf surrounding ecchymoses noted, Ubaldo's negative, distal pulses intact. No peripheral edema. SKIN: intact . Multiple ecchymoses noted over all 4 extremities. ASSESSMENT:69-year-old F with past medical history of [place] s/p stent and CVA with mild right hemiparesis, dysphagia, who presents status post right cerebellar and midbrain infarct, cleared swallowing study. However, at risk for aspiration, further vocal cord irritation from significant GERD. PLAN: 1. Rehab- PT/OT advance gait and mobility, strengthen/stretch/maintain ROM all 4 limbs, ambulating with RW, contact-guard assistance. 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 Neuro- hx of CVA with right cerebellar midbrain infarct with right carotid a rtery stenosis- c/u ASA/Plavix, statin for secondary stroke prevention, tight BP control , -SNRI for motor recovery, meclizine and Zofran prn for possible vertigo/nausea/vomiting due to stroke - f/u family, requesting follow-up with vascular surgery on discharge, regarding carotid issues, probably also will need ENT follow-up 3. Cardiac- hx of [place] s/p stenting, recent ECHO + for diastolic CHF, daily weights, on diuretics, will avoid fluid restriction for now while on dysphagia diet and monitor for fluid overload- medicine consulted to assist in overall management -1 st degree AVB with recent bradycardia, c/u to avoid beta-blockers -HTN c/u Cozaar/HCTZ, c/u hydralazine with holding parameters for elevated BPs 4. resp- monitor for infection, encourage incentive spirometry -current smoker, c/u duonebs and mucinex-cough c/u to improve repeat chest x-ray pending 5. GI ppx- protonix 6. DVT ppx- lovenox, teds 7. Pain- tylenol prn -patient reporting bilateral leg spasms since stroke, c/u baclofen -Continue observe response to Cymbalta to help with bilateral elbow pain/ UE pain 8. - urinary retention in setting of suspected neurogenic bladder-gradually improving, c/u flomax, UA negative . fewer accidents, residual volumes decreased to under 200. Continue bladder training 8. Dispo- TBD family would like to bring her home if possible. Allergies Coded Allergies: No Known Allergies (Verified Allergy, Unknown, 03/05/20) Vital Signs Vital Signs Date Time Temp Pulse Resp B/P (MAP) Pulse Ox O2 Delivery O2 Flow Rate FiO2 03/20/20 09:00 132/68 03/20/20 06:27 83 03/20/20 06:11 98.1 20 90 Room Air Laboratory Data CBC/BMP Laboratory Tests 03/19/20 11:48 03/19/20 17:51 03/20/20 01:00 03/20/20 07:17 Labs 24H Laboratory Tests 2 03/19/20 11:48: Anion Gap 8, Glomerular Filtration Rate 43.8L, Calcium Level 8.6L 03/19/20 17:51: Anion Gap 8, Glomerular Filtration Rate 53.7, Calcium Level 8.5L 03/20/20 01:00: Anion Gap 6L, Glomerular Filtration Rate 48.5, Calcium Level 8.6L 03/20/20 07:17: Anion Gap 8, Glomerular Filtration Rate 46.2, Calcium Level 8.6L Current Medications Current Medications Current Medications Medications (Trade) Dose Ordered Sig/Dianna Route PRN Reason Start Time Stop Time Status Last Admin Dose Admin Acetaminophen (Tylenol Tab) 650 mg Q4HP PRN PO fever/MILD PAIN (PS 1-4) 03/10/20 17:30 03/19/20 15:18 Albuterol/ Ipratropium (Duoneb (Ipr 0.5mg/Alb 2.5mg)) 3 ml RQID NEB 03/10/20 20:00 03/20/20 07:31 Amlodipine Besylate (Norvasc) 5 mg BID PO 03/18/20 21:00 03/20/20 05:38 DC 03/19/20 20:47 Amlodipine Besylate (Norvasc) 10 mg DAILY PO 03/21/20 09:00 Aspirin (Ecotrin) 81 mg DAILY PO 03/11/20 09:00 03/20/20 08:01 Atorvastatin Calcium (Lipitor) 80 mg QHS PO 03/10/20 21:00 03/19/20 20:48 Baclofen (Lioresal) 5 mg TID PO 03/12/20 12:00 03/20/20 08:01 Bisacodyl (Dulcolax Suppository) 10 mg DAILYPRN PRN MA CONSTIPATION 03/10/20 17:30 Calcium Carbonate (Tums) 500 mg WM PO 03/20/20 08:00 03/20/20 07:45 DC Clopidogrel Bisulfate (PLAVix) 75 mg DAILY PO 03/11/20 09:00 03/20/20 08:01 Docusate Sodium (Colace) 100 mg BID PO 03/10/20 21:00 03/20/20 08:01 Duloxetine HCl (Cymbalta) 20 mg DAILY PO 03/14/20 09:00 03/20/20 08:01 Enoxaparin Sodium (Lovenox) 40 mg DAILY SC 03/11/20 09:00 03/20/20 08:02 Fluoxetine HCl (PROzac) 20 mg DAILY PO 03/11/20 09:00 03/13/20 16:25 DC 03/13/20 08:53 Guaifenesin (Robitussin Tab) 400 mg TID PO 03/10/20 21:00 03/20/20 08:01 Hydralazine HCl (Apresoline) 25 mg Q6H PO 03/11/20 00:00 03/18/20 12:57 DC 03/18/20 12:51 Hydralazine HCl (Apresoline) 30 mg Q6HP PRN PO sbp>150 or dbp>90 03/18/20 13:00 03/20/20 05:38 DC Hydrochlorothiazide (Hydrodiuril) 12.5 mg DAILY PO 03/11/20 09:00 03/18/20 12:57 DC 03/18/20 08:19 Isosorbide Dinitrate (Isordil) 20 mg Q6H PO 03/18/20 18:00 03/20/20 05:38 DC 03/19/20 05:29 Isosorbide Dinitrate (Isordil) 30 mg BID PO 03/20/20 09:00 Levothyroxine Sodium (Synthroid) 12.5 mcg DAILY@06 PO 03/18/20 18:45 03/20/20 06:27 Losartan Potassium (Cozaar) 25 mg BID PO 03/18/20 21:00 03/20/20 05:38 DC 03/19/20 20:46 Losartan Potassium (Cozaar) 25 mg DAILY PO 03/11/20 09:00 03/18/20 12:58 DC 03/18/20 08:20 Losartan Potassium (Cozaar) 50 mg QAM PO 03/20/20 09:00 03/20/20 08:02 Magnesium Hydroxide (Milk Of Magnesia) 30 ml DAILYPRN PRN PO CONSTIPATION 03/10/20 17:30 Meclizine HCl (Antivert) 12.5 mg TIDP PRN PO DIZZINESS 03/10/20 17:30 Menthol/Methyl Salicylate (Bengay Cream) APPLY TO BILATERAL UP... BID TOP 03/13/20 09:00 03/13/20 15:35 DC Ondansetron HCl (Zofran Odt) 4 mg Q4HP PRN PO NAUSEA OR VOMITING 03/10/20 17:30 Pantoprazole Sodium (Protonix) 40 mg BID PO 03/10/20 21:00 03/20/20 08:01 Senna (Senokot) 1 tab QHS PO 03/10/20 21:00 03/14/20 21:37 Sodium Chloride (Sodium Chloride) 1 gm WM PO 03/19/20 18:00 03/20/20 08:01 Tamsulosin HCl (Flomax) 0.4 mg QHS PO 03/11/20 21:00 03/14/20 14:21 DC 03/13/20 20:12 Tamsulosin HCl (Flomax) 0.8 mg QHS PO 03/14/20 21:00 03/19/20 20:48 MAI NGUYEN MD Mar 20, 2020 11:35
[2020-03-20 12:35] LABS: CREATININE FOR GFR 1.17 MG/DL (0.55-1.30); POTASSIUM SERUM 4.3 MEQ/L (3.5-5.1)
[2020-03-20 14:00] VITALS: BP 116/62
[2020-03-20] MEDS: SENNA 8.6 MG TAB (SENOKOT) PO SCH (19:58)
[2020-03-20 20:00] VITALS: BP 156/82
[2020-03-20] MEDS: ACETAMINOPHEN TAB 650MG DOSE (2X325MG) PO PRN (20:06)
[2020-03-20] MEDS: TAMSULOSIN 0.4 MG CAP PO SCH (20:07)
[2020-03-20] MEDS: ATORVASTATIN 20 MG TAB PO SCH (20:07)
[2020-03-21] VITALS (7 sets, daily range): BP systolic 98–170; BP diastolic 57–90
[2020-03-21] MEDS: LEVOTHYROXINE 12.5MCG PER 1/2 TAB (0.0125MG) PO SCH (05:57)
[2020-03-21] MEDS: IPRATROPIUM 0.5MG/ALBUTEROL 2.5MG INH SOL UD 3ML (DUONEB) NEB SCH ×4 (07:13→20:03)
[2020-03-21 08:45] LABS: CREATININE FOR GFR 1.07 MG/DL (0.55-1.30); GLOMERULAR FILTRATION RATE 54.3 (>45); POTASSIUM SERUM 4.2 MEQ/L (3.5-5.1)
[2020-03-21] MEDS: amLODIPine 10 MG TAB PO SCH (09:00)
[2020-03-21] MEDS: LOSARTAN 50MG TABLET PO SCH (09:00)
[2020-03-21] MEDS: REMEDY PHYTOPLEX Z-GUARD PASTE 113GM TUBE (FROM STOREROOM PRODUCT) TOP SCH ×3 (09:00→20:33)
[2020-03-21] MEDS: ISOSORBIDE DIN. (ISORDIL) 30 MG TAB PO SCH ×2 (09:00→20:33)
[2020-03-21] MEDS: ENOXAPARIN 40MG/0.4ML SYRINGE (J1650 PER 10MG) SC SCH (09:18)
[2020-03-21] MEDS: ASPIRIN 81 MG ENTERIC TAB PO SCH (09:18)
[2020-03-21] MEDS: BACLOFEN 5MG PER 1/2 TABLET PO SCH ×3 (09:18→20:32)
[2020-03-21] MEDS: PANTOPRAZOLE 40MG TAB (PROTONIX) PO SCH ×2 (09:18→20:32)
[2020-03-21] MEDS: DOCUSATE SODIUM 100 MG CAP PO SCH ×2 (09:18→20:32)
[2020-03-21] MEDS: SODIUM CHLORIDE 1 GM TAB PO SCH ×3 (09:18→17:30)
[2020-03-21] MEDS: DULoxetine 20 MG CAP (CYMBALTA) PO SCH (09:19)
[2020-03-21] MEDS: CLOPIDOGREL 75 MG TAB PO SCH (09:19)
[2020-03-21] MEDS: guaiFENesin 200 MG TAB PO SCH ×3 (09:19→20:32)
--- NOTE | 2020-03-21 10:35 | IPNPDOC ---
PM&R Progress Note DATE OF SERVICE: Mar 21, 2020 Fermentation Engineer Progress Note DATE OF ADMISSION: Mar 10, 2020 at 18:32 DATE OF SERVICE: Mar 21, 2020 INPATIENT REHABILITATION ADMISSION DAY: #[11] Fermentation Engineer Progress Note SUBJECTIVE: Patient is a 69-year-old female with CVA, dysphagia, chronic respiratory issues related to multipack year history of smoking, mild right hemiparesis, ASCVD with CAD, carotid stenosis, generalized pain. Patient reporting some improvement in pain with therapy and since starting baclofen and Cymbalta. Hyponatremia below 123 is now improving to 136. Appreciate assistance from hospitalist, fluid restrictions and additional salt seemed to have helped stabilized and she is clearer and there able to cooperate today. Modified barium swallow noted ability to manage cookie and overall reasonable swallowing capability, however, significant reflux, also noted. Tums seem to be helping, slept well, voice less "wet" and hoarse this morning. Education counseling provided to the patient regarding precautions to keep head elevated at 90 and take care with eating slowly interspersed with ingestion of fluids to reduce risk of further vocal cord irritation and possible aspiration. She does note regular bowel movements and less complaint of cough today and less wheezing. Nursing notes finding of asymmetric blood pressure measurements both mechanically and manually, systolic 171 on the right, 121 on the left mechanically and 168 on the right, 90 on the left manually. FUNCTIONAL STATUS: Improving mobility, transfers with standby to contact guard assistance and regular cues. REVIEW OF SYSTEMS: The following is a completed review of systems and has been reviewed. Review of systems otherwise unremarkable. PAIN: Patient self reports no pain EYES: No recent vision changes EARS, NOSE, & THROAT: No throat pain, +dysphagia CARDIOVASCULAR: Denies chest pain or palpitations PULMONARY: Denies shortness of breath, +cough persists an annoying, receiving regular, respiratory treatments GASTROINTESTINAL: Denies constipation/diarrhea GENITOURINARY: denies dysuria MUSCULOSKELETAL: right sided weakness, notes tender "knot", area of tender ecchymosis posterior right calf , possibly hit her leg on something NEUROLOGICAL:apraxia/dysmetria, right sided paresis HEMATOLOGICAL: negative SKIN: denies rash PSYCHIATRIC: Unremarkable All other review of systems found to be negative. ALLERGIES: See Below MEDICATIONS: Reviewed, see below. PHYSICAL EXAMINATION: VITAL SIGNS: Please see below. GENERAL: Pleasant and cooperative. No acute distress. HEENT: PERRL. Extraocular movements intact. Clear conjunctiva, no adenopathy or thyromegaly. Voice less hoarse. CARDIOVASCULAR: Regular rate and rhythm. II/ SM LUNGS: fewer rhonchi and wheezes. ABDOMEN: Soft, nontender, nondistended. Positive bowel sounds. Normal active bowel sounds NEUROLOGICAL: Alert and oriented times three. Cranial nerves II through XII grossly intact. Sensation grossly intact EXTREMITIES: 5\\5 strength KARI/LE, 4/5 RUE, 5-\\5 strength right lower extremity. No deep calf tenderness, approximately 1.5 cm tender superficial nodular region, proximal posterior right calf surrounding ecchymoses noted, Ubaldo's negative, distal pulses intact. No peripheral edema. SKIN: intact . Multiple ecchymoses noted over all 4 extremities. ASSESSMENT:69-year-old F with past medical history of [place] s/p stent and CVA with mild right hemiparesis, dysphagia, who presents status post right cerebellar and midbrain infarct, cleared swallowing study. However, at risk for aspiration, further vocal cord irritation from significant GERD. Assymmetric blood pressures call for adjustment in assessment and planning for BP management, requesting hospitalist input. PLAN: 1. Rehab- PT/OT advance gait and mobility, strengthen/stretch/maintain ROM all 4 limbs, ambulating with RW, contact-guard assistance. 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 Neuro- hx of CVA with right cerebellar midbrain infarct with right carotid artery stenosis- c/u ASA/Plavix, statin for secondary stroke prevention, tight BP control , -SNRI for motor recovery, meclizine and Zofran prn for possible vertigo/nausea/vomiting due to stroke - f/u family, requesting follow-up with vascular surgery on discharge, regarding carotid issues, possible other vascular issues, son apparently has already arranged ENT follow-up. 3. Cardiac- hx of [place] s/p stenting, recent ECHO + for diastolic CHF, daily weights, on diuretics, continue to monitor for fluid overload- medicine consulted to assist in overall management -1 st degree AVB with recent b radycardia, c/u to avoid beta-blockers -HTN c/u Cozaar/HCTZ, c/u hydralazine with holding parameters for elevated BPs and low BPs must ensure optimal BP measurement and clinical response as part of targeted treatment. 4. resp- monitor for infection, encourage incentive spirometry -current smoker, c/u duonebs and mucinex-cough c/u to improve repeat chest x-ray pending 5. GI ppx- protonix 6. DVT ppx- lovenox, teds 7. Pain- tylenol prn -patient reporting bilateral leg spasms since stroke, c/u baclofen -Continue observe response to Cymbalta to help with bilateral elbow pain/ UE pain 8. - urinary retention in setting of suspected neurogenic bladder-gradually improving, c/u flomax, UA negative . fewer accidents, residual volumes decreased to under 200. Continue bladder training 8. Dispo- TBD family would like to bring her home if possible. Allergies Coded Allergies: No Known Allergies (Verified Allergy, Unknown, 03/05/20) Vital Signs Vital Signs Date Time Temp Pulse Resp B/P (MAP) Pulse Ox O2 Delivery O2 Flow Rate FiO2 03/21/20 05:56 97.5 76 20 119/68 (85) 93 Room Air Laboratory Data CBC/BMP Laboratory Tests 03/20/20 11:56 03/21/20 08:00 Labs 24H Laboratory Tests 2 03/20/20 11:56: Anion Gap 9, Glomerular Filtration Rate 49.0, Calcium Level 9.0 03/21/20 08:00: Anion Gap 8, Glomerular Filtration Rate 54.3, Calcium Level 9.0 Current Medications Current Medications Current Medications Medications (Trade) Dose Ordered Sig/Dianna Route PRN Reason Start Time Stop Time Status Last Admin Dose Admin Acetaminophen (Tylenol Tab) 650 mg Q4HP PRN PO fever/MILD PAIN (PS 1-4) 03/10/20 17:30 03/20/20 20:06 Albuterol/ Ipratropium (Duoneb (Ipr 0.5mg/Alb 2.5mg)) 3 ml RQID NEB 03/10/20 20:00 03/21/20 07:13 Amlodipine Besylate (Norvasc) 5 mg BID PO 03/18/20 21:00 03/20/20 05:38 DC 03/19/20 20:47 Amlodipine Besylate (Norvasc) 10 mg DAILY PO 03/21/20 09:00 Aspirin (Ecotrin) 81 mg DAILY PO 03/11/20 09:00 03/21/20 09:18 Atorvastatin Calcium (Lipitor) 80 mg QHS PO 03/10/20 21:00 03/20/20 20:07 Baclofen (Lioresal) 5 mg TID PO 03/12/20 12:00 03/21/20 09:18 Bisacodyl (Dulcolax Suppository) 10 mg DAILYPRN PRN [place] CONSTIPATION 03/10/20 17:30 Calcium Carbonate (Tums) 500 mg WM PO 03/20/20 08:00 03/20/20 07:45 DC Clopidogrel Bisulfate (PLAVix) 75 mg DAILY PO 03/11/20 09:00 03/21/20 09:19 Docusate Sodium (Colace) 100 mg BID PO 03/10/20 21:00 03/21/20 09:18 Duloxetine HCl (Cymbalta) 20 mg DAILY PO 03/14/20 09:00 03/21/20 09:19 Enoxaparin Sodium (Lovenox) 40 mg DAILY SC 03/11/20 09:00 03/21/20 09:18 Fluoxetine HCl (PROzac) 20 mg DAILY PO 03/11/20 09:00 03/13/20 16:25 DC 03/13/20 08:53 Guaifenesin (Robitussin Tab) 400 mg TID PO 03/10/20 21:00 03/21/20 09:19 Hydralazine HCl (Apresoline) 25 mg Q6H PO 03/11/20 00:00 03/18/20 12:57 DC 03/18/20 12:51 Hydralazine HCl (Apresoline) 30 mg Q6HP PRN PO sbp>150 or dbp>90 03/18/20 13:00 03/20/20 05:38 DC Hydrochlorothiazide (Hydrodiuril) 12.5 mg DAILY PO 03/11/20 09:00 03/18/20 12:57 DC 03/18/20 08:19 Isosorbide Dinitrate (Isordil) 20 mg Q6H PO 03/18/20 18:00 03/20/20 05:38 DC 03/19/20 05:29 Isosorbide Dinitrate (Isordil) 30 mg BID PO 03/20/20 09:00 03/20/20 20:36 Levothyroxine Sodium (Synthroid) 12.5 mcg DAILY@06 PO 03/18/20 18:45 03/21/20 05:57 Losartan Potassium (Cozaar) 25 mg BID PO 03/18/20 21:00 03/20/20 05:38 DC 03/19/20 20:46 Losartan Potassium (Cozaar) 25 mg DAILY PO 03/11/20 09:00 03/18/20 12:58 DC 03/18/20 08:20 Losartan Potassium (Cozaar) 50 mg QAM PO 03/20/20 09:00 03/20/20 08:02 Magnesium Hydroxide (Milk Of Magnesia) 30 ml DAILYPRN PRN PO CONSTIPATION 03/10/20 17:30 Meclizine HCl (Antivert) 12.5 mg TIDP PRN PO DIZZINESS 03/10/20 17:30 Menthol/Methyl Salicylate (Bengay Cream) APPLY TO BILATERAL UP... BID TOP 03/13/20 09:00 03/13/20 15:35 DC Ondansetron HCl (Zofran Odt) 4 mg Q4HP PRN PO NAUSEA OR VOMITING 03/10/20 17:30 Pantoprazole Sodium (Protonix) 40 mg BID PO 03/10/20 21:00 03/21/20 09:18 Senna (Senokot) 1 tab QHS PO 03/10/20 21:00 03/14/20 21:37 Sodium Chloride (Sodium Chloride) 1 gm WM PO 03/19/20 18:00 03/21/20 09:18 Tamsulosin HCl (Flomax) 0.4 mg QHS PO 03/11/20 21:00 03/14/20 14:21 DC 03/13/20 20:12 Tamsulosin HCl (Flomax) 0.8 mg QHS PO 03/14/20 21:00 03/20/20 20:07 MAI NGUYEN MD Mar 21, 2020 10:35
[2020-03-21] MEDS: ACETAMINOPHEN TAB 650MG DOSE (2X325MG) PO PRN (11:33)
[2020-03-21] MEDS: TAMSULOSIN 0.4 MG CAP PO SCH (20:32)
[2020-03-21] MEDS: SENNA 8.6 MG TAB (SENOKOT) PO SCH (20:33)
[2020-03-21] MEDS: ATORVASTATIN 20 MG TAB PO SCH (20:33)
[2020-03-22 05:04] VITALS: BP 122/78
[2020-03-22] MEDS: LEVOTHYROXINE 12.5MCG PER 1/2 TAB (0.0125MG) PO SCH (06:03)
[2020-03-22] MEDS: IPRATROPIUM 0.5MG/ALBUTEROL 2.5MG INH SOL UD 3ML (DUONEB) NEB SCH ×4 (07:25→19:18)
[2020-03-22] MEDS: DOCUSATE SODIUM 100 MG CAP PO SCH ×2 (08:45→20:49)
[2020-03-22] MEDS: CLOPIDOGREL 75 MG TAB PO SCH (08:45)
[2020-03-22] MEDS: BACLOFEN 5MG PER 1/2 TABLET PO SCH ×3 (08:45→20:49)
[2020-03-22] MEDS: DULoxetine 20 MG CAP (CYMBALTA) PO SCH (08:45)
[2020-03-22] MEDS: PANTOPRAZOLE 40MG TAB (PROTONIX) PO SCH ×2 (08:45→20:49)
[2020-03-22] MEDS: ASPIRIN 81 MG ENTERIC TAB PO SCH (08:46)
[2020-03-22] MEDS: SODIUM CHLORIDE 1 GM TAB PO SCH ×3 (08:46→17:22)
[2020-03-22] MEDS: guaiFENesin 200 MG TAB PO SCH (08:46)
[2020-03-22] MEDS: LOSARTAN 50MG TABLET PO SCH (08:46)
[2020-03-22] MEDS: amLODIPine 10 MG TAB PO SCH (08:47)
[2020-03-22] MEDS: ISOSORBIDE DIN. (ISORDIL) 30 MG TAB PO SCH ×2 (08:47→20:49)
[2020-03-22] MEDS: ENOXAPARIN 40MG/0.4ML SYRINGE (J1650 PER 10MG) SC SCH (08:48)
[2020-03-22] MEDS: REMEDY PHYTOPLEX Z-GUARD PASTE 113GM TUBE (FROM STOREROOM PRODUCT) TOP SCH ×3 (08:48→20:50)
[2020-03-22 14:00] VITALS: BP 107/65
[2020-03-22] MEDS: guaiFENesin SYRUP 200 MG/10 ML UDC PO SCH ×2 (16:19→20:50)
[2020-03-22 20:47] VITALS: BP 152/70
[2020-03-22] MEDS: TAMSULOSIN 0.4 MG CAP PO SCH (20:49)
[2020-03-22] MEDS: ATORVASTATIN 20 MG TAB PO SCH (20:49)
[2020-03-22] MEDS: SENNA 8.6 MG TAB (SENOKOT) PO SCH (20:50)
[2020-03-23 05:21] VITALS: BP 142/78
[2020-03-23] MEDS: LEVOTHYROXINE 12.5MCG PER 1/2 TAB (0.0125MG) PO SCH (05:43)
[2020-03-23] MEDS: IPRATROPIUM 0.5MG/ALBUTEROL 2.5MG INH SOL UD 3ML (DUONEB) NEB SCH ×4 (07:15→20:15)
[2020-03-23 08:00] VITALS: BP 132/78
[2020-03-23] MEDS: REMEDY PHYTOPLEX Z-GUARD PASTE 113GM TUBE (FROM STOREROOM PRODUCT) TOP SCH ×3 (09:00→21:00)
[2020-03-23] MEDS: ISOSORBIDE DIN. (ISORDIL) 30 MG TAB PO SCH ×2 (09:00→21:00)
[2020-03-23] MEDS: BACLOFEN 5MG PER 1/2 TABLET PO SCH ×3 (09:23→21:53)
[2020-03-23] MEDS: CLOPIDOGREL 75 MG TAB PO SCH (09:23)
[2020-03-23] MEDS: ENOXAPARIN 40MG/0.4ML SYRINGE (J1650 PER 10MG) SC SCH (09:23)
[2020-03-23] MEDS: guaiFENesin SYRUP 200 MG/10 ML UDC PO SCH ×3 (09:23→21:51)
[2020-03-23] MEDS: SODIUM CHLORIDE 1 GM TAB PO SCH ×3 (09:23→17:20)
[2020-03-23] MEDS: PANTOPRAZOLE 40MG TAB (PROTONIX) PO SCH ×2 (09:23→21:53)
[2020-03-23] MEDS: DOCUSATE SODIUM 100 MG CAP PO SCH ×2 (09:23→21:51)
[2020-03-23] MEDS: DULoxetine 20 MG CAP (CYMBALTA) PO SCH (09:23)
[2020-03-23] MEDS: ASPIRIN 81 MG ENTERIC TAB PO SCH (09:24)
[2020-03-23] MEDS: LOSARTAN 50MG TABLET PO SCH (09:30)
[2020-03-23] MEDS: amLODIPine 10 MG TAB PO SCH (09:31)
[2020-03-23 14:00] VITALS: BP 124/70
[2020-03-23 15:35] LABS: BLOOD UREA NITROGEN 18 MG/DL (7-18); CALCIUM LEVEL 8.3 MG/DL (8.8-10.2); CARBON DIOXIDE LEVEL 25 MEQ/L (21-32); CHLORIDE LEVEL 102 MEQ/L (98-107); CREATININE FOR GFR 0.97 MG/DL (0.55-1.30); GLOMERULAR FILTRATION RATE > 60.0 (>45); GLUCOSE, FASTING 94 MG/DL (70-100); POTASSIUM SERUM 3.6 MEQ/L (3.5-5.1); SODIUM LEVEL 135 MEQ/L (136-145)
[2020-03-23 20:00] VITALS: BP 133/76
[2020-03-23] MEDS: SENNA 8.6 MG TAB (SENOKOT) PO SCH (21:51)
[2020-03-23] MEDS: ACETAMINOPHEN TAB 650MG DOSE (2X325MG) PO PRN (21:51)
[2020-03-23] MEDS: ATORVASTATIN 20 MG TAB PO SCH (21:51)
[2020-03-23] MEDS: TAMSULOSIN 0.4 MG CAP PO SCH (21:52)
[2020-03-24 06:00] VITALS: BP 126/81
[2020-03-24] MEDS: LEVOTHYROXINE 12.5MCG PER 1/2 TAB (0.0125MG) PO SCH (06:14)
[2020-03-24] MEDS: IPRATROPIUM 0.5MG/ALBUTEROL 2.5MG INH SOL UD 3ML (DUONEB) NEB SCH ×4 (07:24→20:00)
[2020-03-24] MEDS: guaiFENesin SYRUP 200 MG/10 ML UDC PO SCH ×3 (08:55→20:21)
[2020-03-24] MEDS: SODIUM CHLORIDE 1 GM TAB PO SCH ×3 (08:55→17:20)
[2020-03-24] MEDS: ASPIRIN 81 MG ENTERIC TAB PO SCH (08:55)
[2020-03-24] MEDS: CLOPIDOGREL 75 MG TAB PO SCH (08:55)
[2020-03-24] MEDS: PANTOPRAZOLE 40MG TAB (PROTONIX) PO SCH ×2 (08:55→20:23)
[2020-03-24] MEDS: DOCUSATE SODIUM 100 MG CAP PO SCH ×2 (08:55→20:21)
[2020-03-24] MEDS: BACLOFEN 5MG PER 1/2 TABLET PO SCH ×3 (08:55→20:22)
[2020-03-24] MEDS: DULoxetine 20 MG CAP (CYMBALTA) PO SCH (08:56)
[2020-03-24] MEDS: ENOXAPARIN 40MG/0.4ML SYRINGE (J1650 PER 10MG) SC SCH (08:56)
[2020-03-24] MEDS: REMEDY PHYTOPLEX Z-GUARD PASTE 113GM TUBE (FROM STOREROOM PRODUCT) TOP SCH ×3 (08:56→20:48)
[2020-03-24] MEDS: amLODIPine 10 MG TAB PO SCH (09:00)
[2020-03-24] MEDS: LOSARTAN 50MG TABLET PO SCH (09:00)
[2020-03-24] MEDS: ISOSORBIDE DIN. (ISORDIL) 30 MG TAB PO SCH ×2 (09:00→20:22)
--- NOTE | 2020-03-24 09:23 | REP ---
COOKIE SWALLOW This procedure was performed by LISA Abbasi, under the direct supervision of Dr. Terrazas. . The procedure was performed with Kylah Corbin from speech pathology present. 5 mL aliquots of thin, pudding, mixed fruit with a thin-consistency base, soft food, and hard food consistency barium was administered. With thin and mixed fruit with thin consistency as a base, flash penetration was visualized throughout the exam. The detailed report of this examination will be provided by speech pathology. 1.9 minutes of fluoroscopy time was utilized for this procedure. ROSINA
[2020-03-24 14:00] VITALS: BP 125/74
--- NOTE | 2020-03-24 17:20 | IPNPDOC ---
PM&R Progress Note DATE OF SERVICE: Mar 24, 2020 [employer] [facility] Assistant Progress Note DATE OF ADMISSION: Mar 10, 2020 at 18:32 DATE OF SERVICE: Mar 24, 2020 [employer] [facility] Assistant Progress Note INPATIENT REHABILITATION ADMISSION DAY: #14 SUBJECTIVE: Patient is a 69-year-old female with CVA, dysphagia, chronic respiratory issues related to multipack year history of smoking, mild right hemiparesis, ASCVD with CAD, carotid stenosis, generalized pain. Hyponatremia below 123 is now improving dropped a bit over weekend to 135. Appreciate assistance from hospitalist, fluid restrictions and additional salt seemed to have helped stabilized and she is clearer seems to have more endurance and ability to cooperate. Significant reflux noted on barium swallow last week, postural adjustments and Tums and patient education seemed to have helped. She is sleeping better and her voice is less gravelly and "wet". She does note regular bowel movements and less complaint of cough and less wheezing. Nursing notes finding of asymmetric blood pressure measurements both mechanically and manually, systolic 171 on the right, 121 on the left mechanically and 168 on the right, 90 on the left manually. Reported to hospitalist service still under evaluation. FUNCTIONAL STATUS: Improving mobility, transfers with standby to contact guard assistance and regular cues. REVIEW OF SYSTEMS: The following is a completed review of systems and has been reviewed. Review of systems otherwise unremarkable. PAIN: Patient self reports no pain EYES: No recent vision changes EARS, NOSE, & THROAT: No throat pain, +dysphagia CARDIOVASCULAR: Denies chest pain or palpitations PULMONARY: Denies shortness of breath, +cough persists an annoying, receiving regular, respiratory treatments GASTROINTESTINAL: Denies constipation/diarrhea GENITOURINARY: Increasing and persistently high postvoid residuals noted leading to need to replace Cutler. Patient has little or no symptomatic sensation of bladder distention even with high volumes over 500 mL MUSCULOSKELETAL: right sided weakness, notes tender "knot", area of tender ecchymosis posterior right calf , possibly hit her leg on something NEUROLOGICAL:apraxia/dysmetria, right sided paresis HEMATOLOGICAL: negative SKIN: denies rash PSYCHIATRIC: Unremarkable All other review of systems found to be negative. ALLERGIES: See Below MEDICATIONS: Reviewed, see below. PHYSICAL EXAMINATION: VITAL SIGNS: Please see below. GENERAL: Pleasant and cooperative. No acute distress. HEENT: PERRL. Extraocular movements intact. Clear conjunctiva, no adenopathy or thyromegaly. Voice less hoarse. CARDIOVASCULAR: Regular rate and rhythm. II/ SM LUNGS: fewer rhonchi and wheezes. ABDOMEN: Soft, nontender, nondistended. Positive bowel sounds. Normal active bowel sounds NEUROLOGICAL: Alert and oriented times three. Cranial nerves II through XII grossly intact. Sensation grossly intact EXTREMITIES: 5\\5 strength KARI/LE, 4/5 RUE, 5-\\5 strength right lower extremity. No deep calf tenderness, approximately 1.5 cm tender superficial nodular region, proximal posterior right calf surrounding ecchymoses noted, Ubaldo's negative, distal pulses intact. No peripheral edema. SKIN: intact . Multiple ecchymoses noted over all 4 extremities. ASSESSMENT:69-year-old F with past medical history of ID s/p stent and CVA with mild right hemiparesis, dysphagia, who presents status post right cerebellar and midbrain infarct, cleared swallowing study. However, at risk for aspiration, further vocal cord irritation from significant GERD. Assymmetric blood pressures call for adjustment in assessment and planning for BP management, requesting hospitalist input. PLAN: 1. Rehab- PT/OT advance gait and mobility, strengthen/stretch/maintain ROM all 4 limbs, ambulating with RW, contact-guard assistance. Progress to mod I -[employer] for dysphagia and cognition proceed with modified barium swallow today, family education and adjust dietary needs as indicated 2. Neuro- hx of CVA with right cerebellar midbrain infarct with right carotid artery stenosis- c/u ASA/Plavix, statin for secondary stroke prevention, tight BP control , -SNRI for motor recovery, meclizine and Zofran prn for possible vertigo/nausea/vomiting due to stroke - f/u family, requesting follow-up with vascular surgery on discharge, regarding carotid issues, possible other vascular issues, son apparently has already arranged ENT follow-up. 3. Cardiac- hx of ID s/p stenting, recent ECHO + for diastolic CHF, daily weights, on diuretics, continue to monitor for fluid overload- medicine consulted to assist in overall management -1 st degree AVB with recent bradycardia, c/u to avoid beta-blockers. Orthostatics measured with no change. -HTN c/u Cozaar/HCTZ, c/u hydralazine with holding parameters for elevated BPs and low BPs must ensure optimal BP measurement and clinical response as part of targeted treatment. 4. resp- monitor for infection, encourage incentive spirometry -current smoker, c/u duonebs and mucinex-cough c/u to improve repeat chest x-ray pending 5. GI ppx- protonix. Episode of hyponatremia as low as 123, improved to the upper 130s. 6. DVT ppx- lovenox, teds 7. Pain- tylenol prn -patient reporting bilateral leg spasms since stroke, c/u baclofen -Continue observe response to Cymbalta to help with bilateral elbow pain/ UE pa in 8. - urinary retention in setting of suspected neurogenic bladder-Not improving w flomax, UA negative . fewer accidents, residual volumes increased over 200. Family able to handle Cutler, due to lack of sensation, will proceed with placement Cutler prior to DC. 8. Dispo- family would like to bring her home, training in process, daughter in law is in nursing field and feels capable to manage all aspects. Allergies Coded Allergies: No Known Allergies (Verified Allergy, Unknown, 03/05/20) Vital Signs Vital Signs Date Time Temp Pulse Resp B/P (MAP) Pulse Ox O2 Delivery O2 Flow Rate FiO2 03/24/20 14:00 97.9 78 16 125/74 (91) 96 Room Air Current Medications Current Medications Current Medications Medications (Trade) Dose Ordered Sig/Dianna Route PRN Reason Start Time Stop Time Status Last Admin Dose Admin Acetaminophen (Tylenol Tab) 650 mg Q4HP PRN PO fever/MILD PAIN (PS 1-4) 03/10/20 17:30 03/23/20 21:51 Albuterol/ Ipratropium (Duoneb (Ipr 0.5mg/Alb 2.5mg)) 3 ml RQID NEB 03/10/20 20:00 03/24/20 15:11 Amlodipine Besylate (Norvasc) 5 mg BID PO 03/18/20 21:00 03/20/20 05:38 DC 03/19/20 20:47 Amlodipine Besylate (Norvasc) 10 mg DAILY PO 03/21/20 09:00 03/23/20 09:31 Aspirin (Ecotrin) 81 mg DAILY PO 03/11/20 09:00 03/24/20 08:55 Atorvastatin Calcium (Lipitor) 80 mg QHS PO 03/10/20 21:00 03/23/20 21:51 Baclofen (Lioresal) 5 mg TID PO 03/12/20 12:00 03/24/20 08:55 Bisacodyl (Dulcolax Suppository) 10 mg DAILYPRN PRN HI CONSTIPATION 03/10/20 17:30 Calcium Carbonate (Tums) 500 mg WM PO 03/20/20 08:00 03/20/20 07:45 DC Clopidogrel Bisulfate (PLAVix) 75 mg DAILY PO 03/11/20 09:00 03/24/20 08:55 Docusate Sodium (Colace) 100 mg BID PO 03/10/20 21:00 03/24/20 08:55 Duloxetine HCl (Cymbalta) 20 mg DAILY PO 03/14/20 09:00 03/24/20 08:56 Enoxaparin Sodium (Lovenox) 40 mg DAILY SC 03/11/20 09:00 03/24/20 08:56 Fluoxetine HCl (PROzac) 20 mg DAILY PO 03/11/20 09:00 03/13/20 16:25 DC 03/13/20 08:53 Guaifenesin (Robitussin Tab) 400 mg TID PO 03/10/20 21:00 03/22/20 15:15 DC 03/22/20 08:46 Guaifenesin (Robitussin) 20 ml TID PO 03/22/20 16:00 03/24/20 08:55 Hydralazine HCl (Apresoline) 25 mg Q6H PO 03/11/20 00:00 03/18/20 12:57 DC 03/18/20 12:51 Hydralazine HCl (Apresoline) 30 mg Q6HP PRN PO sbp>150 or dbp>90 03/18/20 13:00 03/20/20 05:38 DC Hydrochlorothiazide (Hydrodiuril) 12.5 mg DAILY PO 03/11/20 09:00 03/18/20 12:57 DC 03/18/20 08:19 Isosorbide Dinitrate (Isordil) 20 mg Q6H PO 03/18/20 18:00 03/20/20 05:38 DC 03/19/20 05:29 Isosorbide Dinitrate (Isordil) 30 mg BID PO 03/20/20 09:00 03/22/20 20:49 Levothyroxine Sodium (Synthroid) 12.5 mcg DAILY@06 PO 03/18/20 18:45 03/24/20 06:14 Losartan Potassium (Cozaar) 25 mg BID PO 03/18/20 21:00 03/20/20 05:38 DC 03/19/20 20:46 Losartan Potassium (Cozaar) 25 mg DAILY PO 03/11/20 09:00 03/18/20 12:58 DC 03/18/20 08:20 Losartan Potassium (Cozaar) 50 mg QAM PO 03/20/20 09:00 03/23/20 09:30 Magnesium Hydroxide (Milk Of Magnesia) 30 ml DAILYPRN PRN PO CONSTIPATION 03/10/20 17:30 Meclizine HCl (Antivert) 12.5 mg TIDP PRN PO DIZZINESS 03/10/20 17:30 Menthol/Methyl Salicylate (Bengay Cream) APPLY TO BILATERAL UP... BID TOP 03/13/20 09:00 03/13/20 15:35 DC Miscellaneous (Unresolved Clarification Entry) SEE LABEL COMMENTS DAILY XX 03/23/20 09:00 03/24/20 07:41 DC Ondansetron HCl (Zofran Odt) 4 mg Q4HP PRN PO NAUSEA OR VOMITING 03/10/20 17:30 Pantoprazole Sodium (Protonix) 40 mg BID PO 03/10/20 21:00 03/24/20 08:55 Senna (Senokot) 1 tab QHS PO 03/10/20 21:00 03/23/20 21:51 Sodium Chloride (Sodium Chloride) 1 gm WM PO 03/19/20 18:00 03/24/20 12:30 Tamsulosin HCl (Flomax) 0.4 mg QHS PO 03/11/20 21:00 03/14/20 14:21 DC 03/13/20 20:12 Tamsulosin HCl (Flomax) 0.8 mg QHS PO 03/14/20 21:00 03/23/20 21:52 MAI NGUYEN MD Mar 24, 2020 17:20
[2020-03-24 20:00] VITALS: BP 160/80
[2020-03-24] MEDS: TAMSULOSIN 0.4 MG CAP PO SCH (20:21)
[2020-03-24] MEDS: ATORVASTATIN 20 MG TAB PO SCH (20:22)
[2020-03-24] MEDS: SENNA 8.6 MG TAB (SENOKOT) PO SCH (20:22)
[2020-03-25] MEDS: LEVOTHYROXINE 12.5MCG PER 1/2 TAB (0.0125MG) PO SCH (06:08)
[2020-03-25 06:17] VITALS: BP 152/62
[2020-03-25] MEDS: IPRATROPIUM 0.5MG/ALBUTEROL 2.5MG INH SOL UD 3ML (DUONEB) NEB SCH ×3 (06:25→15:03)
[2020-03-25 06:55] LABS: BLOOD UREA NITROGEN 14 MG/DL (7-18); CALCIUM LEVEL 8.6 MG/DL (8.8-10.2); CARBON DIOXIDE LEVEL 26 MEQ/L (21-32); CHLORIDE LEVEL 104 MEQ/L (98-107); GLOMERULAR FILTRATION RATE > 60.0 (>45); GLUCOSE, FASTING 104 MG/DL (70-100); POTASSIUM SERUM 3.8 MEQ/L (3.5-5.1); SODIUM LEVEL 136 MEQ/L (136-145)
[2020-03-25 09:00] VITALS: BP 129/71
[2020-03-25] MEDS: ISOSORBIDE DIN. (ISORDIL) 30 MG TAB PO SCH (09:00)
[2020-03-25] MEDS: LOSARTAN 50MG TABLET PO SCH (09:00)
[2020-03-25] MEDS: REMEDY PHYTOPLEX Z-GUARD PASTE 113GM TUBE (FROM STOREROOM PRODUCT) TOP SCH (09:00)
[2020-03-25] MEDS: amLODIPine 10 MG TAB PO SCH (09:00)
[2020-03-25] MEDS: guaiFENesin SYRUP 200 MG/10 ML UDC PO SCH (09:21)
[2020-03-25] MEDS: ASPIRIN 81 MG ENTERIC TAB PO SCH (09:22)
[2020-03-25] MEDS: PANTOPRAZOLE 40MG TAB (PROTONIX) PO SCH (09:22)
[2020-03-25] MEDS: BACLOFEN 5MG PER 1/2 TABLET PO SCH (09:22)
[2020-03-25] MEDS: ENOXAPARIN 40MG/0.4ML SYRINGE (J1650 PER 10MG) SC SCH (09:22)
[2020-03-25] MEDS: CLOPIDOGREL 75 MG TAB PO SCH (09:22)
[2020-03-25] MEDS: DULoxetine 20 MG CAP (CYMBALTA) PO SCH (09:22)
[2020-03-25] MEDS: DOCUSATE SODIUM 100 MG CAP PO SCH (09:22)
[2020-03-25] MEDS: SODIUM CHLORIDE 1 GM TAB PO SCH ×2 (09:22→13:22)
--- NOTE | 2020-03-25 11:43 | DS.PDOC ---
PM&R Discharge Summary [employer] Discharge Note DATE OF ADMISSION: Mar 10, 2020 at 18:32 DATE OF ADMISSION: Mar 10, 2020 at 18:32 DATE OF DISCHARGE: Mar 25, 2020 DISCHARGE DIAGNOSES: Hypertension. History of right cerebellar midbrain infarct with right carotid artery stenosis, new Left CVA with right weakness, dysphagia, dysarthria ,cognitive deficits. GERD Hyponatremia ASCVD. Bradycardia. History of PR, status post stent. Neurogenic bladder with retention PAST MEDICAL HISTORY: CVA with right carotid stenosis ASCVD, CAD COPD HOSPITAL COURSE: 69F pmh left sided CVA without residual deficits, PR s/p stenting, HTN, HLD who developed right sided headache, vomiting, and right sided facial droop presenting to [facility] 03-04-20 where she was diagnosed likely stroke and transferred to [facility] for further work-up. MRI brain 03-05-20 showed, Large focus of acute ischemia demonstrated on diffusion weighted and ADC map images in the left cerebellar hemisphere which is T1 dark and T2 bright suggesting and acute to subacute infarct. MRA showed a right IC occlusion which was evaluated by vascular surgery who did not recommend surgical intervention, but to continue ASA and Plavix which was also recommended by neurology for stroke treatment. Patient was monitored on telemetry due to concerns for Afib, however none was identified, but her beta-sofi was discontinued due to 1st degree AV block with bradycardia. She was found to have considerable ADl and mobility impairments below her prior level of function and deemed medically appropriate for discharge to ARU on 03-10-20. Patient went comprehensive evaluation and interventions provided by PT, OT, speech-language therapy, rehabilitative nursing, and required continual close management of her complex medical conditions. Hyponatremia as low as 123. Noted improved with replenishment, fluid restrictions and was within normal limits at 136 at time of discharge. Due to persisting cough, hoarse, wet vocalizations, modified barium swallow was obtained showed that she was managing all consistencies. However, she did have significant reflux noted. There was some vocal cord irritation noted. Further consultation with ENT recommended post discharge. She was responding well to regular respiratory therapy treatments and is discharged on room air. During the course of her stay verbalizations improved in terms of volume of output and clarity of voice. She had numerous episodes of urinary retention, lacking sensation with volumes over 700 mL at times. Cutler insertion recommended at time of discharge, however, patient declined and will follow up with urology shortly after discharge. She demonstrated steady improvement in coordination and strength of the right upper and lower extremity, had a superficial nodular lesion over the posterior right calf. Probably related to hitting it on something. This was also associated with extensive ecchymoses. PHYSICAL EXAMINATION: GENERAL: Pleasant and cooperative. No acute distress. Vital signs stable. HEENT: PERRL. Extraocular movements intact. Clear conjunctiva, no adenopathy or thyromegaly. Voice less hoarse. CARDIOVASCULAR: Regular rate and rhythm. II/ SM LUNGS: Coarse breath sounds, no wheezes or ronchi, occasional rumbling cough observed. ABDOMEN: Soft, nontender, nondistended. Normal active bowel sounds NEUROLOGICAL: Alert and oriented times three. Cranial nerves II through XII grossly intact. Sensation grossly intact. EXTREMITIES: 5\5 strength KARI/LE, 4+/5 RUE, 5-\5 strength right lower extremity. No deep calf tenderness, tender superficial nodular region and ecchymosis nearly resolved right posterior calf, Ubaldo's negative, distal pulses intact. No peripheral edema. SKIN: intact . Multiple ecchymoses noted over all 4 extremities. OTHER TESTS: 03/19/2020 Modified barium swallow noted ability to manage cookie and overall reasonable swallowing capability, however, significant reflux, also noted LABORATORY DATA: Please see below. Sodium 136, potassium 3.8, creatinine 0.9, blood sugar 104, calcium 8.6 ALLERGIES: See below. MEDICATIONS: See Below. DISCHARGE DISPOSITION: Patient is to be discharged home with assistance. Her family. Multiple family education interactions have been held with particular emphasis on the importance of managing her oral intake and bladder needs. It was ascertained that she would require the use of a properly fitted manual wheelchair. She is of small stature, has a complex neurological disorder with bilateral brain involvement impacting balance, coordination and motor planning, possibly anticipated to progress and has anticipated protracted mobility limitations that will significantly impair her ability to participate in mobility related activities of daily living such as toileting, dressing, grooming and bathing and customary locations in the home. There is adequate access in the home for her to be able to utilize a wheelchair and maneuver between rooms and avoid remaining bedridden, which can only contribute to further decline worsening fatigue from her underlying cardiovascular condition. She is to follow-up with consultation with neurology, cardiology, urology in addition to her primary care provider. Vital Signs/I&O Vital Sign - Last 24 Hours 03/24/20 03/24/20 03/24/20 03/25/20 14:00 20:00 20:22 06:17 Temp 97.9 98.0 97.8 Pulse 78 78 90 Resp 16 21 B/P (MAP) 125/74 (91) 160/80 (106) 160/60 152/62 (92) Pulse Ox 96 96 93 O2 Delivery Room Air Room Air Room Air 03/25/20 03/25/20 03/25/20 09:00 09:00 09:00 Pulse 85 B/P (MAP) 129/71 129/71 129/71 I&O- Last 24 Hours up to 6 AM 03/25/20 06:00 Intake Total 480 ml Output Total 475 ml Balance 5 ml Laboratory Data CBC/BMP Laboratory Tests 03/23/20 15:06 03/25/20 06:16 Labs 48H Laboratory Tests 03/23/20 15:06: Sodium Level 135L, Potassium Level 3.6, Chloride Level 102, Carbon Dioxide Level 25, Anion Gap 8, Blood Urea Nitrogen 18, Creatinine 0.97, Glomerular Filtration Rate > 60.0, Fasting Glucose 94, Calcium Level 8.3L 03/25/20 06:16: Sodium Level 136, Potassium Level 3.8, Chloride Level 104, Carbon Dioxide Level 26, Anion Gap 6L, Blood Urea Nitrogen 14, Creatinine 0.90, Glomerular Filtration Rate > 60.0, Fasting Glucose 104H, Calcium Level 8.6L Medications Medications Current Medications Medications (Trade) Dose Ordered Sig/Dianna Route PRN Reason Start Time Stop Time Status Last Admin Dose Admin Acetaminophen (Tylenol Tab) 650 mg Q4HP PRN PO fever/MILD PAIN (PS 1-4) 03/10/20 17:30 03/23/20 21:51 Albuterol/ Ipratropium (Duoneb (Ipr 0.5mg/Alb 2.5mg)) 3 ml RQID NEB 03/10/20 20:00 03/25/20 06:25 Amlodipine Besylate (Norvasc) 5 mg BID PO 03/18/20 21:00 03/20/20 05:38 DC 03/19/20 20:47 Amlodipine Besylate (Norvasc) 10 mg DAILY PO 03/21/20 09:00 03/23/20 09:31 Aspirin (Ecotrin) 81 mg DAILY PO 03/11/20 09:00 03/25/20 09:22 Atorvastatin Calcium (Lipitor) 80 mg QHS PO 03/10/20 21:00 03/24/20 20:22 Baclofen (Lioresal) 5 mg TID PO 03/12/20 12:00 03/25/20 09:22 Bisacodyl (Dulcolax Suppository) 10 mg DAILYPRN PRN SD CONSTIPATION 03/10/20 17:30 Calcium Carbonate (Tums) 500 mg WM PO 03/20/20 08:00 03/20/20 07:45 DC Clopidogrel Bisulfate (PLAVix) 75 mg DAILY PO 03/11/20 09:00 03/25/20 09:22 Docusate Sodium (Colace) 100 mg BID PO 03/10/20 21:00 03/25/20 09:22 Duloxetine HCl (Cymbalta) 20 mg DAILY PO 03/14/20 09:00 03/25/20 09:22 Enoxaparin Sodium (Lovenox) 40 mg DAILY SC 03/11/20 09:00 03/25/20 09:22 Fluoxetine HCl (PROzac) 20 mg DAILY PO 03/11/20 09:00 03/13/20 16:25 DC 03/13/20 08:53 Guaifenesin (Robitussin Tab) 400 mg TID PO 03/10/20 21:00 03/22/20 15:15 DC 03/22/20 08:46 Guaifenesin (Robitussin) 20 ml TID PO 03/22/20 16:00 03/25/20 09:21 Hydralazine HCl (Apresoline) 25 mg Q6H PO 03/11/20 00:00 03/18/20 12:57 DC 03/18/20 12:51 Hydralazine HCl (Apresoline) 30 mg Q6HP PRN PO sbp>150 or dbp>90 03/18/20 13:00 03/20/20 05:38 DC Hydrochlorothiazide (Hydrodiuril) 12.5 mg DAILY PO 03/11/20 09:00 03/18/20 12:57 DC 03/18/20 08:19 Isosorbide Dinitrate (Isordil) 20 mg Q6H PO 03/18/20 18:00 03/20/20 05:38 DC 03/19/20 05:29 Isosorbide Dinitrate (Isordil) 30 mg BID PO 03/20/20 09:00 03/24/20 20:22 Levothyroxine Sodium (Synthroid) 12.5 mcg DAILY@06 PO 03/18/20 18:45 03/25/20 06:08 Losartan Potassium (Cozaar) 25 mg BID PO 03/18/20 21:00 03/20/20 05:38 DC 03/19/20 20:46 Losartan Potassium (Cozaar) 25 mg DAILY PO 03/11/20 09:00 03/18/20 12:58 DC 03/18/20 08:20 Losartan Potassium (Cozaar) 50 mg QAM PO 03/20/20 09:00 03/23/20 09:30 Magnesium Hydroxide (Milk Of Magnesia) 30 ml DAILYPRN PRN PO CONSTIPATION 03/10/20 17:30 Meclizine HCl (Antivert) 12.5 mg TIDP PRN PO DIZZINESS 03/10/20 17:30 Menthol/Methyl Salicylate (Bengay Cream) APPLY TO BILATERAL UP... BID TOP 03/13/20 09:00 03/13/20 15:35 DC Miscellaneous (Unresolved Clarification Entry) SEE LABEL COMMENTS DAILY XX 03/23/20 09:00 03/24/20 07:41 DC Ondansetron HCl (Zofran Odt) 4 mg Q4HP PRN PO NAUSEA OR VOMITING 03/10/20 17:30 Pantoprazole Sodium (Protonix) 40 mg BID PO 03/10/20 21:00 03/25/20 09:22 Senna (Senokot) 1 tab QHS PO 03/10/20 21:00 03/24/20 20:22 Sodium Chloride (Sodium Chloride) 1 gm WM PO 03/19/20 18:00 03/25/20 09:22 Tamsulosin HCl (Flomax) 0.4 mg QHS PO 03/11/20 21:00 03/14/20 14:21 DC 03/13/20 20:12 Tamsulosin HCl (Flomax) 0.8 mg QHS PO 03/14/20 21:00 03/24/20 20:21 Scheduled Aspirin (Children's Aspirin) 81 Mg Tab.chew, 81 MG PO DAILY Atorvastatin Calcium (Atorvastatin Calcium) 80 Mg Tablet, 80 MG PO QHS Clopidogrel Bisulfate (Clopidogrel) 75 Mg Tablet, 75 MG PO DAILY Docusate Sodium (Docusate Sodium) 100 Mg Capsule, 100 MG PO BID Hydrochlorothiazide (Hydrochlorothiazide) 12.5 Mg Capsule, 12.5 MG PO DAILY Losartan Potassium (Cozaar) 25 Mg Tablet, 25 MG PO DAILY Scheduled PRN Acetaminophen (Acetaminophen) 325 Mg Tablet, 650 MG PO Q4H PRN for PAIN OR FEVER Aluminum/Magnesium/Simeth (Mag-Al Plus Suspension) 30 Ml Oral.susp, 30 ML PO DAILY PRN for DYSPEPSIA Allergies Coded Allergies: No Known Allergies (Verified Allergy, Unknown, 03/05/20) MAI NGUYEN MD Mar 25, 2020 11:43
[2020-03-25 14:00] VITALS: BP 140/60
[2020-03-25] MEDS ORDERED: AMLO1TAB25 PO (14:17)
[2020-03-25] MEDS ORDERED: ISOS30TAB PO (14:17)
[2020-03-25] MEDS ORDERED: CYMB1CAP4 PO (14:17)
[2020-03-25] MEDS ORDERED: BACL10TA2 PO (14:17)
[2020-03-25] MEDS ORDERED: IPRA0.00 NEB (14:17)
[2020-03-25] MEDS ORDERED: GUAI100S51 PO (14:17)
[2020-03-25] MEDS ORDERED: LEVO25TA5 PO (14:18)
[2020-03-25] MEDS ORDERED: PANT40TA29 PO (14:18)
[2020-03-25] MEDS ORDERED: MECL12.589 PO (14:18)
[2020-03-25] MEDS ORDERED: FLOM0.4C39 PO (14:18)
== END 2020-03-25 15:55 | disposition home health service (06) | DRG 57 ==
LOC: M PM&R 03-10 18:32
PROVIDERS: ADMIT Physical Medicine & Rehabilitation; ATTEND Physical Medicine & Rehabilitation
DX: I69.351 Hemiplegia and hemiparesis following cerebral infarction affecting right dominant side (principal); E87.1 Hypo-osmolality and hyponatremia; I25.2 Old myocardial infarction; I10 Essential (primary) hypertension; E78.5 Hyperlipidemia, unspecified; I44.0 Atrioventricular block, first degree; R00.1 Bradycardia, unspecified; I69.390 Apraxia following cerebral infarction; I69.322 Dysarthria following cerebral infarction; R27.8 Other lack of coordination; K21.9 Gastro-esophageal reflux disease without esophagitis; R13.10 Dysphagia, unspecified; I69.321 Dysphasia following cerebral infarction; I69.313 Psychomotor deficit following cerebral infarction; I25.10 Atherosclerotic heart disease of native coronary artery without angina pectoris; M62.838 Other muscle spasm; I65.21 Occlusion and stenosis of right carotid artery; I16.0 Hypertensive urgency; F17.200 Nicotine dependence, unspecified, uncomplicated; I69.398 Other sequelae of cerebral infarction; N31.9 Neuromuscular dysfunction of bladder, unspecified; R33.9 Retention of urine, unspecified; Z95.5 Presence of coronary angioplasty implant and graft; Z79.82 Long term (current) use of aspirin; Z79.02 Long term (current) use of antithrombotics/antiplatelets; Z79.899 Other long term (current) drug therapy; Z74.09 Other reduced mobility; Z74.1 Need for assistance with personal care